=== PATIENT | female | born 2000 | race Caucasian/White ===

== ENCOUNTER 2021-07-20 23:27 | Observation (INO) ==
[2021-07-21 00:01] LABS: Basophils # (auto) 0.02 K/uL (0-0.2); Basophils % (auto) 0.2 %; Eosinophils # (auto) 0.24 K/uL (0-0.5); Eosinophils % (auto) 2.2 %; Hematocrit (blood only) 38.7 % (37-47); Immature Granulocytes % (auto) 0.9 %; Lymphocytes # (auto) 2.96 K/uL (1.2-3.4); Lymphocytes % (auto) 27.2 %; Mean Corpuscular Hemoglobin 28.3 pg (25-34); Mean Corpuscular Hgb Conc 33.6 g/dL (32-36); Mean Corpuscular Volume 84.3 fL (80-100); Mean Platelet Volume 9.9 fL (7.4-10.4); Monocytes # (auto) 0.68 K/uL (0.11-0.59); Monocytes % (auto) 6.3 %; Neutrophils # (auto) 6.87 K/uL (1.4-6.5); Neutrophils % (auto) 63.2 %; Platelet Count 516 K/uL (130-400); RDW Coefficient of Variation 13.1 % (11.5-14.5); RDW Standard Deviation 39.4 fL (36.4-46.3); Red Blood Count 4.59 M/uL (4.2-5.4); White Blood Count 10.87 K/uL (4.8-10.8)
[2021-07-21 00:22] LABS: BUN Creatinine Ratio 6.1 (10-20); Calcium 9.3 mg/dl (8.5-10.1)
[2021-07-21 00:28] LABS: Albumin Globulin Ratio 0.6 (0.9-2); Bilirubin,Total 0.4 mg/dl (0.2-1); Globulin 5.2 gm/dl (2.5-4.0); Total Protein 8.2 gm/dl (6.4-8.2)
[2021-07-21] MEDS ORDERED: ONDANSETRON INJ 2 MG/ML 2 ML VIAL IV STA (01:05)
--- NOTE | 2021-07-21 01:07 | Emergency Department Note ---
History of Present Illness General Chief complaint: GI Assessment Stated complaint: CONSTANT DIARRHEA,BLOATING,DEHYDR,ABD PAIN Time Seen by Provider: 07/21/21 00:48 History of Present Illness Maximum Pain Intensity: 5 This is a 21-year-old female that presents to the emergency department via private vehicle with complaints of "diarrhea, abdominal pain, dehydration". The patient notes that she presented to the emergency department at [facility] in late June. She notes that she was diagnosed with a kidney stone. She subsequently had a ureteral stent placed. A few days after this she began with vomiting. She presented to the emergency department. It was found that she had aspirated during the vomiting and subsequently required intubation and mechanical ventilation. She was in the ICU and mechanically ventilated for about 1.5 days. Patient states that she was recently discharged. She was doing well in the outpatient setting however did present to the emergency department on July 17 just a few days ago where she was evaluated for chest pain. At that time she was placed on colchicine and NSAIDs and was diagnosed with acute pericardial effusion, pleural effusion, pericarditis. She was also diagnosed with a UTI and placed on ciprofloxacin which she has been compliant with. She states that now she has developed diarrhea that is watery in nature and over the past 24 hours has had about 20 episodes of watery diarrhea. She also notes some lower abdominal discomfort. No known trauma or injury. She has not been able to eat or drink secondary to significant nausea. She feels as though when she attempts to eat or drink she will vomit. Patient does note that she recently was evaluated by cardiology. No shortness of breath. No fevers or chills. Home Medications Medication Instructions Recorded Confirmed Type ciprofloxacin HCl 500 mg tablet 500 mg PO BID #20 tab 07/17/21 07/21/21 Rx colchicine 0.6 mg capsule 0.6 mg PO BID #20 cap 07/17/21 07/21/21 Rx oxycodone 5 mg tablet 5 mg PO Q6H PRN 07/17/21 07/21/21 History hyoscyamine sulfate 0.125 mg 0.125 mg SUBLINGUAL Q6H PRN 07/21/21 07/21/21 History sublingual tablet phenazopyridine 200 mg tablet 200 mg PO TID PRN 07/21/21 07/21/21 History tamsulosin 0.4 mg capsule 0.4 mg PO HS 07/21/21 07/21/21 History Allergies Allergy/AdvReac Type Severity Reaction Status Date / Time No Known Allergies Allergy Verified 07/21/21 01:19 Past Med/Surg History Medical History History of kidney infection History of kidney stones Family History Father Kidney stone Social History Smoking Status: Never smoker Preferred Language: Guyanese Feels Safe at Home: Yes Review of Systems A total of 10 systems reviewed and were otherwise negative Physical Exam Vital Signs Vital Signs - 24 hr 07/20/21 23:32 07/21/21 01:21 07/21/21 02:30 Temperature 36.6 C Temperature Source Temporal Artery Scan Pulse Rate 116 H Pulse Rate [Finger] 86 102 H Pulse Rhythm [Finger] Regular Respiratory Rate 20 18 22 Respiratory Effort / Characteristics Non-Labored Non-Labored Spontaneous Respiratory Depth Normal Normal Normal Respiratory Pattern Regular Blood Pressure 137/94 Blood Pressure [Left Arm] 118/73 124/83 Blood Pressure Mean 108 Blood Pressure Mean [Left Arm] 88 96 Blood Pressure Position [Left Arm] Lying Pulse Oximetry 96 98 97 Oxygen Delivery Method Room Air Room Air Room Air Sepsis Recent Fever Within 48 Hours No Sepsis New/Unexplained Change in Mental Status N/A Sepsis Action Taken by Nursing No Action Required 07/21/21 03:00 07/21/21 04:05 07/21/21 04:30 Temperature Temperature Source Pulse Rate Pulse Rate [Finger] 100 H 95 H 99 H Pulse Rhythm [Finger] Respiratory Rate 18 18 18 Respiratory Effort / Characteristics Respiratory Depth Respiratory Pattern Blood Pressure Blood Pressure [Left Arm] 104/64 123/77 120/75 Blood Pressure Mean Blood Pressure Mean [Left Arm] 77 92 90 Blood Pressure Position [Left Arm] Pulse Oximetry 96 96 96 Oxygen Delivery Method Room Air Room Air Sepsis Recent Fever Within 48 Hours Sepsis New/Unexplained Change in Mental Status Sepsis Action Taken by Nursing 07/21/21 05:35 Temperature Temperature Source Pulse Rate Pulse Rate [Finger] 100 H Pulse Rhythm [Finger] Respiratory Rate 18 Respiratory Effort / Characteristics Respiratory Depth Respiratory Pattern Blood Pressure Blood Pressure [Left Arm] 124/79 Blood Pressure Mean Blood Pressure Mean [Left Arm] 94 Blood Pressure Position [Left Arm] Pulse Oximetry 96 Oxygen Delivery Method Sepsis Recent Fever Within 48 Hours Sepsis New/Unexplained Change in Mental Status Sepsis Action Taken by Nursing VITAL SIGNS - Vital signs and nursing notes were reviewed. Stable and afebrile. GENERAL - 21-year-old female appearing her stated age who is in no acute distress. Communicates well with provider and answers questions appropriately. SKIN - Without rashes. No meningeal or petechial rash. HEAD - NC/AT. EYES - PERRL with EOMI bilaterally. Sclera anicteric. EARS - No deformities of external structures noted on gross examination bilaterally. NOSE - Midline and without cyanosis. MOUTH/OROPHARYNX - Without perioral cyanosis. NECK - Neck with FROM. No nuchal rigidity. LUNGS - Chest wall symmetric without accessory muscle use, intercostals retractions, or central cyanosis. Normal vesicular breath sounds CTA B/L. No wheezes, rales, or rhonchi appreciated. CARDIAC - RRR with S1/S2. No murmur, rubs, or gallops appreciated. ABDOMEN - Abdominal contour normal without pulsations or visible masses. BS normoactive all four quadrants. There is generalized lower abdominal tenderness to palpation. No palpable masses, hepatosplenomegaly, or ascites noted. EXTREMITIES - No clubbing or peripheral cyanosis. +5/5 strength noted in UE/LE bilaterally. NEUROLOGIC - Cranial nerves II through XII grossly intact. PSYCH - A&O, and cooperates fully with examiner. Pt is very pleasant and interacts well with examiner. Course Administered Medications Discontinued Medications Sodium Chloride (Nss 1000ml) 1,000 mls @ 999 mls/hr IV .Q1H1M TRES Stop: 07/21/21 02:15 Last Infusion: 07/21/21 02:22 Dose: 0 mls/hr Documented by: [id number] Admin: 07/21/21 01:21 Dose: 999 mls/hr Documented by: [id number] Ceftriaxone Sodium (Rocephin) 1,000 mg in 50 mls @ 100 mls/hr IV NOW STA Stop: 07/21/21 03:58 Last Admin: 07/21/21 04:00 Dose: Not Given Documented by: [id number] Piperacillin Sod/Tazobactam Sod (Zosyn) 4.5 gm in 120 mls @ 240 mls/hr IV NOW ONE Stop: 07/21/21 04:01 Last Infusion: 07/21/21 04:42 Dose: 0 mls/hr Documented by: [id number] Admin: 07/21/21 04:04 Dose: 240 mls/hr Documented by: [id number] Ioversol (Optiray 320 100ml) 95 ml IV ONCE ONE Stop: 07/21/21 02:21 Last Admin: 07/21/21 02:21 Dose: 95 ml Documented by: [id number] Morphine Sulfate (Morphine Sulfate 4 Mg/Ml 1 Ml Carp\\Vial) 4 mg IV NOW STA Stop: 07/21/21 02:45 Last Admin: 07/21/21 02:53 Dose: 4 mg Documented by: [id number] Ondansetron HCl (Ondansetron Inj 2 Mg/Ml 2 Ml Vial) 4 mg IV NOW STA Stop: 07/21/21 01:06 Last Admin: 07/21/21 01:21 Dose: 4 mg Documented by: [id number] Medical Decision Making Laboratory Data Result diagrams: 07/20/21 23:46 07/21/21 01:25 Lab Results 07/20/21 07/20/21 07/21/21 Range/Units 23:46 23:46 01:25 WBC 10.87 H (4.8-10.8) K/uL RBC 4.59 (4.2-5.4) M/uL Hgb 13.0 (12.0-16.0) g/dL Hct 38.7 (37-47) % MCV 84.3 (80-100) fL MCH 28.3 (25-34) pg MCHC 33.6 (32-36) g/dL RDW Std Deviation 39.4 (36.4-46.3) fL RDW Coeff of Mann 13.1 (11.5-14.5) % Plt Count 516 H (130-400) K/uL MPV 9.9 (7.4-10.4) fL Immature Gran % (Auto) 0.9 % Neut % (Auto) 63.2 % Lymph % (Auto) 27.2 % Luce % (Auto) 6.3 % Eos % (Auto) 2.2 % Baso % (Auto) 0.2 % Neut # (Auto) 6.87 H (1.4-6.5) K/uL Lymph # (Auto) 2.96 (1.2-3.4) K/uL Luce # (Auto) 0.68 H (0.11-0.59) K/uL Eos # (Auto) 0.24 (0-0.5) K/uL Baso # (Auto) 0.02 (0-0.2) K/uL Immature Gran # (Auto) 0.10 H (0.00-0.02) K/uL Sodium 134 L (136-145) mmol/L Potassium 3.7 (3.5-5.1) mmol/L Chloride 104 (98-107) mmol/L Carbon Dioxide 24 (21-32) mmol/L Anion Gap 6.0 (3-11) BUN 5 L (7-18) mg/dl Creatinine 0.79 (0.6-1.2) mg/dl Est Cr Clr Drug Dosing 14.0 ml/min Est GFR ( Amer) 124.0 ml/min Est GFR (Non-Af Amer) 107.0 ml/min BUN/Creatinine Ratio 6.1 L (10-20) Glucose 124 H (70-99) mg/dl Lactate (0.4-2.0) mmol/L Calcium 9.3 (8.5-10.1) mg/dl Magnesium Cancelled 1.8 Total Bilirubin 0.4 (0.2-1) mg/dl AST (15-37) U/L ALT 34 (12-78) U/L Alkaline Phosphatase 109 (45-117) U/L Total Protein 8.2 (6.4-8.2) gm/dl Albumin 3.0 L (3.4-5.0) gm/dl Globulin 5.2 H (2.5-4.0) gm/dl Albumin/Globulin Ratio 0.6 L (0.9-2) Lipase 161 (73-393) U/L Urine Color Urine Appearance (Clear) Urine pH (4.5-7.5) Ur Specific [place] (1.000-1.030) Urine Protein (Negative) Urine Glucose (UA) (Negative) Urine Ketones (Negative) Urine Blood (Negative) Urine Nitrite (Negative) Urine Bilirubin (Negative) Urine Urobilinogen (Negative) Ur Leukocyte Esterase (Negative) Urine WBC (Auto) (0-5) /hpf Urine RBC (Auto) (0-4) /hpf U Hyaline Cast (Auto) (0-5) /lpf U Epithel Cells (Auto) (0-5) /lpf Urine Bacteria (Auto) (Negative) Ur Renal Epithelial Cell Calcium Oxalate Crystal (None Prsent) Urine Mucus (None Prsent) POC Ur Test (NEG) SARS-CoV-2, RNA, NAAT (NEGATIVE) 07/21/21 07/21/21 07/21/21 Range/Units 02:03 02:03 04:06 WBC (4.8-10.8) K/uL RBC (4.2-5.4) M/uL Hgb (12.0-16.0) g/dL Hct (37-47) % MCV (80-100) fL MCH (25-34) pg MCHC (32-36) g/dL RDW Std Deviation (36.4-46.3) fL RDW Coeff of Mann (11.5-14.5) % Plt Count (130-400) K/uL MPV (7.4-10.4) fL Immature Gran % (Auto) % Neut % (Auto) % Lymph % (Auto) % Luce % (Auto) % Eos % (Auto) % Baso % (Auto) % Neut # (Auto) (1.4-6.5) K/uL Lymph # (Auto) (1.2-3.4) K/uL Luce # (Auto) (0.11-0.59) K/uL Eos # (Auto) (0-0.5) K/uL Baso # (Auto) (0-0.2) K/uL Immature Gran # (Auto) (0.00-0.02) K/uL Sodium (136-145) mmol/L Potassium (3.5-5.1) mmol/L Chloride (98-107) mmol/L Carbon Dioxide (21-32) mmol/L Anion Gap (3-11) BUN (7-18) mg/dl Creatinine (0.6-1.2) mg/dl Est Cr Clr Drug Dosing ml/min Est GFR ( Amer) ml/min Est GFR (Non-Af Amer) ml/min BUN/Creatinine Ratio (10-20) Glucose (70-99) mg/dl Lactate 1.3 (0.4-2.0) mmol/L Calcium (8.5-10.1) mg/dl Magnesium Total Bilirubin (0.2-1) mg/dl AST (15-37) U/L ALT (12-78) U/L Alkaline Phosphatase (45-117) U/L Total Protein (6.4-8.2) gm/dl Albumin (3.4-5.0) gm/dl Globulin (2.5-4.0) gm/dl Albumin/Globulin Ratio (0.9-2) Lipase (73-393) U/L Urine Color Dark Yellow Urine Appearance Clear (Clear) Urine pH 5.0 (4.5-7.5) Ur Specific [place] 1.014 (1.000-1.030) Urine Protein 2+ H (Negative) Urine Glucose (UA) Negative (Negative) Urine Ketones Negative (Negative) Urine Blood 3+ H (Negative) Urine Nitrite Positive A (Negative) Urine Bilirubin Negative (Negative) Urine Urobilinogen Negative (Negative) Ur Leukocyte Esterase Trace H (Negative) Urine WBC (Auto) 10-30 H (0-5) /hpf Urine RBC (Auto) >30 H (0-4) /hpf U Hyaline Cast (Auto) 5-10 H (0-5) /lpf U Epithel Cells (Auto) >30 H (0-5) /lpf Urine Bacteria (Auto) 1+ H (Negative) Ur Renal Epithelial Cell Not Reportable Calcium Oxalate Crystal Present A (None Prsent) Urine Mucus Present A (None Prsent) POC Ur Test NEG (NEG) SARS-CoV-2, RNA, NAAT (NEGATIVE) 07/21/21 Range/Units 04:20 WBC (4.8-10.8) K/uL RBC (4.2-5.4) M/uL Hgb (12.0-16.0) g/dL Hct (37-47) % MCV (80-100) fL MCH (25-34) pg MCHC (32-36) g/dL RDW Std Deviation (36.4-46.3) fL RDW Coeff of Mann (11.5-14.5) % Plt Count (130-400) K/uL MPV (7.4-10.4) fL Immature Gran % (Auto) % Neut % (Auto) % Lymph % (Auto) % Luce % (Auto) % Eos % (Auto) % Baso % (Auto) % Neut # (Auto) (1.4-6.5) K/uL Lymph # (Auto) (1.2-3.4) K/uL Luce # (Auto) (0.11-0.59) K/uL Eos # (Auto) (0-0.5) K/uL Baso # (Auto) (0-0.2) K/uL Immature Gran # (Auto) (0.00-0.02) K/uL Sodium (136-145) mmol/L Potassium (3.5-5.1) mmol/L Chloride (98-107) mmol/L Carbon Dioxide (21-32) mmol/L Anion Gap (3-11) BUN (7-18) mg/dl Creatinine (0.6-1.2) mg/dl Est Cr Clr Drug Dosing ml/min Est GFR ( Amer) ml/min Est GFR (Non-Af Amer) ml/min BUN/Creatinine Ratio (10-20) Glucose (70-99) mg/dl Lactate (0.4-2.0) mmol/L Calcium (8.5-10.1) mg/dl Magnesium Total Bilirubin (0.2-1) mg/dl AST (15-37) U/L ALT (12-78) U/L Alkaline Phosphatase (45-117) U/L Total Protein (6.4-8.2) gm/dl Albumin (3.4-5.0) gm/dl Globulin (2.5-4.0) gm/dl Albumin/Globulin Ratio (0.9-2) Lipase (73-393) U/L Urine Color Urine Appearance (Clear) Urine pH (4.5-7.5) Ur Specific [place] (1.000-1.030) Urine Protein (Negative) Urine Glucose (UA) (Negative) Urine Ketones (Negative) Urine Blood (Negative) Urine Nitrite (Negative) Urine Bilirubin (Negative) Urine Urobilinogen (Negative) Ur Leukocyte Esterase (Negative) Urine WBC (Auto) (0-5) /hpf Urine RBC (Auto) (0-4) /hpf U Hyaline Cast (Auto) (0-5) /lpf U Epithel Cells (Auto) (0-5) /lpf Urine Bacteria (Auto) (Negative) Ur Renal Epithelial Cell Calcium Oxalate Crystal (None Prsent) Urine Mucus (None Prsent) POC Ur Test (NEG) SARS-CoV-2, RNA, NAAT NEGATIVE (NEGATIVE) Imaging Data Radiologist's Impression: CT ABDOMEN & PELVIS With Contrast: Direct comparison made to prior study from June 15, 2014. The liver is low in attenuation suggesting diffuse fatty infiltration. The spleen and pancreas appear normal. The gallbladder is contracted. Stomach and small bowel and colon appear normal. The appendix is not visualized. There are some areas of diminished enhancement in the right kidney and there is an 8 x 6 x 7 mm focal fluid collection adjacent to the posterior cortex. There is a right nephroureteral stent in standard position. Bladder appears normal. Uterus appears normal. There are mildly enlarged retroperitoneal lymph nodes. Vascular structures appear normal. There is no free peritoneal air, or fluid. Impression: Areas of diminished enhancement in the right kidney suggesting pyelonephritis. Small focal fluid collections adjacent posterior cortex may reflect an early abscess formation. Nephroureteral stent in place Radiologist: Lj Oh MD Study ready at 02:35 and initial results transmitted at 03:00 MDM Narrative Patient was seen and evaluated as above in room C07. Review was performed of triage nursing notes and vital signs. I did review pertinent previous visits and patient history. After obtaining a thorough history and physical examination the above work up was performed. Patient presents to us today with a rather recently complex past medical history. Her vital signs are overall stable. She is not actively vomiting but does have lower abdominal tenderness. She also has been experiencing several episodes of diarrhea over the past 24 hours. In short, the patient had a kidney stone, subsequently a ureteral stent was placed and a few days after began with vomiting and aspirated requiring intubation followed by mechanical ventilation and ICU stay. She was discharged and overall doing well and then developed some chest pain of which she was evaluated for here a few days ago. She at that time was diagnosed with an acute pericardial effusion, pleural effusion and pericarditis. She was placed on colchicine and NSAIDs for the findings listed previously as well as Cipro for UTI. She has been compliant with this medication. Options of care were discussed with the patient. IV access was established. Labs were drawn. Mild leukocytosis at 10.87. No anemia. No emergent metabolic disturbance. Mild hyponatremia at 134. Glucose 124. Pro-Guillermo 0.06. Urinalysis concerning for potential UTI. Culture pending. Review was performed of previous blood culture and urine culture. Urine culture did not grow out any distinct bacteria previously. CT scan was obtained of the abdomen and pelvis. Results as above. There is comments of areas of diminished enhancement in the right kidney suggesting pyelonephritis. Small focal fluid collections adjacent posterior cortex may reflect an early abscess. I discussed this with the patient, as well as the on-call urology PA, Humberto Ruggiero. He came to evaluate the patient. Please refer to his note regarding consultation. Case then discussed with the hospitalist service for admission/further evaluation and management. Patient was ordered broad-spectrum antibiotics. She was ordered 4.5 g of IV Zosyn. While here she was hydrated with IV normal saline as well as medicated for her pain with IV morphine and Zofran for her nausea. Please refer to further documentation regarding her stay. Case was discussed with the attending physician. GCS: 15 In the evaluation and treatment of this patient the following differential diagnoses were entertained: UTI, pyelonephritis, renal abscess, sepsis, COVID- 19, among others. Impression & Plan Pyelonephritis of right kidney, Intractable diarrhea, Abscess of right kidney Discharge Plan Visit Data Chief Complaint: GI Assessment Stated Complaint: CONSTANT DIARRHEA,BLOATING,DEHYDR,ABD PAIN ED Provider: Marcy Mckenzie ED Midlevel Provider: Wilfred Vargas Discharge Problem: Pyelonephritis of right kidney, Intractable diarrhea, Abscess of right kidney Patient Disposition: Admitted As Inpatient Condition: Good Forms Stand Alone Forms: [facility] Prescriptions Prescriptions: No Action oxycodone 5 mg tablet 5 mg PO Q6H PRN (Reason: Pain) RF: 0 ciprofloxacin HCl 500 mg tablet 500 mg PO BID Qty: 20 RF: 0 colchicine 0.6 mg capsule 0.6 mg PO BID Qty: 20 RF: 0 phenazopyridine 200 mg tablet 200 mg PO TID PRN (Reason: BLADDER PAIN) RF: 0 tamsulosin 0.4 mg capsule 0.4 mg PO HS RF: 0 hyoscyamine sulfate 0.125 mg tablet, sublingual 0.125 mg sublingual Q6H PRN (Reason: ABD PAIN) RF: 0 Referrals Referrals: Darvin Arteaga [Primary Care Provider] -
[2021-07-21] MEDS ORDERED: SODIUM CHLORIDE 0.9% 1000ML 1,000 ML IV SCH (01:15)
[2021-07-21 01:40] LABS: Potassium 3.7 mmol/L (3.5-5.1)
[2021-07-21 01:42] LABS: Magnesium 1.8 mg/dl (1.8-2.4)
[2021-07-21 02:16] LABS: Appearance Urine Clear (Clear); Bilirubin Urine Negative (Negative); Blood Urine 3+ (Negative); Color Urine Dark Yellow; Epithelial Cell Urine Auto >30 /lpf (0-5); Glucose Urine UA Negative (Negative); Ketones Urine Negative (Negative); Leukocyte Esterase Urine Trace (Negative); Nitrite Urine Positive (Negative); Protein Urine 2+ (Negative); RBC Urine Automated >30 /hpf (0-4); Specific Gravity Urine 1.014 (1.000-1.030); Urobilinogen Urine Negative (Negative)
[2021-07-21] MEDS ORDERED: OPTIRAY 320 100ml IV ONE (02:20)
[2021-07-21 02:30] LABS: Calcium Oxalate Crystals Urine Present (None Prsent); Mucus Urine Present (None Prsent)
[2021-07-21 02:31] LABS: Bacteria Urine Automated 1+ (Negative)
[2021-07-21] MEDS ORDERED: MoRPHine SULFATE 4 MG/ML 1 ML CARP\\VIAL IV STA (02:44)
[2021-07-21] MEDS ORDERED: cefTRIAXone SODIUM 1,000 MG/50 ML BAG IV STA (03:29)
[2021-07-21] MEDS ORDERED: PIPERACILLIN/TAZOBACTAM 4.5 GM/120 ML BAG IV ONE (03:32)
[2021-07-21] MEDS ORDERED: PIPERACILL/TAZOBAC CONSULT ACTIVE PRN ×2 (03:32→06:18)
--- NOTE | 2021-07-21 03:48 | Urology Consultation ---
Date of Consultation July 21, 2021 Assessment & Plan (1) Pyelonephritis: Patient is being admitted on the hospitalist service. We recommend proceeding as follows: Provide analgesics Provide antiemetics Due to the patient's pyelonephritis it is recommended the broad-spectrum antibiotics to be initiated particularly since the patient recently completed a course of Cipro. Reading emergency room clinician has initiated Zosyn which should continue. Urine culture has been sent and antibiotics can be tailored based on the results of this. Provide IV fluid for hydration Patient has evidence of a potential developing renal abscess. As the abscesses less than 1 cm in size is not amenable to drainage at this time. Will follow patient clinically along with serial labs. If she fails to clinically improve consideration can be given to reimaging her to see if there is further dev elopment of the size of this potential abscess. Remainder of plan as directed by the medical service Supervising Physician Co-Signing Physician Notes Agree with above documentation and plan. It does appear that she is developing a small perinephric collection - but the size of the collection is small enough that conservative management is certainly the best course. Cont IV abx for now. Supportive care for now. Stent well positioned - no plan for any surgical intervention until all infectious issues are resolved. History of Present Illness Reason for Consultation: Pyelonephritis History of Present Illness This is a 21-year-old female with a somewhat complicated recent past medical history. The patient notes that she was seen at a hospital in [place] at the end of June of this year secondary to a right-sided kidney stone. Patient notes that on July 01 she underwent a cystoscopy with a right ureteral stent placement. She notes that plans were in place for her to undergo lithotripsy but that this has yet to be performed. Patient notes that proximally 2 days after her cystoscopy and ureteral stent placement she had episode of nausea vomiting at which time she aspirated and again presented to the emergency department at [place]. Because of her aspiration she required intubation and mechanical ventilation. Patient notes that she was on a ventilator for approximately 1-1/2 days but was ultimately discharged home from that hospitalization and she completed a course of antibiotics in the form of Augmentin and Flagyl. Following her hospitalization in [place] she presented to the [facility] emergency department on July 17 secondary to pleuritic chest pain. At her emergency department visits patient did have labs and imaging jf fuller I reviewed. A CBC revealed white blood cell count was 10.6. Hemoglobin and hematocrit were noted to be normal. Her platelet count was elevated at 631,000. A chemistry profile at that time showed sodium and potassium were both within normal range. Her BUN and creatinine were also both noted to be normal. Urinalysis at that time showed cloudy appearing urine with positive nitrites, 1+ leukocyte esterase, 10-30 white blood cells per high-power field, and no bacteria. Yeast was noted to be present as well. A chest CT at that time showed no evidence of pulmonary emboli. A trace right pleural effusion and a trace pericardial effusion were noted. No pneumonia was noted on that study. The right kidney was partially visualized on the study that showed some right perinephric edema and some inflammation. Treating emergency room physician did discuss the pericardial effusion with cardiology and is felt that outpatient follow-up is appropriate. Patient was provided with colchicine and NSAIDs. In addition due to the inflammatory changes noted of the right kidney the case was discussed with Dr. Montesinos of urology. Patient did have blood and urine cultures obtained in the emergency department. These were reviewed and there is no growth on blood cultures. Urine culture did show 3 types of organisms and low counts and no sensitivities were obtained. The patient did receive Rocephin in the emergency department and was ultimately discharged home on oral Cipro. Patient presented to [facility] emergency department today secondary to constant diarrhea and abdominal bloating along with some generalized abdominal pain. She also reports some right-sided flank pain along with urinary frequency and some dysuria. She does note some pleuritic type chest pain that is noted to be worse with deep inspirations. He denies any lightheadedness or dizziness. She denies any fevers, shakes, chills. She had labs and imaging during this visit which I independently reviewed. A CBC revealed white blood cell count was 10.8. Hemoglobin and hematocrit are both noted be normal. Platelet count had a slight elevation at 516,000. Chemistry profile showed sodium was 134. Potassium is 3.7. BUN and creatinine are 5 and 0.7. Urinalysis shows dark yellow urine which is positive for nitrites. There is trace leukocyte esterase. 10-30 white blood cells per high-power field are noted along with 1+ bacteria. A urine test was noted to be negative. A CT scan of the abdomen and pelvis was performed this demonstrated an 8 x 6 x 7 mm fluid collection adjacent to the posterior cortex of the right kidney suggestive of an early abscess. A right ureteral stent was noted to be in place. Inflammatory changes suggestive of pyelonephritis were noted. At the time of my interview the patient was resting comfortably in bed. She was noted to be afebrile, and normotensive. She was in no distress. A slight tachycardia with a heart rate of 100-104 was present. She was also noted to have a pulse ox of 96% on room air. Allergies Allergy/AdvReac Type Severity Reaction Status Date / Time No Known Allergies Allergy Verified 07/21/21 01:19 Home Medications Medication Instructions Recorded Confirmed Type ciprofloxacin HCl 500 mg tablet 500 mg PO BID #20 tab 07/17/21 07/21/21 Rx colchicine 0.6 mg capsule 0.6 mg PO BID #20 cap 07/17/21 07/21/21 Rx oxycodone 5 mg tablet 5 mg PO Q6H PRN 07/17/21 07/21/21 History hyoscyamine sulfate 0.125 mg 0.125 mg SUBLINGUAL Q6H PRN 07/21/21 07/21/21 History sublingual tablet phenazopyridine 200 mg tablet 200 mg PO TID PRN 07/21/21 07/21/21 History tamsulosin 0.4 mg capsule 0.4 mg PO HS 07/21/21 07/21/21 History Patient History Medical History History of kidney infection History of kidney stones Family History Father Kidney stone Social History Smoking Status: Never smoker Hx Alcohol Use: No Hx Substance Use: No Preferred Language: Australian Communication Ability: Effective Wheelage Clerk Required: No Beliefs That Will Affect Care: None Feels Safe at Home: Yes Assistive Devices: None Past Medical History PMF Narrative: Past medical history: 1. History of aspiration pneumonia 2. History of pericardial effusion 3. History of pleural effusion Past surgical history: 1. History of cystoscopy with right ureteral stent placement Review of Systems Constitutional: no fever and no chills Ear, Nose, Mouth, Throat: no ear pain Respiratory: + pain on inspiration; no cough and no dyspnea Cardiovascular: + chest pain (Noted with inspiration) Gastrointestinal: + abdominal pain, + nausea and + vomiting Genitourinary: + dysuria, + urinary frequency and + flank pain (Right sided) Musculoskeletal: + back pain (Right-sided flank pain) Integumentary: no rash Neurologic: no localized weakness Physical Exam Constitutional: well developed and well nourished; no acute distress Eyes: no conjunctival abnormality ENMT: Ears: no hearing impairment Mouth: no oropharynx abnormality Neck: trachea midline Respiratory: normal respiratory effort; no respiratory distress and no labored breathing Breath sounds noted to be slightly decreased at bases Cardiovascular: Rate/Rhythm: regular rate and regular rhythm Gastrointestinal (Abdomen): Abdomen is soft and nondistended. Bowel sounds are present. There is some minor pain in a generalized fashion with palpation Musculoskeletal: No calf tenderness Skin: no rashes Neurologic: moves all extremities Psychiatric: Orientation: alert and oriented x 3 Affect: euthymic affect Results & Data ([facility]) Vital Signs (Past 12 Hours) Vital Signs Temp Pulse Pulse Resp BP BP Pulse Ox 07/21/21 03:00 100 H 18 104/64 96 07/21/21 02:30 102 H 22 124/83 97 07/21/21 01:21 86 18 118/73 98 07/20/21 23:32 36.6 C 116 H 20 137/94 96 PG Care Time/CCT Total # of Minutes Spent Total Time Spent with Patient: Total time spent is greater than 50% in coordination of care (as documented) at patient's floor/unit and/or counseling patient: Coding Level of Care Code 75806 Inpt Consult Level 5 Diagnoses Pyelonephritis N12
--- NOTE | 2021-07-21 05:10 | History & Physical Report ---
Date of Service July 21, 2021 Assessment & Plan (1) Pyelonephritis of right kidney: Plan: Right pyelonephritis/early perinephric abscess/nephroureteral stent- Previously on Augmentin and Flagyl after discharge to [facility]. Started on ciprofloxacin on July 17 at [facility] ED Follow urine culture sensitivity Continue Zosyn 4.5 g IV every 8 hours begun in the ED (2) Perinephric abscess: Plan: See above (3) Acute pericardial effusion: Plan: Pericardial effusion/pericarditis- Was seen by cardiology Dr. Viera in [facility] a few days ago. At that time colchicine was increased from 0.6 twice daily to 3 times daily. Patient unfortunately does not seem to have tolerated the increased dose of colchicine well. He was to review times the acute worsening of her diarrhea on the first toe she took to 3 times daily dosing, and was significantly worse the past 24 hours For now we will hold colchicine. She had been on ibuprofen, which was also discontinued recently Place on methylprednisolone 20 mg IV every 8 hours Consult with cardiology Dr. Viera during the day to coordinate care (4) Pericarditis: Plan: See above (5) Intractable diarrhea: Plan: Differential includes antibiotic associated diarrhea versus C. difficile colitis versus adverse reaction to colchicine 3 times daily dosing Stool studies pending, follow results Cholestyramine 4 g p.o. twice daily with meals Hold colchicine for now Place on Florastor p.o. twice daily History of Present Illness Chief Complaint: The patient presents to the emergency department with complaint of constant diarrhea, abdominal pain and bloating, and feelings of dehydration, worsening over the past 24 to 36 hours. Primary Care Provider: Darvin Arteaga The patient is a 21-year-old female with a past medical history including acute pericardial effusion, pleural effusion, pericarditis, kidney stones, pyelonephritis and urinary tract infection. The patient underwent a cystoscopy with right ureteral stent placement on July 01 without complication. She reports that 2 days later, she developed nausea and vomiting, developed moist later diagnosed as an aspiration pneumonia, and was admitted to [facility] ICU on mechanical ventilator. She was later discharged on Augmentin and Flagyl, and more recently was changed to ciprofloxacin orally. On July 17 the patient was seen at [facility] emergency department due to pleuritic chest pain, underwent a CT scan which was negative for PE, but did show a trace right pleural effusion and trace pericardial effusion. At that time, she was placed on colchicine 0.6 mg twice daily and ibuprofen. She was also started on ciprofloxacin 5 mg p.o. twice daily at that time as well. She reports seeing steward dishwasher Dr. Viera at [facility], where echocardiogram did note pericardial effusion, and she reports that her colchicine was increased from twice daily to 3 times daily. Shortly after starting the 3 times daily dosing, she developed significant diarrhea, which is now on the second day, has become very severe with BMs to frequent to enumerate. For these reasons she presented to [facility] emergency department for further assessment. CT scan of abdomen the pelvis at [facility] ED this evening: Right pyelonephritis with perinephric abscess, right nephroureteral stent. Abnormal laboratories: Magnesium 1.8, albumin 3.0, WBC 10.87, hemoglobin 13.0, hematocrit 30.7, platelets 516. COVID-19 testing in the ED this evening is negative Allergies Allergy/AdvReac Type Severity Reaction Status Date / Time No Known Allergies Allergy Verified 07/21/21 01:19 Home Medications Medication Instructions Recorded Confirmed Type ciprofloxacin HCl 500 mg tablet 500 mg PO BID #20 tab 07/17/21 07/21/21 Rx colchicine 0.6 mg capsule 0.6 mg PO BID #20 cap 07/17/21 07/21/21 Rx oxycodone 5 mg tablet 5 mg PO Q6H PRN 07/17/21 07/21/21 History hyoscyamine sulfate 0.125 mg 0.125 mg SUBLINGUAL Q6H PRN 07/21/21 07/21/21 History sublingual tablet phenazopyridine 200 mg tablet 200 mg PO TID PRN 07/21/21 07/21/21 History tamsulosin 0.4 mg capsule 0.4 mg PO HS 07/21/21 07/21/21 History Past Med/Surg History Medical History (Updated 07/21/21 @ 05:50 by Bradley Taylor MD) History of kidney infection History of kidney stones Family History Father Kidney stone Social History Smoking Status: Never smoker Preferred Language: Filipino Feels Safe at Home: Yes Review of Systems Review of Systems: The patient denies chest pain, palpitations, shortness of breath, dyspnea on exertion, cough, lower extremity swelling, sore throat, fevers, chills, sweats, vomiting, blood in urine or stool, dysuria, urinary frequency or urgency, lightheadedness, dizziness, headache, memory loss, loss of consciousness, rash, abnormal bruising or bleeding, imbalance, focal or generalized weakness, numbness or tingling in arms or legs, generalized arthralgias or myalgias, neck pain, or night sweats. The review of systems is otherwise negative other than for that already noted above, and at least 10 systems have been reviewed. Physical Exam Physical Exam: The patient is awake, alert and oriented 3, well developed and well nourished, normocephalic and atraumatic, lying in bed and in no acute distress. HEENT--PERRL, EOMI, mucous membranes and oropharynx mildly dry. Neck--supple. No JVD. No bruits. Thyroid normal, trachea midline, no adenopathy. Heart--normal S1 and S2. No murmurs, rubs or gallops. Lungs--clear bilaterally, no respiratory distress, no accessory muscle use. Abdomen--normal bowel sounds and soft. Nontender. Nondistended. Extremities--no cyanosis or clubbing. No edema. Dermatologic--normal skin turgor, normal color, no abnormal lymph nodes, no rash. Neurologic--cranial nerves II through XII grossly intact. Rheumatologic--limited exam Psychiatric--normal affect. Results & Data Results & Data ([facility]) Vital Signs (Past 12 Hours) Vital Signs Temp Pulse Pulse Resp BP BP Pulse Ox 07/21/21 04:30 99 H 18 120/75 96 07/21/21 04:05 95 H 18 123/77 96 07/21/21 03:00 100 H 18 104/64 96 07/21/21 02:30 102 H 22 124/83 97 07/21/21 01:21 86 18 118/73 98 07/20/21 23:32 97.9 F 116 H 20 137/94 96 Laboratory Results Laboratory Results WBC 10.87 K/uL (4.8-10.8) H 07/20/21 23:46 RBC 4.59 M/uL (4.2-5.4) 07/20/21 23:46 Hgb 13.0 g/dL (12.0-16.0) 07/20/21 23:46 Hct 38.7 % (37-47) 07/20/21 23:46 MCV 84.3 fL (80-100) 07/20/21 23:46 MCH 28.3 pg (25-34) 07/20/21 23:46 MCHC 33.6 g/dL (32-36) 07/20/21 23:46 RDW Std Deviation 39.4 fL (36.4-46.3) 07/20/21 23:46 RDW Coeff of Mann 13.1 % (11.5-14.5) 07/20/21 23:46 Plt Count 516 K/uL (130-400) H 07/20/21 23:46 MPV 9.9 fL (7.4-10.4) 07/20/21 23:46 Immature Gran % (Auto) 0.9 % 07/20/21 23:46 Neut % (Auto) 63.2 % 07/20/21 23:46 Lymph % (Auto) 27.2 % 07/20/21 23:46 [place] % (Auto) 6.3 % 07/20/21 23:46 Eos % (Auto) 2.2 % 07/20/21 23:46 Baso % (Auto) 0.2 % 07/20/21 23:46 Neut # (Auto) 6.87 K/uL (1.4-6.5) H 07/20/21 23:46 Lymph # (Auto) 2.96 K/uL (1.2-3.4) 07/20/21 23:46 [place] # (Auto) 0.68 K/uL (0.11-0.59) H 07/20/21 23:46 Eos # (Auto) 0.24 K/uL (0-0.5) 07/20/21 23:46 Baso # (Auto) 0.02 K/uL (0-0.2) 07/20/21 23:46 Immature Gran # (Auto) 0.10 K/uL (0.00-0.02) H 07/20/21 23:46 Sodium 134 mmol/L (136-145) L 07/20/21 23:46 Potassium 3.7 mmol/L (3.5-5.1) 07/21/21 01:25 Chloride 104 mmol/L (98-107) 07/20/21 23:46 Carbon Dioxide 24 mmol/L (21-32) 07/20/21 23:46 Anion Gap 6.0 (3-11) 07/20/21 23:46 BUN 5 mg/dl (7-18) L 07/20/21 23:46 Creatinine 0.79 mg/dl (0.6-1.2) 07/20/21 23:46 Est Cr Clr Drug Dosing 14.0 ml/min 07/20/21 23:46 Est GFR ( Amer) 124.0 ml/min 07/20/21 23:46 Est GFR (Non-Af Amer) 107.0 ml/min 07/20/21 23:46 BUN/Creatinine Ratio 6.1 (10-20) L 07/20/21 23:46 Glucose 124 mg/dl (70-99) H 07/20/21 23:46 Lactate 1.3 mmol/L (0.4-2.0) 07/21/21 04:06 Calcium 9.3 mg/dl (8.5-10.1) 07/20/21 23:46 Magnesium 1.8 mg/dl (1.8-2.4) 07/21/21 01:25 Total Bilirubin 0.4 mg/dl (0.2-1) 07/20/21 23:46 AST U/L (15-37) 07/20/21 23:46 ALT 34 U/L (12-78) 07/20/21 23:46 Alkaline Phosphatase 109 U/L (45-117) 07/20/21 23:46 Total Protein 8.2 gm/dl (6.4-8.2) 07/20/21 23:46 Albumin 3.0 gm/dl (3.4-5.0) L 07/20/21 23:46 Globulin 5.2 gm/dl (2.5-4.0) H 07/20/21 23:46 Albumin/Globulin Ratio 0.6 (0.9-2) L 07/20/21 23:46 Lipase 161 U/L (73-393) 07/20/21 23:46 Procalcitonin 0.06 ng/ml (0-0.5) 07/21/21 04:06 Urine Color Dark Yellow 07/21/21 02:03 Urine Appearance Clear (Clear) 07/21/21 02:03 Urine pH 5.0 (4.5-7.5) 07/21/21 02:03 Ur Specific [place] 1.014 (1.000-1.030) 07/21/21 02:03 Urine Protein 2+ (Negative) H 07/21/21 02:03 Urine Glucose (UA) Negative (Negative) 07/21/21 02:03 Urine Ketones Negative (Negative) 07/21/21 02:03 Urine Blood 3+ (Negative) H 07/21/21 02:03 Urine Nitrite Positive (Negative) A 07/21/21 02:03 Urine Bilirubin Negative (Negative) 07/21/21 02:03 Urine Urobilinogen Negative (Negative) 07/21/21 02:03 Ur Leukocyte Esterase Trace (Negative) H 07/21/21 02:03 Urine WBC (Auto) 10-30 /hpf (0-5) H 07/21/21 02:03 Urine RBC (Auto) >30 /hpf (0-4) H 07/21/21 02:03 U Hyaline Cast (Auto) 5-10 /lpf (0-5) H 07/21/21 02:03 U Epithel Cells (Auto) >30 /lpf (0-5) H 07/21/21 02:03 Urine Bacteria (Auto) 1+ (Negative) H 07/21/21 02:03 Ur Renal Epithelial Cell Not Reportable 07/21/21 02:03 Calcium Oxalate Crystal Present (None Prsent) A 07/21/21 02:03 Urine Mucus Present (None Prsent) A 07/21/21 02:03 POC Ur Test NEG (NEG) 07/21/21 02:03 SARS-CoV-2, RNA, NAAT NEGATIVE (NEGATIVE) 07/21/21 04:20 Diagnostic Findings [facility] Patient: GUERDA OHARA (Female) : 00 Status: ER Date: 07/21/21 02:26 Room #: History: PT. REPORTS LOWER ABDOMINAL PAIN TO RT. FLANK PAIN AND DIARRHEA PT. REPORTS SHE IS CURRENTLY ON ANTIBIOTICS APPENDIX PRESENT OPTI 320 95 CC Slices: [id number] Priors: Tech: Akanksha Fu @ [phone] Exams: CT ABDOMEN & PELVIS With Contrast Contrast: IV Amt: OPTIRAY 320 [id number] CC Accession Numbers: [id number] Referring Physician: REFERRED SELF Preliminary Findings Only See Final Report For Complete Findings CT ABDOMEN & PELVIS With Contrast: Direct comparison made to prior study from June 15, 2014. The liver is low in attenuation suggesting diffuse fatty infiltration. The spleen and pancreas appear normal. The gallbladder is contracted. Stomach and small bowel and colon appear normal. The appendix is not visualized. There are some areas of diminished enhancement in the right kidney and there is an 8 x 6 x 7 mm focal fluid collection adjacent to the posterior cortex. There is a right nephroureteral stent in standard position. Bladder appears normal. Uterus appears normal. There are mildly enlarged retroperitoneal lymph nodes. Vascular structures appear normal. There is no free peritoneal air, or fluid. Impression: Areas of diminished enhancement in the right kidney suggesting pyelonephritis. Small focal fluid collections adjacent posterior cortex may reflect an early abscess formation. Nephroureteral stent in place Radiologist: Lj Oh MD Study ready at 02:35 and initial results transmitted at 03:00 *This report constitutes a preliminary interpretation only. Non-acute findings felt to be unrelated to the clinical presentation may not be discussed in this report. The study will be interpreted and a final report will be generated by the local Radiologist the following shift. To reach the hospital radiology department call [phone]. If a discrepancy is found between the preliminary and final interpre tations of this study, please notify us via our Client Portal at [email or web address], under QA Exams. You can also fax this report with a description of the discrepancy, or include the final report, to our daytime fax number [phone]. If faxing, please indicate the severity of discrepancy using one of the following categories: [ ] 1 - Agree/Informational [ ] 2 - Unlikely to Affect Management [ ] 3 - Possible Eventual Change of Management [ ] 4 - Probable Immediate Change of Management For all other patient related information, please fax us at [phone]. [id number] Code Status & VTE Plan Code Status Full code VTE Prophylaxis Plan VTE Prophylaxis will be ordered: Yes PG Care Time/CCT Total # of Minutes Spent Total Time Spent with Patient: Total time spent is greater than 50% in coordination of care (as documented) at patient's floor/unit and/or counseling patient: Coding Level of Care Code 46909 Initial Inpt Care Lvl 3 Diagnoses Pyelonephritis of right kidney N12 Perinephric abscess N15.1 Acute pericardial effusion I30.9 Pericarditis I31.9 Chronicity: unspecified Pericarditis type: unspecified type Intractable diarrhea R19.7 (1) Pericarditis Chronicity: unspecified Pericarditis type: unspecified type Qualified Code(s): I31.9 - Disease of pericardium, unspecified
[2021-07-21] MEDS ORDERED: HYOSCYAMINE SULFATE 0.125 MG TAB PO PRN (06:18)
[2021-07-21] MEDS ORDERED: ONDANSETRON INJ 2 MG/ML 2 ML VIAL IV PRN (06:18)
[2021-07-21] MEDS ORDERED: PHENAZOPYRIDINE HCL 200 MG TAB PO PRN (06:18)
[2021-07-21] MEDS ORDERED: ACETAMINOPHEN 325 MG TAB PO PRN (06:18)
[2021-07-21] MEDS ORDERED: MAGNESIUM SULFATE / D5W 1 GM/100 ML BAG IV ONE (06:30)
[2021-07-21] MEDS: oxyCODONE HCL IR 5 MG TAB (IMMEDIATE RELEASE) PO PRN ×3 (06:43→20:37)
[2021-07-21] MEDS: methylPREDNISolone 20 MG in SYRINGE 0 ML IV SCH ×3 (06:43→20:37)
[2021-07-21] MEDS ORDERED: FLUARIX QUADRIVALENT 0.5 ML SYR IM ONE (08:00)
--- NOTE | 2021-07-21 09:13 | CT Scan Report ---
CT abd pelvis IV con only CLINICAL HISTORY: Lower abd pain, diarrhea, on antibiotics TECHNIQUE: Helical axial images of the abdomen and pelvis were obtained and displayed. Automated dose lowering techniques and/or adjustment according to patient size were utilized for this exam. This e xam was performed with intravenous contrast. COMPARISON: Comparison is made to CT abdomen and pelvis 06/15/2014 FINDINGS: Lower chest: Bibasilar atelectasis is seen. Liver: Hepatic steatosis is noted. Gallbladder and biliary tree: The gallbladder is contracted. No intra- or extrahepatic biliary ductal dilation. Pancreas: Unremarkable, no focal lesions. Spleen: Splenule is incidentally noted. Adrenals: Unremarkable. Kidneys and ureters: There is heterogeneous hypoenhancement of the right kidney with suggestion of we dge-shaped morphology. There is surrounding fat stranding. There is a small rim-enhancing collection in the posterior aspect of the right kidney measuring approximately 13 mm in diameter. A right nephro ureteral stent is seen with mild caliectasis versus hydronephrosis. The left kidney is unremarkable. Bladder: Limited evaluation due to underdistention. Reproductive organs: Unremarkable. Bowel: Unremarkable. Lymph nodes Retroperitoneal: Subcentimeter lymph nodes are noted. Mesenteric: Unremarkable. Pelvic: Unremarkable. Peritoneum: Normal Vessels: Unremarkable. Abdominal wall: Unremarkable. Bones: Unremarkable. IMPRESSION: Right pyelonephritis with a small posterior fluid collection which may reflect developing abscess. A nephroureteral stent is in place on the right. ACT 112: Negative or not required by law. Electronically signed by: Farshad Steward M.D. 07/21/2021 9:12 AM
[2021-07-21] MEDS: SACCHAROMYCES BOULARDII 250 MG CAP PO SCH ×2 (09:41→20:37)
[2021-07-21] MEDS: CHOLESTYRAMINE LIGHT 4 GM PKT PO SCH ×2 (09:42→20:39)
[2021-07-21] MEDS: PIPERACILLIN/TAZOBACTAM 4.5 GM in DEXTROSE 5% 100 ML IV SCH ×2 (09:45→17:17)
--- NOTE | 2021-07-21 15:44 | History & Physical Bridge Note ---
Date of Service July 21, 2021 History & Physical Bridge Note I have examined the patient, reviewed the History & Physical and in the interval since the performance of the History & Physical I have noted the following changes of clinical significance: Feeling better. Has some 6/10 pain in the right flank. Only has pain in the substernal region with deep inspiration. Denies shortness of breath. Has some dysuria she thinks is from the ureteral stent. Telemetry with sinus rhythm and sinus tachycardia with rates in the 90s to 100s Only one loose stool early this morning which was negative for C. difficile. Vitals reviewed Gen: AAOx3, NAD HEENT: Anicteric sclerae, EOMI CV: RRR no mgr nl S1S2 Pulm: CTAB no wcr Abd: +BS soft NT ND no masses or hernias Ext: No edema, 2+ DP pulses Skin: No rashes, warm/dry Neuro: Labs reviewed full strength throughout 21-year-old female here with recent history of right ureteral stent placement with complicated postoperative course of aspiration pneumonia requiring intubation, pericarditis and pleural effusion, now here with diarrhea secondary to colchicine and also with right perinephric abscess and pyelonephritis -Continue IV Zosyn -Follow cultures -Continue IV steroids for pericarditis -Check echocardiogram
[2021-07-21] MEDS: TAMSULOSIN HCL 0.4 MG CAP PO SCH (20:37)
[2021-07-22] MEDS: PIPERACILLIN/TAZOBACTAM 4.5 GM in DEXTROSE 5% 100 ML IV SCH ×3 (02:11→17:03)
[2021-07-22] MEDS: methylPREDNISolone 20 MG in SYRINGE 0 ML IV SCH (06:06)
[2021-07-22 07:04] LABS: Basophils # (auto) 0.01 K/uL (0-0.2); Basophils % (auto) 0.1 %; Eosinophils # (auto) 0.01 K/uL (0-0.5); Eosinophils % (auto) 0.1 %; Hematocrit (blood only) 35.7 % (37-47); Hemoglobin 12.2 g/dL (12.0-16.0); Immature Granulocytes # (auto) 0.08 K/uL (0.00-0.02); Immature Granulocytes % (auto) 0.6 %; Lymphocytes # (auto) 1.66 K/uL (1.2-3.4); Lymphocytes % (auto) 12.9 %; Mean Corpuscular Hemoglobin 28.3 pg (25-34); Mean Corpuscular Hgb Conc 34.2 g/dL (32-36); Mean Corpuscular Volume 82.8 fL (80-100); Mean Platelet Volume 9.9 fL (7.4-10.4); Monocytes # (auto) 0.49 K/uL (0.11-0.59); Monocytes % (auto) 3.8 %; Neutrophils # (auto) 10.58 K/uL (1.4-6.5); Neutrophils % (auto) 82.5 %; Platelet Count 443 K/uL (130-400); RDW Coefficient of Variation 13.1 % (11.5-14.5); RDW Standard Deviation 39.7 fL (36.4-46.3); Red Blood Count 4.31 M/uL (4.2-5.4); White Blood Count 12.83 K/uL (4.8-10.8)
[2021-07-22 07:36] LABS: Albumin Level 2.8 gm/dl (3.4-5.0); BUN Creatinine Ratio 8.6 (10-20); Calcium 9.5 mg/dl (8.5-10.1); Est GFR (African American) 144.2 ml/min; Est GFR (Non-African American) 124.4 ml/min; Magnesium 2.3 mg/dl (1.8-2.4); Potassium 3.9 mmol/L (3.5-5.1)
[2021-07-22 07:38] LABS: Albumin Globulin Ratio 0.6 (0.9-2); Bilirubin,Total 0.5 mg/dl (0.2-1); Globulin 4.7 gm/dl (2.5-4.0); Total Protein 7.5 gm/dl (6.4-8.2)
[2021-07-22] MEDS: SACCHAROMYCES BOULARDII 250 MG CAP PO SCH ×2 (08:49→19:35)
[2021-07-22] MEDS: oxyCODONE HCL IR 5 MG TAB (IMMEDIATE RELEASE) PO PRN ×2 (08:49→19:39)
--- NOTE | 2021-07-22 09:29 | Urology Progress Note ---
Date of Service July 22, 2021 Assessment & Plan (1) Pyelonephritis of right kidney: Plan: stent on the right - complex course since the stent was placed - possible small perinephric abscess - this developed despite a recent course of cipro - had a plan for stent removal in [place], but this was delayed secondary to cardiac developments - given the current findings - leukocytosis, CT findings, etc - she will likely need further abx therapy prior to stent removal - she is planning to contact her urologist tomorrow to arrange for f/u - no plans for any intervention during this hospitalization - please call if further issues during her current stay Admission and Anticipated Discharge Date Admission Date: July 21, 2021 Subjective subjectively feeling better some stent pain, particularly at the end of voiding has a plan to follow up with her urology team in [place] Physical Exam Physical Exam: comfortable appearing afeb overnight non-tachy abd soft, minimal right flank tenderness Results & Data ([facility]) Vital Signs (Past 12 Hours) Vital Signs Temp Pulse Pulse Resp BP Pulse Ox 07/22/21 07:39 36.7 C 71 16 102/70 95 07/22/21 03:15 36.4 C L 92 H 94/63 L 94 07/22/21 00:43 91 H 07/21/21 23:53 36.6 C 85 20 97/63 L 94 PG Care Time/CCT Total # of Minutes Spent Total Time Spent with Patient: Total time spent is greater than 50% in coordination of care (as documented) at patient's floor/unit and/or counseling patient: Coding Level of Care Code 32808 Subseq Hosp Care Lvl 3 Diagnoses Pyelonephritis of right kidney N12
[2021-07-22] MEDS: CHOLESTYRAMINE LIGHT 4 GM PKT PO SCH (10:29)
--- NOTE | 2021-07-22 10:36 | Electrocardiogram Report ---
Test Reason : Blood Pressure : / mmHG Vent. Rate : 092 BPM Atrial Rate : 092 BPM P-R Int : 164 ms QRS Dur : 076 ms QT Int : 374 ms P-R-T Axes : 002 002 -12 degrees QTc Int : 462 ms Normal sinus rhythm Cannot rule out Inferior infarct , age undetermined Nonspecific ST abnormality Anterior leads Abnormal ECG When compared with ECG of 17-JUL-2021 14:27, Criteria for Anterior infarct are no longer Present Nonspecific T wave abnormality no longer evident in Lateral leads Confirmed by Alex Simpson ([id number]) on 07/22/2021 10:36:15 AM Referred By: REFERRED SELF Confirmed By:Alex Simpson
[2021-07-22] MEDS ORDERED: predniSONE 20 MG TAB PO SCH (12:00)
--- NOTE | 2021-07-22 12:10 | Hospitalist Progress Note ---
Date of Service July 22, 2021 Assessment & Plan (1) Intractable diarrhea: Plan: Presented with severe diarrhea in the setting of taking increased dose of colchicine 3 times daily for her acute pericarditis as below C. difficile is negative, stool culture pending but no growth to date Diarrhea has completely resolved with discontinuation of high-dose colchicine as well as addition of cholestyramine and Florastor Electrolytes normal and she is with improved hydration -Restarting colchicine at lower dose for pericarditis as below -Add on Imodium as needed -Discontinue cholestyramine -Continue Florastor -If diarrhea returns with addition of colchicine, would have to discontinue it and switch back to corticosteroids for pericarditis (2) Pyelonephritis of right kidney: Plan: Right pyelonephritis/early perinephric abscess/nephroureteral stent- Had right ureteral stent placed for stone on 07/01 at [facility] Had complicated postoperative course with nausea/vomiting leading to aspiration pneumonia and ventilator dependent respiratory failure She was then on Augmentin and Flagyl after discharge but seems this was more for the aspiration pneumonia? Seen in the [facility] ER on 07/17 for chest pain related to acute pericarditis but was found to have UTI-started on ciprofloxacin at that time Her acute presentation to the hospital this time was more for her diarrhea, and not consistent with worsening pyelonephritis CT abdomen/pelvis on 07/20 does show small right perinephric abscess and evidence of acute pyelonephritis, UA consistent with UTI, and with mild leukocytosis Remains afebrile and has had the same right flank pain ever since she had the stent placed -I would not consider this necessarily a failure of Cipro, but with profuse diarrhea, she may not have been absorbing the Cipro very well -Appreciate urology consultation-would not perform any urologic intervention in the setting of acute infection-stent is in good position -Continue IV Zosyn for now -Follow urine and blood cultures -May be able to convert back to Cipro upon discharge and would continue extended course for abscess -Consider repeat imaging with renal ultrasound in the near future -Continue oxycodone as needed for pain, is also on ibuprofen as below for pericarditis (3) Perinephric abscess: Plan: See above (4) Pericarditis: Plan: Presented to ER on 07/17 with pleuritic chest pain CT angiogram of the chest negative for PE, but did show trace pericardial effusion She was discharged home on colchicine 0.6 mg p.o. twice daily and as needed ibuprofen. She followed up with Dr. Viera of [place] cardiology at which time she was having continued chest pain and her colchicine was increased to 3 times daily dosing. Admitted with severe diarrhea as above secondary to colchicine 3 times daily dosing ECG here initially with some nonspecific inferior and anterior T wave changes which are now improved on repeat ECG Echocardiogram here shows normal biventricular systolic function, no valvular abnormalities, trace posterior and small anterior pericardial effusion, thickening of the visceral pericardium of the anterior apical aspect of the right ventricle, no evidence of cardiac tamponade Was placed on IV Solu-Medrol initially here and has had significant improvement in the chest pain In my discussions with cardiology in the past, it seems that there may be some increased incidence of recurrent pericarditis if corticosteroids are used. First-line treatment would be colchicine and NSAIDs. -Patient agreeable to restarting colchicine at a lower dose at 0.6 mg p.o. twice daily -DC IV Solu-Medrol -Start ibuprofen 600 mg p.o. every 8 hours scheduled for now until pain is gone and then taper down and make it as needed after that -Will need outpatient follow-up with her dulser in [place] after discharge (5) Acute pericardial effusion: Plan: As above (6) Nonsustained ventricular tachycardia: Plan: Had one 5 beat run of V. tach overnight on 07/21 that was asymptomatic Ejection fraction is normal Continue to monitor on telemetry Plan: DVT prophylaxis-encourage ambulation, SCDs Disposition-continued stay on telemetry, but possible discharge to home on Friday if continues to improve Admission and Anticipated Discharge Date Admission Date: July 21, 2021 Subjective Chest pain with deep inspiration is almost completely resolved and she feels much better in that regard. No shortness of breath. Still with some right flank pain especially at the end of her urinary stream. She had 1 bowel movement today that was becoming more formed. Telemetry with normal sinus rhythm, rates 80s to 100s, a single 5 beat run of PVCs Review of Systems Review of Systems: All systems reviewed & are unremarkable except as noted in HPI & below Physical Exam Constitutional: WD/WN, vitals as above Eyes: + anicteric sclerae Neck: trachea midline, no thyromegaly Respiratory: normal respiratory effort, lungs clear to auscultation Cardiovascular: RRR, no murmur, no edema Chest (Breasts): Chest: normal inspection of chest Gastrointestinal (Abdomen): normal bowel sounds, soft, nontender, no hepatosplenomegaly Musculoskeletal: Extremities: extremities normal to inspection; no cyanosis and no clubbing Skin: no rashes, warm and dry Neurologic: moves all extremities and awake; no focal motor deficits Psychiatric: A+Ox3, euthymic affect Lymphatic: no lymphedema Results & Data Results & Data ([facility]) Vital Signs (Past 12 Hours) Vital Signs Temp Pulse Pulse Resp BP Pulse Ox 07/22/21 11:34 36.6 C 83 16 109/73 94 07/22/21 07:39 36.7 C 71 16 102/70 95 07/22/21 03:15 36.4 C L 92 H 94/63 L 94 07/22/21 00:43 91 H Laboratory Results 07/22/21 07/22/21 Range/Units 06:10 06:10 WBC 12.83 H (4.8-10.8) K/uL RBC 4.31 (4.2-5.4) M/uL Hgb 12.2 (12.0-16.0) g/dL Hct 35.7 L (37-47) % MCV 82.8 (80-100) fL MCH 28.3 (25-34) pg MCHC 34.2 (32-36) g/dL RDW Std Deviation 39.7 (36.4-46.3) fL RDW Coeff of Mann 13.1 (11.5-14.5) % Plt Count 443 H (130-400) K/uL MPV 9.9 (7.4-10.4) fL Immature Gran % (Auto) 0.6 % Neut % (Auto) 82.5 % Lymph % (Auto) 12.9 % Jenkins % (Auto) 3.8 % Eos % (Auto) 0.1 % Baso % (Auto) 0.1 % Neut # (Auto) 10.58 H (1.4-6.5) K/uL Lymph # (Auto) 1.66 (1.2-3.4) K/uL Jenkins # (Auto) 0.49 (0.11-0.59) K/uL Eos # (Auto) 0.01 (0-0.5) K/uL Baso # (Auto) 0.01 (0-0.2) K/uL Immature Gran # (Auto) 0.08 H (0.00-0.02) K/uL Sodium 135 L (136-145) mmol/L Potassium 3.9 (3.5-5.1) mmol/L Chloride 103 (98-107) mmol/L Carbon Dioxide 24 (21-32) mmol/L Anion Gap 8.0 (3-11) BUN 6 L (7-18) mg/dl Creatinine 0.69 (0.6-1.2) mg/dl Est Cr Clr Drug Dosing 124.0 ml/min Est GFR ( Amer) 144.2 ml/min Est GFR (Non-Af Amer) 124.4 ml/min BUN/Creatinine Ratio 8.6 L (10-20) Glucose 180 H (70-99) mg/dl Calcium 9.5 (8.5-10.1) mg/dl Magnesium 2.3 (1.8-2.4) mg/dl Total Bilirubin 0.5 (0.2-1) mg/dl AST 12 L (15-37) U/L ALT 29 (12-78) U/L Alkaline Phosphatase 90 (45-117) U/L Total Protein 7.5 (6.4-8.2) gm/dl Albumin 2.8 L (3.4-5.0) gm/dl Globulin 4.7 H (2.5-4.0) gm/dl Albumin/Globulin Ratio 0.6 L (0.9-2) PG Care Time/CCT Total # of Minutes Spent Total Time Spent with Patient: Total time spent is greater than 50% in coordination of care (as documented) at patient's floor/unit and/or counseling patient: Coding Level of Care Code 41735 Subseq Hosp Care Lvl 3 Diagnoses Pyelonephritis of right kidney N12 Perinephric abscess N15.1 Acute pericardial effusion I30.9 Pericarditis I31.9 Chronicity: unspecified Pericarditis type: unspecified type Intractable diarrhea R19.7 Nonsustained ventricular tachycardia I47.2 (1) Pericarditis Chronicity: unspecified Pericarditis type: unspecified type Qualified Code(s): I31.9 - Disease of pericardium, unspecified
[2021-07-22] MEDS ORDERED: LOPERAMIDE HCL 2 MG CAP PO PRN (12:18)
--- NOTE | 2021-07-22 13:11 | XCELERA ---
[id number]
[2021-07-22] MEDS: IBUPROFEN 600 MG TAB PO SCH ×2 (13:21→21:14)
[2021-07-22] MEDS: COLCHICINE 0.6 MG TAB PO SCH ×2 (13:41→19:35)
[2021-07-22] MEDS: TAMSULOSIN HCL 0.4 MG CAP PO SCH (19:34)
[2021-07-23] MEDS: IBUPROFEN 600 MG TAB PO SCH ×2 (04:40→15:18)
[2021-07-23] MEDS: PIPERACILLIN/TAZOBACTAM 4.5 GM in DEXTROSE 5% 100 ML IV SCH ×2 (04:41→09:42)
[2021-07-23 07:14] LABS: Basophils # (auto) 0.01 K/uL (0-0.2); Basophils % (auto) 0.1 %; Eosinophils # (auto) 0.03 K/uL (0-0.5); Eosinophils % (auto) 0.2 %; Hematocrit (blood only) 35.7 % (37-47); Hemoglobin 12.4 g/dL (12.0-16.0); Immature Granulocytes # (auto) 0.16 K/uL (0.00-0.02); Immature Granulocytes % (auto) 1.3 %; Lymphocytes # (auto) 2.76 K/uL (1.2-3.4); Lymphocytes % (auto) 21.7 %; Mean Corpuscular Hemoglobin 28.6 pg (25-34); Mean Corpuscular Hgb Conc 34.7 g/dL (32-36); Mean Corpuscular Volume 82.4 fL (80-100); Mean Platelet Volume 9.8 fL (7.4-10.4); Monocytes # (auto) 0.78 K/uL (0.11-0.59); Monocytes % (auto) 6.1 %; Neutrophils # (auto) 8.96 K/uL (1.4-6.5); Neutrophils % (auto) 70.6 %; Platelet Count 336 K/uL (130-400); RDW Coefficient of Variation 13.4 % (11.5-14.5); RDW Standard Deviation 39.8 fL (36.4-46.3); Red Blood Count 4.33 M/uL (4.2-5.4)
[2021-07-23 07:52] LABS: Albumin Globulin Ratio 0.7 (0.9-2); Bilirubin,Total 0.3 mg/dl (0.2-1); Calcium 9.2 mg/dl (8.5-10.1); Creatinine Clr Calc Pharmacy 98.3 ml/min; Est GFR (African American) 116.8 ml/min; Est GFR (Non-African American) 100.8 ml/min; Globulin 4.4 gm/dl (2.5-4.0); Magnesium 2.4 mg/dl (1.8-2.4); Potassium 3.5 mmol/L (3.5-5.1); Total Protein 7.4 gm/dl (6.4-8.2)
[2021-07-23] MEDS: SACCHAROMYCES BOULARDII 250 MG CAP PO SCH (08:38)
[2021-07-23] MEDS: COLCHICINE 0.6 MG TAB PO SCH (09:41)
[2021-07-23 11:57] VITALS: O2SAT 97
--- NOTE | 2021-07-23 15:27 | Ultrasound Report ---
RENAL ULTRASOUND CLINICAL HISTORY: Right kidney only; assess prior poss abscess COMPARISON STUDY: CT of the abdomen and pelvis July 21, 2021. TECHNIQUE: Sonography of the kidneys and the urinary bladder was performed. FINDINGS: This exam was compromised by suboptimal penetration. Increased hepatic echogenicity represe nts hepatic steatosis. The possible tiny right renal abscess on CT of July 21, 2021 is not visual ized, likely due to technique. There is no hydronephrosis. The right kidney measures 10.8 cm and the left measures 11.8 cm. Right ureteral stent is partially visualized. Specifically, the portion within the bladder is identified. IMPRESSION: 1. No hydronephrosis. Possible tiny right renal abscess on CT of July 21, 2021 not visualized on this exam, likely due to technique. 2. Partially visualized right ureteral stent. ACT 112: Negative or not required by law. Electronically signed by: Austin Vance M.D. 07/23/2021 3:26 PM
[2021-07-23 16:05] VITALS: PULSE 85; TEMP 97.9
[2021-07-23 16:11] VITALS: BP 125/80
--- NOTE | 2021-07-23 16:32 | Discharge Summary ---
Date of Service July 23, 2021 Admission HPI Per Admitting Provider The patient is a 21-year-old female with a past medical history including acute pericardial effusion, pleural effusion, pericarditis, kidney stones, pyelonephritis and urinary tract infection. The patient underwent a cystoscopy with right ureteral stent placement on July 01 without complication. She reports that 2 days later, she developed nausea and vomiting, developed moist later diagnosed as an aspiration pneumonia, and was admitted to [facility] ICU on mechanical ventilator. She was later discharged on Augmentin and Flagyl, and more recently was changed to ciprofloxacin orally. On July 17 the patient was seen at [facility] emergency department due to pleuritic chest pain, underwent a CT scan which was negative for PE, but did show a trace right pleural effusion and trace pericardial effusion. At that time, she was placed on colchicine 0.6 mg twice daily and ibuprofen. She was also started on ciprofloxacin 5 mg p.o. twice daily at that time as well. She reports seeing ca rdiologist Dr. Viera at [facility], where echocardiogram did note pericardial effusion, and she reports that her colchicine was increased from twice daily to 3 times daily. Shortly after starting the 3 times daily dosing, she developed significant diarrhea, which is now on the second day, has become very severe with BMs to frequent to enumerate. For these reasons she presented to [facility] emergency department for further assessment. CT scan of abdomen the pelvis at [facility] ED this evening: Right pyelonephritis with perinephric abscess, right nephroureteral stent. Abnormal laboratories: Magnesium 1.8, albumin 3.0, WBC 10.87, hemoglobin 13.0, hematocrit 30.7, platelets 516. COVID-19 testing in the ED this evening is negative Principal Diagnosis Diarrhea from colchicine Possible small right kidney abscess Pericarditis Discharge Exam Constitutional WD/WN, vitals as above Eyes EOM intact bilaterally; no conjunctival abnormality ENMT external ear and nose normal, oropharynx normal Neck trachea midline, no thyromegaly normal visual inspection Respiratory normal respiratory effort, lungs clear to auscultation no respiratory distress Cardiovascular RRR, no murmur, no edema Gastrointestinal (Abdomen) Inspection/Auscultation: abdomen normal to inspection; abdomen not distended Musculoskeletal no cyanosis or clubbing, extremities motor strength 5/5 Skin no rashes, warm and dry Neurologic moves all extremities and awake Psychiatric Orientation: alert, oriented to person and cooperative Discharge Data Allergies Allergy/AdvReac Type Severity Reaction Status Date / Time No Known Allergies Allergy Verified 07/21/21 01:19 Consultations 07/21/21 05:36 ED Decision to Admit Stat Ordered Studies 07/21/21 01:05 CT abd pelvis IV con only Urgent 07/23/21 14:30 US renal/blad retro comp Routine Hospital Course (1) Intractable diarrhea: Due to colchicine. - Held dosing for some time, then restarted at BID dosing. Had some looser stools, but not intractable. (2) Pyelonephritis of right kidney: Right pyelonephritis/early perinephric abscess/nephroureteral stent. Had right ureteral stent placed for stone on 07/01 at [facility]. Had complicated postoperative course with nausea/vomiting leading to aspiration pneumonia and ventilator dependent respiratory failure. She was then on Augmentin and Flagyl after discharge but seems this was more for the aspiration pneumonia? Seen in the [facility] ER on 07/17 for chest pain related to acute pericarditis but was found to have UTI-started on ciprofloxacin at that time CT abdomen/pelvis on 07/20 does show small right perinephric abscess and evidence of acute pyelonephritis, UA consistent with UTI, and with mild leukocytosis - Repeat kidney u/s on 07/23 did *not* show abscess. - Continue Ciprofloxacin x 5 more day. Will discuss/see her [place] urologist before finishing abx. (3) Perinephric abscess: See above (4) Pericarditis: Presented to ER on 07/17 with pleuritic chest pain. CT angiogram of the chest negative for PE, but did show trace pericardial effusion. She was discharged home on colchicine 0.6 mg p.o. twice daily and as needed ibuprofen. She followed up with Dr. Viera of [place] cardiology at which time she was having continued chest pain and her colchicine was increased to 3 times daily dosing. - TTE on 07/22 showed minimal effusion, no tamponade, but did show visceral pericardium thickening by RV anterior apex. - Started ibuprofen 600 mg p.o. every 8 hours scheduled for now until pain is gone and then taper down and make it as needed after that. Will need 3 weeks of therapy per UTD. - Will need outpatient follow-up with her workforce development assistant in [place] after discharge. - Encouraged her to *not* stop the ibuprofen without approval from her workforce development assistant. (5) Acute pericardial effusion: As above (6) Nonsustained ventricular tachycardia: Had one 5 beat run of V. tach overnight on 07/21 that was asymptomatic. Had small run of SVT on 07/23. Asymptomatic. Ejection fraction is normal Total Time Total Time Spent Total Time Spent (In Minutes): 35 Discharge Plan Discharge Items Patient Disposition: Home - Self-Care Reason For Visit: INTRACTABLE DIARRHEA,R PYELO/ABSCESS/STENT, Discharge Diagnosis: Possible, small abscess on right kidney Pericarditis Condition on Discharge: Good Activity: Resume your previous activity Non-emergency contact: Primary Care Provider, Sorter/Assay Tech and Urologist Call non-emergency contact if: your symptoms worsen Follow-up/Referrals: Darvin Arteaga [Primary Care Provider] - Diet: Regular Addtl Attending Provider Instructions: Ms. Palafox, You were admitted to the hospital with diarrhea from one of your medications. We reduced this medication dose and you are doing better. Please keep taking the colchicine at the reduced dose of twice a day. For your right kidney infection, please see your urology doctor at [place] this week or early next week. Please have them do one more ultrasound of your right kidney before you finish your antibiotics to be sure the abscess is going away. For your heart, please take the ibuprofen 600 mg three times per day for the next week. If you feel well, you can reduce the dose to 400 mg 3 times per day for 1 week, then 200 mg three times a day for 1 week, then finish. Please do this under the guidelines of your workforce development assistant. In the meantime, please continue the colchicine two times per day. You will likely take this medication for at least several months to reduce the chance of recurrence. Last, I did prescribe a stomach-acid blocking medication (pantoprazole) to prevent the ibuprofen from upsetting your stomach. Drink plenty of water while you are on the ibuprofen to avoid dehydration. Pending Studies at Discharge: No Stand-Alone Forms: My [employer], Smoking Cessation Medications and DC Order Prescriptions: New ibuprofen 600 mg Tablet 600 mg PO TID Qty: 21 RF: 0 pantoprazole 20 mg tablet,delayed release (DR/EC) 20 mg PO DAILY 28 Days Qty: 28 RF: 0 Continued oxycodone 5 mg tablet 5 mg PO Q6H PRN (Reason: Pain) RF: 0 ciprofloxacin HCl 500 mg tablet 500 mg PO BID Qty: 20 RF: 0 colchicine 0.6 mg capsule 0.6 mg PO BID Qty: 20 RF: 0 tamsulosin 0.4 mg capsule 0.4 mg PO HS RF: 0 hyoscyamine sulfate 0.125 mg tablet, sublingual 0.125 mg sublingual Q6H PRN (Reason: ABD PAIN) RF: 0 Discontinued phenazopyridine 200 mg tablet 200 mg PO TID PRN (Reason: BLADDER PAIN) RF: 0 Discharge Orders: Discharge Order (Routine); Ordered 07/23/21 Ordered By: Brian Perez Admission Data Admit Date/Time: 07/21/21 05:08 Attending Provider: Brian Perez Admit Provider: Bradley Taylor Primary Care Provider: Darvin Arteaga Other Providers: Brian Perez Other Interventions: Discharge Summary Assessment (RN) Last Done: 07/23/21 16:09 Coding Level of Care Code D/C DAY MANAGEMENT >30 MINS Diagnoses Intractable diarrhea R19.7 Pyelonephritis of right kidney N12 Perinephric abscess N15.1 Pericarditis I31.9 Chronicity: unspecified Pericarditis type: unspecified type Acute pericardial effusion I30.9 Nonsustained ventricular tachycardia I47.2
== END 2021-07-23 17:31 | disposition home or self-care (01) ==
LOC: ED 23:27 → 2S 07-21 05:08 → INTOOBSV 07-21 05:08 → SUATTDRO 07-21 05:08 → 2S 07-21 05:49

== ENCOUNTER 2022-02-13 18:27 | Inpatient (IN) ==
[2022-02-13] MEDS ORDERED: SODIUM CHLORIDE 0.9% 1000ML 1,000 ML IV ONE (19:29)
[2022-02-13] MEDS ORDERED: ONDANSETRON INJ 2 MG/ML 2 ML VIAL IV STA (19:30)
[2022-02-13 19:32] LABS: Albumin Globulin Ratio 1.6 (0.9-2); Albumin Level 4.1 gm/dl (3.4-5.0); BUN Creatinine Ratio 11.6 (10-20); Bilirubin,Total 0.4 mg/dl (0.2-1.0); Calcium 9.2 mg/dl (8.5-10.1); Creatinine Clr Calc Pharmacy 99.9 ml/min; Est GFR (African American) 111.9 ml/min; Est GFR (Non-African American) 96.6 ml/min; Globulin 2.6 gm/dl (2.5-4.0); Potassium 3.7 mmol/L (3.5-5.1); Total Protein 6.7 gm/dl (6.0-8.3)
[2022-02-13 19:35] LABS: Basophils # (auto) 0.02 K/uL (0-0.2); Basophils % (auto) 0.2 %; Eosinophils % (auto) 0.8 %; Hematocrit (blood only) 40.4 % (37-47); Immature Granulocytes # (auto) 0.05 K/uL (0.00-0.02); Immature Granulocytes % (auto) 0.4 %; Lymphocytes # (auto) 1.38 K/uL (1.2-3.4); Lymphocytes % (auto) 10.8 %; Mean Corpuscular Hemoglobin 28.6 pg (25-34); Mean Corpuscular Hgb Conc 34.7 g/dL (32-36); Mean Corpuscular Volume 82.6 fL (80-100); Mean Platelet Volume 10.8 fL (7.4-10.4); Monocytes # (auto) 0.71 K/uL (0.11-0.59); Monocytes % (auto) 5.5 %; Neutrophils # (auto) 10.56 K/uL (1.4-6.5); Neutrophils % (auto) 82.3 %; Platelet Count 263 K/uL (130-400); Red Blood Count 4.89 M/uL (4.2-5.4); White Blood Count 12.82 K/uL (4.8-10.8)
[2022-02-13] MEDS: HYDROmorphone INJ 0.5 MG/0.5 ML SYR IV PRN ×2 (19:36→20:58)
[2022-02-13 19:43] LABS: Appearance Urine Turbid (Clear); Bacteria Urine Automated 4+ (Negative); Bilirubin Urine Negative (Negative); Blood Urine 2+ (Negative); Color Urine Yellow; Epithelial Cell Urine Auto >30 /lpf (0-5); Glucose Urine UA 2+ (Negative); Ketones Urine Trace (Negative); Leukocyte Esterase Urine 3+ (Negative); Nitrite Urine Positive (Negative); Protein Urine 2+ (Negative); RBC Urine Automated >30 /hpf (0-4); Specific Gravity Urine 1.023 (1.000-1.030); Urobilinogen Urine Negative (Negative); WBC Urine Automated >30 /hpf (0-5); pH Urine 5.5 (4.5-7.5)
--- NOTE | 2022-02-13 19:49 | Emergency Department Note ---
Impression & Plan Hydronephrosis with renal and ureteral calculus obstruction, Acute right flank pain, UTI (urinary tract infection) ED Provider Note INFORMANT: Patient ED PROVIDER(S): Christiano Telles MD CHIEF COMPLAINT: Flank pain PLAN: Disposition: Admitted Condition: Guarded Outpatient prescription management: none Referral: None MEDICAL DECISION MAKING: Patient presented because of acute right flank pain. She was quite uncomfortable. An IV was established. She was given Zofran and Dilaudid. She was hydrated. The patient had a leukocytosis on CBC. Chemistry panel was unremarkable. Urinalysis was very concerning for infection. IV Rocephin was ordered. CT imaging reveals an obstructing 6 x 4 mm right ureteral stone. There is hydronephrosis and stranding present. On reassessment the patient did require a second dose of medication for pain. Consultation was made with Dr. Montesinos of urology. He is going to take the patient to the operating room for stent. He agreed to the antibiotics. Consultation was made with Dr. Marin of the hospitalist service. Patient was evaluated in the ER and admitted for further management. She was taken to the operating suite for further int ervention. Triage Nursing notes reviewed and agree them. Vital Signs: reviewed and remarkable for no significant abnormalities Differential diagnosis: Renal colic, UTI, appendicitis, diverticulitis, mesenteric ischemia, aortic pathology, infections, inflammatory bowel disease, PUD, biliary pathology, as well as other pathologies. Diagnostics interpreted by me: ECG: none Cardiac Monitoring: Cardiac monitoring ordered by me: The patient was placed on continuous cardiac monitoring and observed. It revealed a sinus tachycardic rhythm at 106 beats per minute without ectopy or evidence of dysrhythmia. Imaging studies: CT scan as above HPI: The patient is a 21 year old male with past medical history of kidney stone, pyelonephritis, renal abscess, and sepsis who presents to the Emergency Room with complaints of right flank pain. This started this morning and is sharp and persistent. The patient also notes the following associated symptoms, nausea. The patient has tried ibuprofen for relieving factors. Current pain is rated as 6/10. Pt denies LOC, headache, fevers, chills, diaphoresis, visual changes, neck pain, chest pain, breathing difficulties, vomiting, back pain, melena, hematochezia, urinary symptoms, numbness, weakness, lymphadenopathy, rash, or other complaints. ROS: See above HPI for pertinent positives & negatives. A total of 10 systems reviewed and were otherwise negative. PAST MEDICAL HISTORY:See Below , kidney stones, pyelonephritis, aspiration pneumonia PAST SURGICAL HISTORY:See Below, renal stent FAMILY HISTORY:See Below SOCIAL HISTORY:See Below, college student HOME MEDICATIONS:See Below ALLERGIES:See Below VITALS:See Below PHYSICAL EXAMINATION: GENERAL: Awake, alert, uncomfortable-appearing, in no distress HENT: Normocephalic, atraumatic. Oropharynx unremarkable. EYES: Normal conjunctiva. Sclera non-icteric. NECK: Inspection normal. Non-tender. Supple. No nuchal rigidity. FROM. No masses. RESPIRATORY: Clear to auscultation. No wheezes. No rales. Normal respiratory effort. CARDIAC: Tachycardic rate. Normal rhythm. No murmurs. No rubs. Extremities warm and well perfused. Pulses equal. No JVD. GI: Soft, non-distended. No tenderness to palpation. No rebound or guarding. No masses. RECTAL: Deferred. MUSCULOSKELETAL: Atraumatic. Chest examination reveals no tenderness. The back is symmetrical on inspection without obvious abnormality. There is right right flank CVA tenderness to palpation. No joint edema. LOWER EXTREMITIES: Calves are equal size bilaterally and non-tender. No edema. No discoloration. NEURO: Normal sensorium. No sensory or motor deficits noted. SKIN: No rash or jaundice noted. Christiano Telles MD Past Med/Surg History Medical History History of kidney infection History of kidney stones Surgical History History of renal stent Family History Father Kidney stone Other Diabetes Social History Smoking Status: Never smoker Hx Alcohol Use: Yes Hx Substance Use: No Preferred Language: Sammarinese Communication Ability: Effective Home Health Specialist Required: No Beliefs That Will Affect Care: None Current Living Situation: Parent and Significant Other Feels Safe at Home: Yes Assistive Devices: Glasses Allergies Allergies Allergy/AdvReac Type Severity Reaction Status Date / Time No Known Allergies Allergy Verified 02/13/22 19:43 Home Meds Home Medications Medication Instructions Recorded Confirmed ibuprofen 600 mg tablet 600 mg PO TID PRN 02/13/22 02/13/22 sertraline 25 mg tablet 25 mg PO DAILY 02/13/22 02/13/22 Previous Rx's Medication Instructions Recorded colchicine 0.6 mg capsule 0.6 mg PO BID #20 cap 07/17/21 Results & Data (ED) Vital Signs Vital Signs - 24 hr 02/13/22 18:32 02/13/22 19:40 02/13/22 21:29 Temperature 36.9 C Temperature Source Temporal Artery Scan Pulse Rate 130 H Pulse Rate [Left] 106 H 123 H Pulse Rhythm [Left] Regular Regular Respiratory Rate 19 18 18 Respiratory Effort / Characteristics Non-Labored Spontaneous Non-Labored Non-Labored Respiratory Depth Normal Normal Normal Respiratory Pattern Regular Regular Blood Pressure 166/124 H Blood Pressure [Left Arm] 156/103 H 156/103 H Blood Pressure Mean 138 Blood Pressure Mean [Left Arm] 120 120 Blood Pressure Position [Left Arm] Lying Pulse Oximetry 97 97 98 Oxygen Delivery Method Room Air Room Air Room Air Sepsis Recent Fever Within 48 Hours No Sepsis New/Unexplained Change in Mental Status N/A Sepsis Action Taken by Nursing No Action Required Laboratory Data Result diagrams: 02/13/22 18:54 02/13/22 18:54 Lab Results 02/13/22 02/13/22 02/13/22 Range/Units 18:25 18:54 18:54 WBC 12.82 H (4.8-10.8) K/uL RBC 4.89 (4.2-5.4) M/uL Hgb 14.0 (12.0-16.0) g/dL Hct 40.4 (37-47) % MCV 82.6 (80-100) fL MCH 28.6 (25-34) pg MCHC 34.7 (32-36) g/dL RDW Std Deviation 39.0 (36.4-46.3) fL RDW Coeff of Mann 13.0 (11.5-14.5) % Plt Count 263 (130-400) K/uL MPV 10.8 H (7.4-10.4) fL Immature Gran % (Auto) 0.4 % Neut % (Auto) 82.3 % Lymph % (Auto) 10.8 % Starke % (Auto) 5.5 % Eos % (Auto) 0.8 % Baso % (Auto) 0.2 % Neut # (Auto) 10.56 H (1.4-6.5) K/uL Lymph # (Auto) 1.38 (1.2-3.4) K/uL Starke # (Auto) 0.71 H (0.11-0.59) K/uL Eos # (Auto) 0.10 (0-0.5) K/uL Baso # (Auto) 0.02 (0-0.2) K/uL Immature Gran # (Auto) 0.05 H (0.00-0.02) K/uL Sodium 136 (136-145) mmol/L Potassium 3.7 (3.5-5.1) mmol/L Chloride 104 (98-107) mmol/L Carbon Dioxide 23 (21-32) mmol/L Anion Gap 9 (3-11) BUN 10 (6-23) mg/dl Creatinine 0.86 (0.6-1.2) mg/dl Est Cr Clr Drug Dosing 99.9 ml/min Est GFR ( Amer) 111.9 ml/min Est GFR (Non-Af Amer) 96.6 ml/min BUN/Creatinine Ratio 11.6 (10-20) Glucose 160 H (70-99(Fasting)) mg/dl Calcium 9.2 (8.5-10.1) mg/dl Total Bilirubin 0.4 (0.2-1.0) mg/dl AST 23 (13-39) U/L ALT 38 (7-52) U/L Alkaline Phosphatase 86 (34-104) U/L Total Protein 6.7 (6.0-8.3) gm/dl Albumin 4.1 (3.4-5.0) gm/dl Globulin 2.6 (2.5-4.0) gm/dl Albumin/Globulin Ratio 1.6 (0.9-2) Urine Color Yellow Urine Appearance Turbid A (Clear) Urine pH 5.5 (4.5-7.5) Ur Specific [place] 1.023 (1.000-1.030) Urine Protein 2+ H (Negative) Urine Glucose (UA) 2+ H (Negative) Urine Ketones Trace H (Negative) Urine Blood 2+ H (Negative) Urine Nitrite Positive A (Negative) Urine Bilirubin Negative (Negative) Urine Urobilinogen Negative (Negative) Ur Leukocyte Esterase 3+ H (Negative) Urine WBC (Auto) >30 H (0-5) /hpf Urine RBC (Auto) >30 H (0-4) /hpf U Hyaline Cast (Auto) 5-10 H (0-5) /lpf U Epithel Cells (Auto) >30 H (0-5) /lpf Urine Bacteria (Auto) 4+ H (Negative) Urine Test (Negative) SARS-CoV-2, RNA, NAAT (NEGATIVE) 02/13/22 02/13/22 Range/Units 19:49 21:25 WBC (4.8-10.8) K/uL RBC (4.2-5.4) M/uL Hgb (12.0-16.0) g/dL Hct (37-47) % MCV (80-100) fL MCH (25-34) pg MCHC (32-36) g/dL RDW Std Deviation (36.4-46.3) fL RDW Coeff of Mann (11.5-14.5) % Plt Count (130-400) K/uL MPV (7.4-10.4) fL Immature Gran % (Auto) % Neut % (Auto) % Lymph % (Auto) % Starke % (Auto) % Eos % (Auto) % Baso % (Auto) % Neut # (Auto) (1.4-6.5) K/uL Lymph # (Auto) (1.2-3.4) K/uL Starke # (Auto) (0.11-0.59) K/uL Eos # (Auto) (0-0.5) K/uL Baso # (Auto) (0-0.2) K/uL Immature Gran # (Auto) (0.00-0.02) K/uL Sodium (136-145) mmol/L Potassium (3.5-5.1) mmol/L Chloride (98-107) mmol/L Carbon Dioxide (21-32) mmol/L Anion Gap (3-11) BUN (6-23) mg/dl Creatinine (0.6-1.2) mg/dl Est Cr Clr Drug Dosing ml/min Est GFR ( Amer) ml/min Est GFR (Non-Af Amer) ml/min BUN/Creatinine Ratio (10-20) Glucose (70-99(Fasting)) mg/dl Calcium (8.5-10.1) mg/dl Total Bilirubin (0.2-1.0) mg/dl AST (13-39) U/L ALT (7-52) U/L Alkaline Phosphatase (34-104) U/L Total Protein (6.0-8.3) gm/dl Albumin (3.4-5.0) gm/dl Globulin (2.5-4.0) gm/dl Albumin/Globulin Ratio (0.9-2) Urine Color Urine Appearance (Clear) Urine pH (4.5-7.5) Ur Specific [place] (1.000-1.030) Urine Protein (Negative) Urine Glucose (UA) (Negative) Urine Ketones (Negative) Urine Blood (Negative) Urine Nitrite (Negative) Urine Bilirubin (Negative) Urine Urobilinogen (Negative) Ur Leukocyte Esterase (Negative) Urine WBC (Auto) (0-5) /hpf Urine RBC (Auto) (0-4) /hpf U Hyaline Cast (Auto) (0-5) /lpf U Epithel Cells (Auto) (0-5) /lpf Urine Bacteria (Auto) (Negative) Urine Test Negative (Negative) SARS-CoV-2, RNA, NAAT NEGATIVE (NEGATIVE) Administered Medications Fentanyl Citrate (Fentanyl Citrate 100 Mcg/2 Ml Vial) 25 mcg IV Q5M PRN PRN Reason: PACU Use Only-Pain Stop: 02/14/22 07:22 Last Admin: 02/13/22 23:33 Dose: 25 mcg Documented by: [id number] Lactated Ringer's (Lr) 1,000 mls @ 125 mls/hr IV .Q8H TRES Stop: 02/14/22 16:21 Last Admin: 02/14/22 01:02 Dose: 125 mls/hr Documented by: [id number] Discontinued Medications Acetaminophen (Acetaminophen 325 Mg Tab) Confirm Administered Dose 650 mg .ROUTE .STK-MED ONE Stop: 02/13/22 23:53 Last Admin: 02/13/22 23:56 Dose: 650 mg Documented by: [id number] Acetaminophen (Acetaminophen 325 Mg Tab) 650 mg PO NOW STA Stop: 02/14/22 00:06 Last Admin: 02/14/22 01:02 Dose: Not Given Documented by: [id number] Fentanyl Citrate (Fentanyl Citrate 100 Mcg/2 Ml Vial) Confirm Administered Dose 100 mcg .ROUTE .STK-MED ONE Stop: 02/13/22 23:33 Last Admin: 02/13/22 23:51 Dose: Not Given Documented by: [id number] Hydromorphone HCl (Hydromorphone Inj 0.5 Mg/0.5 Ml Syr) 0.5 mg IV Q15M PRN PRN Reason: Pain Stop: 02/27/22 19:28 Last Admin: 02/13/22 20:58 Dose: 0.5 mg Documented by: [id number] Admin: 02/13/22 19:36 Dose: 0.5 mg Documented by: [id number] Sodium Chloride (Nss 1000ml) 1,000 mls @ 999 mls/hr IV .Q1H1M ONE Stop: 02/13/22 20:29 Last Infusion: 02/13/22 20:41 Dose: 0 mls/hr Documented by: [id number] Admin: 02/13/22 19:36 Dose: 999 mls/hr Documented by: [id number] Ceftriaxone Sodium (Rocephin) 2,000 mg in 70 mls @ 140 mls/hr IV NOW STA Stop: 02/13/22 21:34 Last Admin: 02/13/22 21:29 Dose: 140 mls/hr Documented by: [id number] Ondansetron HCl (Ondansetron Inj 2 Mg/Ml 2 Ml Vial) 4 mg IV NOW STA Stop: 02/13/22 19:31 Last Admin: 02/13/22 19:38 Dose: 4 mg Documented by: [id number] Imaging Data Radiologist's Impression: Abdomen/Pelvis CT 02/13/22 19:29 CT OF THE ABDOMEN AND PELVIS WITHOUT CONTRAST CLINICAL HISTORY: Right flank pain. COMPARISON STUDY: Renal ultrasound September 07, 2021. CT of the abdomen and pelvis July 21, 2021. TECHNIQUE: Axial images of the abdomen and pelvis were obtained without IV contrast. Images were reviewed in the axial, sagittal, and coronal planes. Automated exposure control was utilized for the study. A dose lowering technique was utilized adhering to the principles of ALARA. FINDINGS: Lung bases are unremarkable. A 6 mm x 4 mm right ureteropelvic junction calculus results in moderate right hydronephrosis with perinephric and periureteral stranding. Punctate left renal calculus is present. No left hydronephrosis is noted. There is hepatic steatosis. Borderline splenomegaly is noted. Unenhanced images of the adrenal glands and pancreas are unremarkable. There is no biliary or pancreatic ductal dilatation. The appendix is unremarkable. There is no evidence for a bowel obstruction. The ovaries are not enlarged. There is no lymphadenopathy. No acute fracture or suspicious lesion within the visualized skeletal structures is present. IMPRESSION: 1. 6 mm x 4 mm right ureteropelvic junction calculus which results in moderate right hydronephrosis with perinephric and periureteral stranding. 2. Punctate left renal calculus. 3. Hepatic steatosis. ACT 112: Negative or not required by law. Electronically signed by: Austin Vance M.D. 02/13/2022 8:27 PM Discharge Plan Visit Data Chief Complaint: Urinary Symptoms Stated Complaint: PAIN IN R SIDE BACK, POSSIBLE KIDNEY STONE ED Provider: Christiano Telles Discharge Problem: Hydronephrosis with renal and ureteral calculus obstruction, Acute right flank pain, UTI (urinary tract infection) Patient Disposition: Admitted As Inpatient Discharge Instructions Interventions: ED Discharge Assessment Last Done: 02/13/22 22:15
[2022-02-13 19:53] LABS: Pregnancy Test, Urine Negative (Negative)
--- NOTE | 2022-02-13 20:29 | CT Scan Report ---
CT OF THE ABDOMEN AND PELVIS WITHOUT CONTRAST CLINICAL HISTORY: Right flank pain. COMPARISON STUDY: Renal ultrasound September 07, 2021. CT of the abdomen and pelvis July 21, 2021. TECHNIQUE: Axial images of the abdomen and pelvis were obtained without IV contrast. Images were revi ewed in the axial, sagittal, and coronal planes. Automated exposure control was utilized for the hcarles dy. A dose lowering technique was utilized adhering to the principles of ALARA. FINDINGS: Lung bases are unremarkable. A 6 mm x 4 mm right ureteropelvic junction calculus results in moderate right hydronephrosis with perinephric and periureteral stranding. Punctate left renal calcu buck is present. No left hydronephrosis is noted. There is hepatic steatosis. Borderline splenomegaly is noted. Unenhanced images of the adrenal glands and pancreas are unremarkable. There is no biliary or pancreatic ductal dilatation. The appendix is unremarkable. There is no evidence for a bowel obstr uction. The ovaries are not enlarged. There is no lymphadenopathy. No acute fracture or suspicious le lukasz within the visualized skeletal structures is present. IMPRESSION: 1. 6 mm x 4 mm right ureteropelvic junction calculus which results in moderate right hydronephrosis w ith perinephric and periureteral stranding. 2. Punctate left renal calculus. 3. Hepatic steatosis. ACT 112: Negative or not required by law. Electronically signed by: Austin Vance M.D. 02/13/2022 8:27 PM
[2022-02-13] MEDS ORDERED: cefTRIAXone SODIUM 2,000 MG/70 ML BAG IV STA (21:05)
--- NOTE | 2022-02-13 21:30 | Anesthesiology Consultation ---
Date of Service February 13, 2022 Assessment & Plan (1) Encounter for pre-operative examination: Chart Review Chart Review: Acceptable Risk for Surgery and Patient NOT seen in Pre Admission Testing Consults Requested none History Surgery Operation Date: 02/13/22 22:15 Proposed Procedures p Right Ureteral Stent Insertion(Right) - Jacinto Montesinos MD Height/Weight Height: 5 ft Weight: 84.6 kg Allergies Allergy/AdvReac Type Severity Reaction Status Date / Time No Known Allergies Allergy Verified 02/13/22 19:43 Medications Home Medications Medication Instructions Recorded Confirmed Last Taken colchicine 0.6 mg capsule 0.6 mg PO BID #20 cap 07/17/21 02/13/22 07/20/21 ibuprofen 600 mg tablet 600 mg PO TID PRN 02/13/22 02/13/22 Unknown sertraline 25 mg tablet 25 mg PO DAILY 02/13/22 02/13/22 Unknown Active Medications Generic Name Dose Route Start Last Admin Trade Name Freq PRN Reason Stop Dose Admin Hydromorphone HCl 0.5 mg 02/13/22 19:29 02/13/22 20:58 Hydromorphone Inj 0.5 Mg/0.5 Ml Syr IV 02/27/22 19:28 0.5 mg Q15M PRN Administration Pain Ceftriaxone Sodium 2,000 mg in 70 mls @ 140 mls/hr 02/13/22 21:05 02/13/22 21:29 Rocephin IV 02/13/22 21:34 140 mls/hr NOW STA Administration Past Medical History Medical History History of kidney infection History of kidney stones Past Family History Family History Father Kidney stone Social History Smoking Status: Never smoker Hx Alcohol Use: No Hx Substance Use: No Physical Exam Vital Signs Last Vital Signs Temp 98.4 F 02/13/22 18:32 Pulse 106 H 02/13/22 19:40 Resp 18 02/13/22 19:40 BP 156/103 H 02/13/22 19:40 Pulse Ox 97 02/13/22 19:40 Testing Laboratory Results 02/13/22 18:54 02/13/22 18:54 Urine Color Yellow 02/13/22 18:25 Urine Appearance Turbid (Clear) A 02/13/22 18:25 Urine pH 5.5 (4.5-7.5) 02/13/22 18:25 Ur Specific [place] 1.023 (1.000-1.030) 02/13/22 18:25 Urine Protein 2+ (Negative) H 02/13/22 18:25 Urine Glucose (UA) 2+ (Negative) H 02/13/22 18:25 Urine Ketones Trace (Negative) H 02/13/22 18:25 Urine Nitrite Positive (Negative) A 02/13/22 18:25 Ur Leukocyte Esterase 3+ (Negative) H 02/13/22 18:25 Urine WBC (Auto) >30 /hpf (0-5) H 02/13/22 18:25 Urine RBC (Auto) >30 /hpf (0-4) H 02/13/22 18:25 U Hyaline Cast (Auto) 5-10 /lpf (0-5) H 02/13/22 18:25 U Epithel Cells (Auto) >30 /lpf (0-5) H 02/13/22 18:25 Urine Bacteria (Auto) 4+ (Negative) H 02/13/22 18:25 Urine Test Negative (Negative) 02/13/22 19:49 02/13/22 02/13/22 19:49 18:25 Urine Test Negative POC Ur Test Pending
--- NOTE | 2022-02-13 21:35 | History & Physical Report ---
Date of Service February 13, 2022 Assessment & Plan (1) Right kidney stone: Plan: 21yo female with history of prior renal stone s/p cystoscopy with stent placement, history of pyelonephritis and possible renal abscess presenting with acute right flank pain which began this AM at 05:00. SIRS 2/4 with urinary source of infection. Patient tachycardic on arrival. Labs significant for neutrophil predominant leukocytosis, UA suggestive of infection with 4+ bacteria present. CT of the abdomen with a 6mm x 4mm right ureteropelvic junction calculus with moderate right hydronephrosis and perinephric and periureteral stranding. Plan for OR presently. -Admit to PCU -Continue Ceftriaxone 2gm IV daily -Follow cultures -Pain control with Dilaudid PRN -Nausea control with Zofran PRN -LR at 125mL/hr x 2L -Appreciate Urology assistance (2) History of pericarditis: Plan: Patient with history of pericarditis. She follows with Dr. Viera from Cardiology. She reports she is still taking Colchicine daily but is no longer taking the Ibuprofen. -Continue Colchicine 0.6mg po daily (3) UTI (urinary tract infection): Plan: In setting of renal stone. Sepsis on presentation with SIRS 2/4, urinary source. Patient afebrile, tachycardic with elevated WBC count. Blood pressure stable, nontoxic in appearance. -Urology intervention appreciated -Follow cultures -Ceftriaxone 2gm IV daily (4) Depression: Plan: Chronic. Well controlled with Sertraline. Patient anxious about her current illness in setting of her prior history of severe illness. Reassurrance offered -Continue Sertraline Plan: F/E/N - LR at 125mL/hr x 2 liters, electrolytes WNL, NPO for now Ppx - Low risk for DVT Code -Full Dispo - to OR then PCU admission planned History of Present Illness Chief Complaint: infected right renal stone Primary Care Provider: Darvin Arteaga Charity Palafox is a pleasant 21yo female presenting with right flank pain. Patient developed severe right flank pain and lower abdominal pain with nausea this morning around 05:00. She denies fever, chills, chest pain, cough, SOB. She has had normal UOP with no dysuria. Normal bowel movement. Last meal this evening at 15:00 - hamburger and angolan fries. Patient tachycardic on arrival with leukocytosis WBC=12.82. Found to have a 4mm x 6mm right ureteropelvic junction calculus with moderate right hydronephrosis with perinephric and periureteral stranding. Urology consulted and plan for OR this evening. Of note, patient with history of right sided nephrolithiasis in June 2021. She had cystoscopy with placement of right ureteral stent. Two days following her procedure she developed nausea and vomiting with aspiration resulting in acute hypoxic respiratory failure requiring intubation and mechanical ventilation for 2 days at [facility]. She was ultimately discharged home in stable condition to complete a course of antibiotics. Several weeks later she was seen in the ER after developing pleuritic chest pain and found to have trace right pleural effusion and pericardial effusion. She was started on Colchicine and NSAIDS for management of pericarditis. She was admitted to [facility] on 07/21/21 after developing significant diarrhea secondary to Colchicine use. She was also found to have right sided pyelonephritis with perinephric abscess and presence of right nephroureteral stent. She was evaluated by Urology and instructed to followup with her Urology team at [place] for stent removal. Repeat renal ultrasound prior to discharge did not reveal renal abscess. She was ultimately discharged home to complete a course of Ciprofloxacin ER Course: Ceftriaxone 2gm, Zofran 4mg, Dilaudid 0.5mg x 2 doses, NSS x 1 liter Allergies Allergy/AdvReac Type Severity Reaction Status Date / Time No Known Allergies Allergy Verified 02/13/22 19:43 Home Medications Medication Instructions Recorded Confirmed Type colchicine 0.6 mg capsule 0.6 mg PO BID #20 cap 07/17/21 02/13/22 Rx ibuprofen 600 mg tablet 600 mg PO TID PRN 02/13/22 02/13/22 History sertraline 25 mg tablet 25 mg PO DAILY 02/13/22 02/13/22 History Past Med/Surg History Medical History History of kidney infection History of kidney stones Surgical History History of renal stent Family History Father Kidney stone Other Diabetes Social History Smoking Status: Never smoker Hx Alcohol Use: No Hx Substance Use: No Preferred Language: Yakut Communication Ability: Effective Automotive Porter Required: No Beliefs That Will Affect Care: None Feels Safe at Home: Yes Assistive Devices: None Review of Systems Review of Systems: All systems reviewed & are unremarkable except as noted in HPI & below Physical Exam Physical Exam: General: patient mildly uncomfortable, tearful and anxious in appearance, NAD, non-toxic Skin: warm, dry, intact, no rashes or lesions HEENT: NC/AT, PERRL, EOMI, anicteric sclera, conjunctiva without injection, external ear normal to inspection and nontender, nares patent, moist mucus membranes, dentition intact, no oropharyngeal lesions, neck supple, trachea midline, no LAD, no thyromegaly, no JVD Heart: +S1/S2, regular, tachycardic, no m/r/g Lungs: equal air entry bilaterally, no rales/rhonchi/wheezes Abd: +BS, soft, ND, mild tenderness in RLQ without rebound/guarding, no masses/organomegaly/ascites Ext: warm, 2+ pulses in UE/LE bilaterally, no clubbing/cyanosis or edema Neuro: nonfocal, patient AA&O x 4, speech intact, no facial droop, moving all extremities on command with equal strength 5/5 Results & Data Results & Data ([facility]) Vital Signs (Past 12 Hours) Vital Signs Temp Pulse Pulse Resp BP BP Pulse Ox 02/13/22 21:29 123 H 18 156/103 H 98 02/13/22 19:40 106 H 18 156/103 H 97 02/13/22 18:32 36.9 C 130 H 19 166/124 H 97 Laboratory Results Laboratory Results WBC 12.82 K/uL (4.8-10.8) H 02/13/22 18:54 RBC 4.89 M/uL (4.2-5.4) 02/13/22 18:54 Hgb 14.0 g/dL (12.0-16.0) 02/13/22 18:54 Hct 40.4 % (37-47) 02/13/22 18:54 MCV 82.6 fL (80-100) 02/13/22 18:54 MCH 28.6 pg (25-34) 02/13/22 18:54 MCHC 34.7 g/dL (32-36) 02/13/22 18:54 RDW Std Deviation 39.0 fL (36.4-46.3) 02/13/22 18:54 RDW Coeff of Mann 13.0 % (11.5-14.5) 02/13/22 18:54 Plt Count 263 K/uL (130-400) 02/13/22 18:54 MPV 10.8 fL (7.4-10.4) H 02/13/22 18:54 Immature Gran % (Auto) 0.4 % 02/13/22 18:54 Neut % (Auto) 82.3 % 02/13/22 18:54 Lymph % (Auto) 10.8 % 02/13/22 18:54 Cross % (Auto) 5.5 % 02/13/22 18:54 Eos % (Auto) 0.8 % 02/13/22 18:54 Baso % (Auto) 0.2 % 02/13/22 18:54 Neut # (Auto) 10.56 K/uL (1.4-6.5) H 02/13/22 18:54 Lymph # (Auto) 1.38 K/uL (1.2-3.4) 02/13/22 18:54 Cross # (Auto) 0.71 K/uL (0.11-0.59) H 02/13/22 18:54 Eos # (Auto) 0.10 K/uL (0-0.5) 02/13/22 18:54 Baso # (Auto) 0.02 K/uL (0-0.2) 02/13/22 18:54 Immature Gran # (Auto) 0.05 K/uL (0.00-0.02) H 02/13/22 18:54 Sodium 136 mmol/L (136-145) 02/13/22 18:54 Potassium 3.7 mmol/L (3.5-5.1) 02/13/22 18:54 Chloride 104 mmol/L (98-107) 02/13/22 18:54 Carbon Dioxide 23 mmol/L (21-32) 02/13/22 18:54 Anion Gap 9 (3-11) 02/13/22 18:54 BUN 10 mg/dl (6-23) 02/13/22 18:54 Creatinine 0.86 mg/dl (0.6-1.2) 02/13/22 18:54 Est Cr Clr Drug Dosing 99.9 ml/min 02/13/22 18:54 Est GFR ( Amer) 111.9 ml/min 02/13/22 18:54 Est GFR (Non-Af Amer) 96.6 ml/min 02/13/22 18:54 BUN/Creatinine Ratio 11.6 (10-20) 02/13/22 18:54 Glucose 160 mg/dl (70-99(Fasting)) H 02/13/22 18:54 Calcium 9.2 mg/dl (8.5-10.1) 02/13/22 18:54 Total Bilirubin 0.4 mg/dl (0.2-1.0) 02/13/22 18:54 AST 23 U/L (13-39) 02/13/22 18:54 ALT 38 U/L (7-52) 02/13/22 18:54 Alkaline Phosphatase 86 U/L (34-104) 02/13/22 18:54 Total Protein 6.7 gm/dl (6.0-8.3) 02/13/22 18:54 Albumin 4.1 gm/dl (3.4-5.0) 02/13/22 18:54 Globulin 2.6 gm/dl (2.5-4.0) 02/13/22 18:54 Albumin/Globulin Ratio 1.6 (0.9-2) 02/13/22 18:54 Urine Color Yellow 02/13/22 18:25 Urine Appearance Turbid (Clear) A 02/13/22 18:25 Urine pH 5.5 (4.5-7.5) 02/13/22 18:25 Ur Specific [place] 1.023 (1.000-1.030) 02/13/22 18:25 Urine Protein 2+ (Negative) H 02/13/22 18:25 Urine Glucose (UA) 2+ (Negative) H 02/13/22 18:25 Urine Ketones Trace (Negative) H 02/13/22 18:25 Urine Blood 2+ (Negative) H 02/13/22 18:25 Urine Nitrite Positive (Negative) A 02/13/22 18:25 Urine Bilirubin Negative (Negative) 02/13/22 18:25 Urine Urobilinogen Negative (Negative) 02/13/22 18:25 Ur Leukocyte Esterase 3+ (Negative) H 02/13/22 18:25 Urine WBC (Auto) >30 /hpf (0-5) H 02/13/22 18:25 Urine RBC (Auto) >30 /hpf (0-4) H 02/13/22 18:25 U Hyaline Cast (Auto) 5-10 /lpf (0-5) H 02/13/22 18:25 U Epithel Cells (Auto) >30 /lpf (0-5) H 02/13/22 18:25 Urine Bacteria (Auto) 4+ (Negative) H 02/13/22 18:25 Urine Test Negative (Negative) 02/13/22 19:49 SARS-CoV-2, RNA, NAAT NEGATIVE (NEGATIVE) 02/13/22 21:25 Impressions Abdomen/Pelvis CT 02/13/22 19:29 CT OF THE ABDOMEN AND PELVIS WITHOUT CONTRAST CLINICAL HISTORY: Right flank pain. COMPARISON STUDY: Renal ultrasound September 07, 2021. CT of the abdomen and pelvis July 21, 2021. TECHNIQUE: Axial images of the abdomen and pelvis were obtained without IV contrast. Images were reviewed in the axial, sagittal, and coronal planes. Automated exposure control was utilized for the study. A dose lowering technique was utilized adhering to the principles of ALARA. FINDINGS: Lung bases are unremarkable. A 6 mm x 4 mm right ureteropelvic junction calculus results in moderate right hydronephrosis with perinephric and periureteral stranding. Punctate left renal calculus is present. No left hydronephrosis is noted. There is hepatic steatosis. Borderline splenomegaly is noted. Unenhanced images of the adrenal glands and pancreas are unremarkable. There is no biliary or pancreatic ductal dilatation. The appendix is unremarkable. There is no evidence for a bowel obstruction. The ovaries are not enlarged. There is no lymphadenopathy. No acute fracture or suspicious lesion within the visualized skeletal structures is present. IMPRESSION: 1. 6 mm x 4 mm right ureteropelvic junction calculus which results in moderate right hydronephrosis with perinephric and periureteral stranding. 2. Punctate left renal calculus. 3. Hepatic steatosis. ACT 112: Negative or not required by law. Electronically signed by: Austin Vance M.D. 02/13/2022 8:27 PM PG Care Time/CCT Total # of Minutes Spent Total Time Spent with Patient: Total time spent is greater than 50% in coordination of care (as documented) at patient's floor/unit and/or counseling patient: Coding Level of Care Code 59305 Initial Inpt Care Lvl 2 Diagnoses History of pericarditis Z86.79 UTI (urinary tract infection) N39.0 Right kidney stone N20.0 Depression F32.A
--- NOTE | 2022-02-13 21:58 | Urology Consultation ---
Date of Consultation February 13, 2022 Assessment & Plan (1) Right kidney stone: Obstructing right ureteral stone with suspected sepsis Empiric ceftriaxone and fluid resuscitation in the ER Plan for immediate operating room evaluation now for cystoscopy and right ureteral stent placement Admission for continued supportive care Previously had a similar episode which unfortunately became extremely complex because of the addition of aspiration pneumonia to an underlying urosepsis from a stone We hope to avoid a similar outcome during this hospitalization She has previously followed with urology in [place] Risks, benefits, and expectations reviewed - consent on the chart History of Present Illness History of Present Illness 21-year-old female presents to the emergency room with suspected sepsis and a kidney stone Tachycardic to the 140s on arrival, hypertensivecurrently 156/100 Afebrile at present UA possibly contaminated but nitrite positive She also has a history of a prior septic stone The prior event did not happen in our facility but she became nauseated and vomited, aspirating so in addition to urinary sources of sepsis she also developed aspiration pneumonia She had a very complex course and gradual recovery from that hospitalization She began to feel symptoms of a kidney stone again earlier today and her symptoms accelerated relatively quickly and given her history she elected to come to the emergency room She does have leukocytosis in addition to the aforementioned hemodynamic parameters CT on arrival shows an obstructing right UPJ calculus as well as another left renal stone which is not causing any obstruction There is stranding around the right kidney consistent with inflammation Allergies Allergy/AdvReac Type Severity Reaction Status Date / Time No Known Allergies Allergy Verified 02/13/22 19:43 Home Medications Medication Instructions Recorded Confirmed Type colchicine 0.6 mg capsule 0.6 mg PO BID #20 cap 07/17/21 02/13/22 Rx ibuprofen 600 mg tablet 600 mg PO TID PRN 02/13/22 02/13/22 History sertraline 25 mg tablet 25 mg PO DAILY 02/13/22 02/13/22 History Patient History Medical History History of kidney infection History of kidney stones Surgical History History of renal stent Family History Father Kidney stone Other Diabetes Social History Smoking Status: Never smoker Hx Alcohol Use: No Hx Substance Use: No Preferred Language: Kyrgyz Communication Ability: Effective Assistant Oceanographer Required: No Beliefs That Will Affect Care: None Feels Safe at Home: Yes Assistive Devices: None Review of Systems Constitutional: + fever, + chills and + sweats Eyes: no worsening vision Ear, Nose, Mouth, Throat: no facial pain and no pain with swallowing Respiratory: no cough and no dyspnea Cardiovascular: no chest pain and no palpitations Gastrointestinal: + abdominal pain and + nausea; no vomiting Genitourinary: no dysuria, no difficulty urinating, no urinary frequency and no hematuria Musculoskeletal: no back pain Integumentary: no rash and no urticaria Neurologic: no gait abnormality and no unsteadiness Psychiatric: no behavioral changes and no depression Endocrine: no fatigue Physical Exam Physical Exam: Uncomfortable appearing Tachycardic Constitutional: well developed and well nourished Neck: neck nontender Respiratory: normal respiratory effort; no respiratory distress and does not use accessory muscles Cardiovascular: Rate/Rhythm: + tachycardic Vessels: radial pulses present Extremities: no edema Gastrointestinal (Abdomen): Inspection/Auscultation: abdomen normal to inspection (Tender on the right) Percussion/Palpation: abdomen soft; abdomen nontender and no guarding Musculoskeletal: Head/Neck/Chest: normocephalic and head atraumatic Extremities: extremities normal to inspection Skin: no rashes and no lesions Trauma: no evidence of skin trauma Neurologic: awake; not obtunded Speech / Cognition: normal speech Motor/Sensory: no tremor Psychiatric: Orientation: alert and oriented x 3 Lymphatic: no lymphadenopathy Results & Data ([facility]) Vital Signs (Past 12 Hours) Vital Signs Temp Pulse Pulse Resp BP BP Pulse Ox 02/13/22 21:29 123 H 18 156/103 H 98 02/13/22 19:40 106 H 18 156/103 H 97 02/13/22 18:32 36.9 C 130 H 19 166/124 H 97 PG Care Time/CCT Total # of Minutes Spent Total Time Spent with Patient: Total time spent is greater than 50% in coordination of care (as documented) at patient's floor/unit and/or counseling patient: Coding Level of Care Code 27002 Inpt Consult Level 5 Diagnoses Right kidney stone N20.0
[2022-02-13] MEDS ORDERED: fentaNYL citrate 100 MCG/2 ML VIAL ONE ×2 (22:42→23:32)
[2022-02-13] MEDS ORDERED: PROPOFOL IV EMULSION 10 MG/ML 20 ML VIAL IV ONE (22:42)
[2022-02-13] MEDS ORDERED: SUCCINYLCHOLINE 100MG/5ML SYR IV ONE (22:42)
--- NOTE | 2022-02-13 23:14 | Operative Report ---
PG Post Operative Report Pre & Post Diagnosis Operation Date: 02/13/22 22:15 Pre-Op Diagnosis: Obstructing right ureteral stone with suspected sepsis Post-Op Diagnosis: Obstructing right ureteral stone with suspected sepsis I identified the patient and participated in the time-out.: Yes Procedure Operation Date: 02/13/22 22:15 Actual Procedures p Cystoscopy and Right Ureteral Stent Insertion(Right) - Jacinto Montesinos MD Surgeon Jacinto Montesinos MD Calender Wind Up Tender none Estimated Blood Loss 0 Findings Consistent with Post-Op Diagnosis Specimens none Description of Procedure The patient was identified in the preoperative holding area, appropriate informed consents were reviewed and completed and the patient was transferred to the operative suite. Upon arrival, appropriate antibiotics and anesthesia were administered and the patient was placed in dorsal lithotomy position and prepped and draped in sterile fashion. To be in the case a 22 Afghan cystoscope was passed per urethra. Inspection revealed some mild irritation and some cloudy urine. Ureteral orifices were in orthotopic position and the right UO was cannulated with a sensor wire which advanced the kidney without difficulty. And then placed a 6 x 24 cm stent over the wire seeing a good curl in the kidney as well as the bladder. There was return of cloudy urine through and around the stent. She was subsequently extubated and taken to the PACU in stable condition. There were no complications. I attest to the content of the Intraoperative Record and any orders documented therein. Any exceptions are noted below.
[2022-02-13] MEDS ORDERED: fentaNYL citrate 100 MCG/2 ML VIAL IV PRN (23:22)
[2022-02-13] MEDS ORDERED: ATROPINE SULFATE 0.1 MG/ML 10ML SYR IV PRN (23:22)
[2022-02-13] MEDS ORDERED: ePHEDrine sulfate 50 MG/ML AMP IV PRN (23:22)
[2022-02-13] MEDS ORDERED: ONDANSETRON INJ 2 MG/ML 2 ML VIAL IV PRN (23:22)
[2022-02-13] MEDS ORDERED: ONDANSETRON INJ 2 MG/ML 2 ML VIAL ONE (23:28)
[2022-02-13] MEDS ORDERED: ACETAMINOPHEN 325 MG TAB ONE (23:52)
[2022-02-14] MEDS ORDERED: ACETAMINOPHEN 325 MG TAB PO STA (00:05)
--- NOTE | 2022-02-14 00:05 | Anesthesiology Progress Note ---
Date of Service February 14, 2022 Anesthesia Post Procedure Vital Signs Vital Signs: Temp Pulse Pulse Pulse Resp BP BP 02/13/22 23:50 102.9 F H 121 H 18 166/105 H 02/13/22 23:40 111 H 24 149/105 H 02/13/22 23:30 109 H 16 127/96 02/13/22 23:20 98.1 F 131 H 31 H 132/104 H 02/13/22 21:29 123 H 18 156/103 H 02/13/22 19:40 106 H 18 156/103 H 02/13/22 18:32 98.4 F 130 H 19 166/124 H Pulse Ox 02/13/22 23:50 95 02/13/22 23:40 97 02/13/22 23:30 94 02/13/22 23:20 94 02/13/22 21:29 98 02/13/22 19:40 97 02/13/22 18:32 97 Pain Intensity Right Flank: Pain Intensity: 3 Transfer of Care Handoff Completed per policy Notes Mental Status: alert / awake / arousable and participated in evaluation Patient Amnestic to Procedure: Yes Nausea / Vomiting: adequately controlled Pain: adequately controlled Airway Patency, RR, SpO2: stable & adequate BP & HR: stable & adequate (tachycardic preop, continues postoperatively, likely infectious related) Hydration State: stable & adequate Anesthetic Complications: no major complications apparent and Pt Satisfied with anesthetic care
[2022-02-14] MEDS ORDERED: ONDANSETRON INJ 2 MG/ML 2 ML VIAL IV PRN (00:22)
[2022-02-14] MEDS ORDERED: DOCUSATE SODIUM 100 MG CAP PO PRN (00:22)
[2022-02-14] MEDS ORDERED: ACETAMINOPHEN 325 MG TAB PO PRN (00:22)
[2022-02-14] MEDS: LACTATED RINGER'S 1,000 ML IV SCH ×4 (01:02→21:57)
[2022-02-14] MEDS: HYDROmorphone INJ 1 MG/ML SYRINGE IV PRN ×4 (03:16→16:30)
[2022-02-14 05:48] LABS: Hemoglobin 15.2 g/dL (12.0-16.0); Lymphocytes % (auto) 6.6 %; Mean Corpuscular Hemoglobin 29.1 pg (25-34); Mean Corpuscular Hgb Conc 34.5 g/dL (32-36); Mean Corpuscular Volume 84.1 fL (80-100); Mean Platelet Volume 10.6 fL (7.4-10.4); Neutrophils % (auto) 84.7 %; Platelet Count 247 K/uL (130-400); RDW Coefficient of Variation 13.1 % (11.5-14.5); RDW Standard Deviation 39.8 fL (36.4-46.3); Red Blood Count 5.23 M/uL (4.2-5.4); White Blood Count 14.11 K/uL (4.8-10.8)
[2022-02-14 05:49] LABS: Basophils # (auto) 0.01 K/uL (0-0.2); Basophils % (auto) 0.1 %; Eosinophils # (auto) 0.01 K/uL (0-0.5); Eosinophils % (auto) 0.1 %; Immature Granulocytes # (auto) 0.04 K/uL (0.00-0.02); Immature Granulocytes % (auto) 0.3 %; Lymphocytes # (auto) 0.93 K/uL (1.2-3.4); Monocytes # (auto) 1.16 K/uL (0.11-0.59); Monocytes % (auto) 8.2 %; Neutrophils # (auto) 11.96 K/uL (1.4-6.5)
[2022-02-14 06:04] LABS: BUN Creatinine Ratio 11.3 (10-20); Calcium 8.9 mg/dl (8.5-10.1); Creatinine Clr Calc Pharmacy 121.4 ml/min; Est GFR (African American) 141.1 ml/min; Est GFR (Non-African American) 121.8 ml/min; Potassium 3.8 mmol/L (3.5-5.1)
[2022-02-14] MEDS: SERTRALINE HCL 50 MG TABLET PO SCH (07:19)
[2022-02-14] MEDS: COLCHICINE 0.6 MG TAB PO SCH (07:19)
--- NOTE | 2022-02-14 07:23 | Hospitalist Progress Note ---
Date of Service February 14, 2022 Assessment & Plan Admission and Anticipated Discharge Date Admission Date: February 13, 2022 Results & Data Results & Data ([facility]) Vital Signs (Past 12 Hours) Vital Signs Temp Pulse Pulse Pulse Resp BP Pulse Ox 02/14/22 07:14 38.2 C H 123 H 18 154/90 H 95 02/14/22 03:00 37.0 C 121 H 18 141/101 H 98 02/14/22 02:14 127 H 02/14/22 01:53 37.4 C 119 H 18 140/117 H 98 02/14/22 00:22 37.4 C 119 H 18 140/117 H 98 02/13/22 23:50 39.4 C H 121 H 18 166/105 H 95 02/13/22 23:40 111 H 24 149/105 H 97 02/13/22 23:30 109 H 16 127/96 94 02/13/22 23:20 36.7 C 131 H 31 H 132/104 H 94 02/13/22 21:29 123 H 18 156/103 H 98 02/13/22 19:40 106 H 18 156/103 H 97
--- NOTE | 2022-02-14 08:57 | Fluoroscopy Report ---
INTRAOPERATIVE RADIOGRAPHS CLINICAL HISTORY: Right-sided ureteral stent placement. Fluoroscopy time: 6 seconds. FINDINGS: A single spot fluoroscopic image of the right upper quadrant is correlated with abdominal C T dated 02/13/2022. The imaged shows the proximal end of a right ureteral stent in appropriate positio n. No calcifications are seen along the imaged portions of the stent. IMPRESSION: Intraoperative image from a right ureteral stent placement procedure as above. Electronically signed by: Luis Celaya M.D. 02/14/2022 8:56 AM
--- NOTE | 2022-02-14 09:19 | Urology Progress Note ---
Date of Service February 14, 2022 Assessment & Plan (1) Hydronephrosis with renal and ureteral calculus obstruction: (2) UTI (urinary tract infection): Plan: 21-year-old female admitted with sepsis secondary to an obstructing right ureteral stone - POD #1 s/p Cystoscopy and Right Ureteral Stent Insertion - Febrile this morning at 38.2 and tachycardic. - Labs reviewed -White count 14.11 and creatinine 0.71 - Urine culture preliminary gram-negative bacilli, blood cultures pending - On IV cefepime, follow cultures - Voiding spontaneously, output appears adequate. Continue to monitor. - Continue supportive care, antibiotics, and prn pain management. - Can consider addition of Tamsulosin, prn Pyridium, and prn Oxybutynin for stent management. - Will need outpatient follow-up for definitive stone treatment after infection has resolved. - Urology will follow. Admission and Anticipated Discharge Date Admission Date: February 13, 2022 Subjective Patient examined at bedside this AM. Awake, resting in bed on arrival. Resting with cool washcloth to forehead. No acute distress. Febrile this morning at 38.2 and tachycardic. Still with right sided flank pain, managing with prn pain medication. Pain is worse with urination. Reports some hematuria and dysuria. Voiding spontaneously. Feels she is emptying her bladder well. No nausea or vomiting at present. States she did not sleep much. Review of Systems Constitutional: as per Subjective / HPI Gastrointestinal: as per Subjective / HPI Genitourinary: as per Subjective / HPI Physical Exam Constitutional: no acute distress Appears fatigued Respiratory: no respiratory distress and no labored breathing Gastrointestinal (Abdomen): Inspection/Auscultation: abdomen normal to inspection Skin: Warm and dry Neurologic: moves all extremities and awake Psychiatric: Orientation: alert and oriented x 3 Genitourinary: Right-sided flank pain Results & Data ([facility]) Vital Signs (Past 12 Hours) Vital Signs Temp Pulse Pulse Pulse Resp BP Pulse Ox 02/14/22 07:54 106 H 146/99 H 02/14/22 07:14 38.2 C H 123 H 18 154/90 H 95 02/14/22 03:00 37.0 C 121 H 18 141/101 H 98 02/14/22 02:14 127 H 02/14/22 01:53 37.4 C 119 H 18 140/117 H 98 02/14/22 00:22 37.4 C 119 H 18 140/117 H 98 02/13/22 23:50 39.4 C H 121 H 18 166/105 H 95 02/13/22 23:40 111 H 24 149/105 H 97 02/13/22 23:30 109 H 16 127/96 94 02/13/22 23:20 36.7 C 131 H 31 H 132/104 H 94 02/13/22 21:29 123 H 18 156/103 H 98 PG Care Time/CCT Total # of Minutes Spent Total Time Spent with Patient: Total time spent is greater than 50% in coordination of care (as documented) at patient's floor/unit and/or counseling patient: Coding Level of Care Code 07508 Subseq Hosp Care Lvl 2 Diagnoses Hydronephrosis with renal and ureteral calculus obstruction N13.2 UTI (urinary tract infection) N39.0
--- NOTE | 2022-02-14 10:35 | Hospitalist Progress Note ---
Date of Service February 14, 2022 Assessment & Plan (1) Sepsis: Plan: #sepsis secondary to pyelonephritis with obstructing R-sided nephrolithiasis -supported by CT abd/pelvis with 3/4 SIRS criteria met: febrile, tachycardic, leukocytosis. -urology consulted - performed cystoscopy on 02/13 and R stent placed -urine cx showing gram negative bacilli; blood cultures pending (were taken after abx started) -broadened from ceftriaxone to cefepime given her previous UTI history and current sepsis -continue LR @125cc/hr -graduated PRN pain regimen: Tylenol 1000mg PO Q8H; Dilaudid 1mg IV Q4H -monitor kidney function (most recent creatinine 0.71), strictly monitor I&Os -monitor CBC and procalcitonin in the AM #history of pericarditis -follows cardio outpatient, takes colchicine daily -TTE pending, she is asymptomatic, continue colchicine #hepatic steatosis -LFTs/bilirubin normal -recommend PCP f/u for further management #depression -stable on sertraline 25 mg po - continue FENGI: LR @125cc/hr, regular diet PPX: Lovenox Full code Admission and Anticipated Discharge Date Admission Date: February 13, 2022 Supervising Physician Co-Signing Physician Notes Attending attestation Pt seen and examined in concert with Dr. Hernández, [facility] Dr. Rodriguez. In agreement with the documented findings as noted in the student/resident documentation with any exceptions or additions as noted here. Ongoing flank pain controlled with current medications with improved flushing/fever subjectively. VS reviewed. On examination, S1/S2 nl tachycardic. no MCG. CTAB. Abd NT/ND BS+ve, +ve flank pain with gentle bellotment of the right Sepsis in the setting of pyelonephritis w/ recurrent nephrolithiasis, obstructing, s/p stent - urology consult - UCx gram neg bacilli, BCx done post abx initiation pending. Escalate to cefepime in the setting of ongoing fever, tachycardia. Hydration and close monitoring. Trend CBC, BMP History of pericarditis - continue colchicine. ECHO today w/ read pending. Else see resident/student documentation as noted. Mayte Nash is a 21 y/o F with PMHx multiple kidney stones ( > 20 hospital visits since the age of 12), and depression who developed R-sided flank pain that awoke her from sleep around 0500 hours on 02/13. Of note she underwent tx for a R-sided kidney stone in June 2021 complicated by aspiration pneumonia, perinephric abscess, and pericarditis (on colchicine ever since). Later that day on 02/13 she presented to the ED after her R flank pain didn't resolve with alternating tylenol/ibuprofen. In the ED she denied fevers, chills, dysuria, poor urine output, chest pain, cough, and SOB. However she was tachycardic to 140s and had WBC count of 12.82 with neutrophil predominance (10.56). Additional workup included: -UA showing irene infection and glycosuria -CT abd/pelvis showing 4 mm x 6 mm R-sided ureteropelvic junction calculus with R hydronephrosis, w/ perinephric and periureteral stranding, and hepatic steatosis -throughout ED course given ceftriaxone 2 gm IV, Zofran 4mg, Dilaudid 0.5 mg x 2 doses, and NSS x 1 L -urine culture was collected before abx given, blood cultures were drawn after abx given Urology was consulted and she underwent stent insertion without complications Today 02/14: Charity feels feverish and has R-sided lower flank pain. The pain is worse with urination and does not radiate anywhere else. She still reports some nausea. She did develop some cough and throat irritation after her stent insertion but no hemoptysis or sputum. Otherwise no chills, chest pain, SOB or swelling. Review of Systems Review of Systems: All systems reviewed & are unremarkable except as noted in HPI & below Physical Exam Constitutional: Lying in bed, tired appearing, with cool wash cloth placed on her forehead Respiratory: normal respiratory effort, lungs clear to auscultation Cardiovascular: Rate/Rhythm: regular rhythm and + tachycardic Heart Sounds: normal S1 and normal S2 extremities warm to the touch; no calf swelling/redness/pain Musculoskeletal: +R sided lower flank pain Skin: warm to the touch, pink Results & Data Results & Data ([facility]) Vital Signs (Past 12 Hours) Vital Signs Temp Pulse Pulse Pulse Resp BP Pulse Ox 02/14/22 08:00 116 H 02/14/22 07:54 106 H 146/99 H 02/14/22 07:14 38.2 C H 123 H 18 154/90 H 95 02/14/22 03:00 37.0 C 121 H 18 141/101 H 98 02/14/22 02:14 127 H 02/14/22 01:53 37.4 C 119 H 18 140/117 H 98 02/14/22 00:22 37.4 C 119 H 18 140/117 H 98 02/13/22 23:50 39.4 C H 121 H 18 166/105 H 95 02/13/22 23:40 111 H 24 149/105 H 97 02/13/22 23:30 109 H 16 127/96 94 02/13/22 23:20 36.7 C 131 H 31 H 132/104 H 94 Laboratory Results 02/14/22 02/14/22 02/13/22 05:21 05:21 21:25 WBC 14.11 H RBC 5.23 Hgb 15.2 Hct 44.0 MCV 84.1 MCH 29.1 MCHC 34.5 RDW Std Deviation 39.8 RDW Coeff of Mann 13.1 Plt Count 247 MPV 10.6 H Immature Gran % (Auto) 0.3 Neut % (Auto) 84.7 Lymph % (Auto) 6.6 [place] % (Auto) 8.2 Eos % (Auto) 0.1 Baso % (Auto) 0.1 Neut # (Auto) 11.96 H Lymph # (Auto) 0.93 L [place] # (Auto) 1.16 H Eos # (Auto) 0.01 Baso # (Auto) 0.01 Immature Gran # (Auto) 0.04 H Sodium 135 L Potassium 3.8 Chloride 103 Carbon Dioxide 23 Anion Gap 9 BUN 8 Creatinine 0.71 Est Cr Clr Drug Dosing 121.4 Est GFR ( Amer) 141.1 Est GFR (Non-Af Amer) 121.8 BUN/Creatinine Ratio 11.3 Glucose 141 H Calcium 8.9 Total Bilirubin AST ALT Alkaline Phosphatase Total Protein Albumin Globulin Albumin/Globulin Ratio Urine Color Urine Appearance Urine pH Ur Specific [place] Urine Protein Urine Glucose (UA) Urine Ketones Urine Blood Urine Nitrite Urine Bilirubin Urine Urobilinogen Ur Leukocyte Esterase Urine WBC (Auto) Urine RBC (Auto) U Hyaline Cast (Auto) U Epithel Cells (Auto) Urine Bacteria (Auto) Urine Test POC Ur Test SARS-CoV-2, RNA, NAAT NEGATIVE 02/13/22 02/13/22 02/13/22 19:49 18:54 18:54 WBC 12.82 H RBC 4.89 Hgb 14.0 Hct 40.4 MCV 82.6 MCH 28.6 MCHC 34.7 RDW Std Deviation 39.0 RDW Coeff of Mann 13.0 Plt Count 263 MPV 10.8 H Immature Gran % (Auto) 0.4 Neut % (Auto) 82.3 Lymph % (Auto) 10.8 [place] % (Auto) 5.5 Eos % (Auto) 0.8 Baso % (Auto) 0.2 Neut # (Auto) 10.56 H Lymph # (Auto) 1.38 [place] # (Auto) 0.71 H Eos # (Auto) 0.10 Baso # (Auto) 0.02 Immature Gran # (Auto) 0.05 H Sodium 136 Potassium 3.7 Chloride 104 Carbon Dioxide 23 Anion Gap 9 BUN 10 Creatinine 0.86 Est Cr Clr Drug Dosing 99.9 Est GFR ( Amer) 111.9 Est GFR (Non-Af Amer) 96.6 BUN/Creatinine Ratio 11.6 Glucose 160 H Calcium 9.2 Total Bilirubin 0.4 AST 23 ALT 38 Alkaline Phosphatase 86 Total Protein 6.7 Albumin 4.1 Globulin 2.6 Albumin/Globulin Ratio 1.6 Urine Color Urine Appearance Urine pH Ur Specific [place] Urine Protein Urine Glucose (UA) Urine Ketones Urine Blood Urine Nitrite Urine Bilirubin Urine Urobilinogen Ur Leukocyte Esterase Urine WBC (Auto) Urine RBC (Auto) U Hyaline Cast (Auto) U Epithel Cells (Auto) Urine Bacteria (Auto) Urine Test Negative POC Ur Test SARS-CoV-2, RNA, NAAT 02/13/22 02/13/22 18:25 18:25 WBC RBC Hgb Hct MCV MCH MCHC RDW Std Deviation RDW Coeff of Mann Plt Count MPV Immature Gran % (Auto) Neut % (Auto) Lymph % (Auto) [place] % (Auto) Eos % (Auto) Baso % (Auto) Neut # (Auto) Lymph # (Auto) [place] # (Auto) Eos # (Auto) Baso # (Auto) Immature Gran # (Auto) Sodium Potassium Chloride Carbon Dioxide Anion Gap BUN Creatinine Est Cr Clr Drug Dosing Est GFR ( Amer) Est GFR (Non-Af Amer) BUN/Creatinine Ratio Glucose Calcium Total Bilirubin AST ALT Alkaline Phosphatase Total Protein Albumin Globulin Albumin/Globulin Ratio Urine Color Yellow Urine Appearance Turbid A Urine pH 5.5 Ur Specific [place] 1.023 Urine Protein 2+ H Urine Glucose (UA) 2+ H Urine Ketones Trace H Urine Blood 2+ H Urine Nitrite Positive A Urine Bilirubin Negative Urine Urobilinogen Negative Ur Leukocyte Esterase 3+ H Urine WBC (Auto) >30 H Urine RBC (Auto) >30 H U Hyaline Cast (Auto) 5-10 H U Epithel Cells (Auto) >30 H Urine Bacteria (Auto) 4+ H Urine Test POC Ur Test Cancelled SARS-CoV-2, RNA, NAAT Diagnostic Findings Abdomen/Pelvis CT 02/13/22 19:29 CT OF THE ABDOMEN AND PELVIS WITHOUT CONTRAST CLINICAL HISTORY: Right flank pain. COMPARISON STUDY: Renal ultrasound September 07, 2021. CT of the abdomen and pelvis July 21, 2021. TECHNIQUE: Axial images of the abdomen and pelvis were obtained without IV contrast. Images were reviewed in the axial, sagittal, and coronal planes. Automated exposure control was utilized for the study. A dose lowering technique was utilized adhering to the principles of ALARA. FINDINGS: Lung bases are unremarkable. A 6 mm x 4 mm right ureteropelvic junction calculus results in moderate right hydronephrosis with perinephric and periureteral stranding. Punctate left renal calculus is present. No left hydronephrosis is noted. There is hepatic steatosis. Borderline splenomegaly is noted. Unenhanced images of the adrenal glands and pancreas are unremarkable. There is no biliary or pancreatic ductal dilatation. The appendix is unremarkable. There is no evidence for a bowel obstruction. The ovaries are not enlarged. There is no lymphadenopathy. No acute fracture or suspicious lesion within the visualized skeletal structures is present. IMPRESSION: 1. 6 mm x 4 mm right ureteropelvic junction calculus which results in moderate right hydronephrosis with perinephric and periureteral stranding. 2. Punctate left renal calculus. 3. Hepatic steatosis. ACT 112: Negative or not required by law. Electronically signed by: Austin Vance M.D. 02/13/2022 8:27 PM
[2022-02-14] MEDS: CEFEPIME 2,000 MG in SYRINGE 0 ML IV SCH ×2 (11:07→22:01)
[2022-02-14] MEDS: ENOXAPARIN INJ 40 MG/0.4 ML SYR SQ SCH (11:08)
--- NOTE | 2022-02-14 18:36 | XCELERA ---
[id number] \\[id number]
[2022-02-14] MEDS ORDERED: oxyCODONE/ACETAMINOPHEN 5mg/325mg TAB PO STA (20:12)
[2022-02-14] MEDS ORDERED: cefTRIAXone SODIUM 2,000 MG in DEXTROSE 5% 50 ML IV SCH (21:00)
[2022-02-14] MEDS ORDERED: MELATONIN 3 MG TAB PO PRN (22:37)
[2022-02-14] MEDS: guaiFENesin 600 MG TABCR PO PRN (23:09)
[2022-02-15] MEDS: LACTATED RINGER'S 1,000 ML IV SCH ×2 (03:24→08:16)
[2022-02-15] MEDS: HYDROmorphone INJ 1 MG/ML SYRINGE IV PRN (03:24)
[2022-02-15 06:18] LABS: Basophils # (auto) 0.02 K/uL (0-0.2); Basophils % (auto) 0.2 %; Eosinophils # (auto) 0.12 K/uL (0-0.5); Eosinophils % (auto) 1.1 %; Hematocrit (blood only) 35.6 % (37-47); Hemoglobin 12.6 g/dL (12.0-16.0); Immature Granulocytes # (auto) 0.09 K/uL (0.00-0.02); Immature Granulocytes % (auto) 0.8 %; Lymphocytes # (auto) 1.95 K/uL (1.2-3.4); Lymphocytes % (auto) 17.4 %; Mean Corpuscular Hemoglobin 29.4 pg (25-34); Mean Corpuscular Hgb Conc 35.4 g/dL (32-36); Mean Corpuscular Volume 83.2 fL (80-100); Mean Platelet Volume 10.2 fL (7.4-10.4); Monocytes # (auto) 1.05 K/uL (0.11-0.59); Monocytes % (auto) 9.4 %; Neutrophils # (auto) 7.97 K/uL (1.4-6.5); Neutrophils % (auto) 71.1 %; Platelet Count 210 K/uL (130-400); RDW Coefficient of Variation 13.2 % (11.5-14.5); RDW Standard Deviation 39.8 fL (36.4-46.3); Red Blood Count 4.28 M/uL (4.2-5.4)
[2022-02-15 06:59] LABS: Anion Gap 7 (3-11); Blood Urea Nitrogen 6 mg/dl (6-23); Calcium 8.3 mg/dl (8.5-10.1); Carbon Dioxide 24 mmol/L (21-32); Chloride 104 mmol/L (98-107); Creatinine Clr Calc Pharmacy 143.5 ml/min; Est GFR (African American) > 150.0 ml/min; Est GFR (Non-African American) 130.3 ml/min; Glucose 99 mg/dl (70-99(Fasting)); Magnesium 1.6 mg/dl (1.7-2.4); Potassium 3.3 mmol/L (3.5-5.1); Sodium 135 mmol/L (136-145)
[2022-02-15] MEDS ORDERED: oxyCODONE HCL IR 5 MG TAB (IMMEDIATE RELEASE) PO PRN (07:49)
[2022-02-15] MEDS ORDERED: POTASSIUM CHLORIDE CRTAB 20 MEQ TABCR PO STA (07:49)
[2022-02-15] MEDS: MAGNESIUM SULFATE / D5W 1 GM/100 ML BAG IV SCH ×2 (08:16→10:18)
[2022-02-15] MEDS: ENOXAPARIN INJ 40 MG/0.4 ML SYR SQ SCH (08:17)
[2022-02-15] MEDS: COLCHICINE 0.6 MG TAB PO SCH (08:18)
[2022-02-15] MEDS: guaiFENesin 600 MG TABCR PO PRN (08:18)
[2022-02-15] MEDS: SERTRALINE HCL 50 MG TABLET PO SCH (08:18)
--- NOTE | 2022-02-15 09:17 | Urology Progress Note ---
Date of Service February 15, 2022 Assessment & Plan (1) Hydronephrosis with renal and ureteral calculus obstruction: (2) UTI (urinary tract infection): Plan: 21-year-old female admitted with sepsis secondary to an obstructing right ureteral stone - POD #2 s/p Cystoscopy and Right Ureteral Stent Insertion. - Still with right flank pain secondary to ureteral stent, tolerable with prn pain medication. - Afebrile, hemodynamically stable. - Labs reviewed -White count improved to 11.20 and creatinine 0.60. - Urine culture preliminary with Klebsiella, blood cultures preliminary no growth x24 hours - On IV cefepime, follow cultures - Voiding spontaneously, output appears adequate. Continue to monitor. - Continue supportive care, antibiotics, and prn pain management. - Consider addition of Tamsulosin, prn Pyridium, and prn Oxybutynin for stent management. - Will need outpatient follow-up for definitive stone treatment after infection has resolved. - Urology will sign off. Please contact us with any further questions, concerns, changes in patient status. Admission and Anticipated Discharge Date Admission Date: February 13, 2022 Supervising Physician Co-Signing Physician Notes Discussed patient with MCKENNA. Agree with plan. Subjective Patient examined at bedside this AM. Awake, resting in bed on arrival. No acute distress. No fevers overnight. Feeling slightly better this morning. Still with right sided flank pain, managing with prn pain medication. Pain is worse with urination. Reports some hematuria and dysuria. Voiding spontaneously. Feels she is emptying her bladder well. Still with decreased appetite. Some nausea, no vomiting. Review of Systems Constitutional: as per Subjective / HPI Gastrointestinal: as per Subjective / HPI Genitourinary: as per Subjective / HPI Physical Exam Constitutional: no acute distress Respiratory: no respiratory distress and no labored breathing Gastrointestinal (Abdomen): Inspection/Auscultation: abdomen normal to inspect ion Percussion/Palpation: + abdomen tender (Right-sided flank tenderness) and abdomen soft Skin: Warm and dry Neurologic: moves all extremities and awake Psychiatric: Orientation: alert and oriented x 3 Results & Data ([facility]) Vital Signs (Past 12 Hours) Vital Signs Temp Pulse Pulse Pulse Resp BP Pulse Ox 02/15/22 08:00 36.8 C 90 18 124/73 96 02/15/22 03:01 37.1 C 104 H 18 128/90 98 02/15/22 00:15 119 H 02/14/22 22:43 37.3 C 115 H 20 125/83 95 PG Care Time/CCT Total # of Minutes Spent Total Time Spent with Patient: Total time spent is greater than 50% in coordination of care (as documented) at patient's floor/unit and/or counseling patient: Coding Level of Care Code 22671 Subseq Hosp Care Lvl 2 Diagnoses Hydronephrosis with renal and ureteral calculus obstruction N13.2 UTI (urinary tract infection) N39.0
--- NOTE | 2022-02-15 09:55 | Hospitalist Progress Note ---
Date of Service February 15, 2022 Assessment & Plan (1) Sepsis: Plan: #sepsis secondary to pyelonephritis with obstructing R-sided nephrolithiasis (4 mm x 6 mm) -improving, can discharge today 02/15 -supported by CT abd/pelvis with 3/4 SIRS criteria met on admission: febrile, tachycardic, leukocytosis. -WBC count today 02/15 is 11.20, down from 14.11 on 02/14 (neutrophils down to 12.6 from 15.2) -urology consulted - performed cystoscopy on 02/13 and R stent placed for dysuria can start Tamsulosin 0.4 mg daily, PRN Pyridium upon discharge; PCP or urology can consider starting Oxybutynin if symptoms persist will f/u with Dr. Montesinos outpatient for stone treatment and nephrology for stone workup -urine cx showed Klebsiella; blood cx no growth after 24 hours switch from cefepime IV to cefdinir PO 300 mg BID for total of 14 days (end abx on February 27, 2022) -pain regimen: Percocet 5 for 3 additional days after discharge -kidney function stable (Cr = 0.61), she is voiding spontaneously -continue LR @125cc/hr -I&Os: +2155 balance #history of pericarditis -follows cardio outpatient, takes colchicine daily -TTE normal on 02/14, she is still asymptomatic, continue colchicine #hepatic steatosis -LFTs/bilirubin normal -PCP f/u for further management #depression -stable on sertraline 25 mg po - continue FENGI: LR @125cc/hr, regular diet PPX: Lovenox Full code Admission and Anticipated Discharge Date Admission Date: February 13, 2022 Mayte Nash is a 21 y/o F with PMHx multiple kidney stones ( > 20 hospital visits since the age of 12), and depression who developed R-sided flank pain that awoke her from sleep around 0500 hours on 02/13. Of note she underwent tx for a R-sided kidney stone in June 2021 complicated by aspiration pneumonia, perinephric abscess, and pericarditis (on colchicine ever since). Later that day on 02/13 she presented to the ED after her R flank pain didn't resolve with alternating tylenol/ibuprofen. In the ED she denied fevers, chills, dysuria, poor urine output, chest pain, cough, and SOB. However she was tachycardic to 140s and had WBC count of 12.82 with neutrophil predominance (10.56). Additional workup included: -UA showing irene infection and glycosuria -CT abd/pelvis showing 4 mm x 6 mm R-sided ureteropelvic junction calculus with R hydronephrosis, w/ perinephric and periureteral stranding, and hepatic steatosis -throughout ED course given ceftriaxone 2 gm IV, Zofran 4mg, Dilaudid 0.5 mg x 2 doses, and NSS x 1 L -urine culture was collected before abx given, blood cultures were drawn after abx given Urology was consulted and she underwent stent insertion without complications Today 02/15: Charity feels less feverish and is without chills. Still has R-sided lower flank pain (max pain is 7/10, comes down to 2-3/10 with meds) especially after voiding which she is doing spontaneously. No pain radiation. She still reports low appetite but no vomiting. This morning woke up with yellow sputum and an infrequent cough but no SOB. Otherwise no chest pain or swelling. Review of Systems Review of Systems: All systems reviewed & are unremarkable except as noted in HPI & below Physical Exam Constitutional: WD/WN, vitals as above Respiratory: normal respiratory effort, lungs clear to auscultation no conversational dyspnea Cardiovascular: Rate/Rhythm: regular rhythm and + tachycardic Heart Sounds: normal S1 and normal S2 no LE redness, swelling or pain Gastrointestinal (Abdomen): normal bowel sounds, soft, nontender, no hepatosplenomegaly Inspection/Auscultation: normal bowel sounds Results & Data Results & Data ([facility]) Vital Signs (Past 12 Hours) Vital Signs Temp Pulse Pulse Pulse Resp BP Pulse Ox 02/15/22 08:00 36.8 C 96 H 90 18 124/73 96 02/15/22 03:01 37.1 C 104 H 18 128/90 98 02/15/22 00:15 119 H 02/14/22 22:43 37.3 C 115 H 20 125/83 95 Laboratory Results 02/15/22 02/15/22 05:49 05:49 WBC 11.20 H RBC 4.28 Hgb 12.6 Hct 35.6 L MCV 83.2 MCH 29.4 MCHC 35.4 RDW Std Deviation 39.8 RDW Coeff of Mann 13.2 Plt Count 210 MPV 10.2 Immature Gran % (Auto) 0.8 Neut % (Auto) 71.1 Lymph % (Auto) 17.4 [place] % (Auto) 9.4 Eos % (Auto) 1.1 Baso % (Auto) 0.2 Neut # (Auto) 7.97 H Lymph # (Auto) 1.95 [place] # (Auto) 1.05 H Eos # (Auto) 0.12 Baso # (Auto) 0.02 Immature Gran # (Auto) 0.09 H Sodium 135 L Potassium 3.3 L Chloride 104 Carbon Dioxide 24 Anion Gap 7 BUN 6 Creatinine 0.60 Est Cr Clr Drug Dosing 143.5 Est GFR ( Amer) > 150.0 Est GFR (Non-Af Amer) 130.3 BUN/Creatinine Ratio 10.0 Glucose 99 Calcium 8.3 L Magnesium 1.6 L
--- NOTE | 2022-02-15 10:29 | Discharge Summary ---
Date of Service February 15, 2022 Admission HPI Per Admitting Provider Charity Palafox is a pleasant 21yo female presenting with right flank pain. Patient developed severe right flank pain and lower abdominal pain with nausea this morning around 05:00. She denies fever, chills, chest pain, cough, SOB. She has had normal UOP with no dysuria. Normal bowel movement. Last meal this evening at 15:00 - hamburger and kazakh fries. Patient tachycardic on arrival with leukocytosis WBC=12.82. Found to have a 4mm x 6mm right ureteropelvic junction calculus with moderate right hydronephrosis with perinephric and periureteral stranding. Urology consulted and plan for OR this evening. Of note, patient with history of right sided nephrolithiasis in June 2021. She had cystoscopy with placement of right ureteral stent. Two days following her procedure she developed nausea and vomiting with aspiration resulting in acute hypoxic respiratory failure requiring intubation and mechanical ventilation for 2 days at [facility]. She was ultimately discharged home in stable condition to complete a course of antibiotics. Several weeks later she was seen in the ER after developing pleuritic chest pain and found to have trace right pleural effusion and pericardial effusion. She was started on Colchicine and NSAIDS for management of pericarditis. She was admitted to [facility] on 07/21/21 after developing significant diarrhea secondary to Colchicine use. She was also found to have right sided pyelonephritis with perinephric abscess and presence of right nephroureteral stent. She was evaluated by Urology and instructed to followup with her Urology team at [place] for stent removal. Repeat renal ultrasound prior to discharge did not reveal renal abscess. She was ultimately discharged home to complete a course of Ciprofloxacin ER Course: Ceftriaxone 2gm, Zofran 4mg, Dilaudid 0.5mg x 2 doses, NSS x 1 liter Admission Exam Per Admitting Provider General: patient mildly uncomfortable, tearful and anxious in appearance, NAD, non-toxic Skin: warm, dry, intact, no rashes or lesions HEENT: NC/AT, PERRL, EOMI, anicteric sclera, conjunctiva without injection, external ear normal to inspection and nontender, nares patent, moist mucus membranes, dentition intact, no oropharyngeal lesions, neck supple, trachea midline, no LAD, no thyromegaly, no JVD Heart: +S1/S2, regular, tachycardic, no m/r/g Lungs: equal air entry bilaterally, no rales/rhonchi/wheezes Abd: +BS, soft, ND, mild tenderness in RLQ without rebound/guarding, no masses/organomegaly/ascites Ext: warm, 2+ pulses in UE/LE bilaterally, no clubbing/cyanosis or edema Neuro: nonfocal, patient AA&O x 4, speech intact, no facial droop, moving all extremities on command with equal strength 5/5 Principal Diagnosis sepsis secondary to pyelonephritis with obstructing R-sided nephrolithiasis (4 mm x 6 mm) Discharge Exam Constitutional WD/WN, vitals as above Respiratory normal respiratory effort, lungs clear to auscultation no conversational dyspnea, no coughing during my interview with her Cardiovascular Rate/Rhythm: regular rhythm and + tachycardic Heart Sounds: normal S1 and normal S2 no LE redness, swelling or pain Gastrointestinal (Abdomen) normal bowel sounds, soft, nontender, no hepatosplenomegaly +suprapubic tenderness Discharge Data Allergies Allergy/AdvReac Type Severity Reaction Status Date / Time No Known Allergies Allergy Verified 02/13/22 19:43 Consultations 02/13/22 22:29 ED Decision to Admit Stat 02/14/22 00:22 Consult Urology Routine Procedures Performed Operation Date: 02/13/22 22:15 Actual Procedures p Cystoscopy and Right Ureteral Stent Insertion(Right) - Jacinto Montesinos MD Ordered Studies 02/13/22 FL KUB Routine 02/13/22 19:29 CT abd pelvis wo con Stat Hospital Course (1) Sepsis: #sepsis secondary to pyelonephritis with obstructing R-sided nephrolithiasis (4 mm x 6 mm) -improving, can discharge today 02/15 -supported by CT abd/pelvis with 3/4 SIRS criteria met on admission: febrile, tachycardic, leukocytosis. -WBC count today 02/15 is 11.20, down from 14.11 on 02/14 (neutrophils down to 12.6 from 15.2) -urology consulted - performed cystoscopy on 02/13 and R stent placed for dysuria can start Tamsulosin 0.4 mg daily, PRN Pyridium upon discharge; PCP or urology can consider starting Oxybutynin if symptoms persist will f/u with Dr. Montesinos outpatient for stone treatment and nephrology for stone workup -urine cx showed Klebsiella; blood cx no growth after 24 hours switch from cefepime IV to cefdinir PO 300 mg BID for total of 14 days (end abx on February 27, 2022) PCP to f/u in 48 hours with pending cultures -pain regimen: Percocet 5 PRN for 3 additional days after discharge -kidney function stable (Cr = 0.61), she is voiding spontaneously #history of pericarditis -follows cardio outpatient, takes colchicine daily -TTE normal on 02/14, she is still asymptomatic, continue colchicine #hepatic steatosis -LFTs/bilirubin normal -PCP f/u for further management #depression -stable on sertraline 25 mg po - continue Total Time Total Time Spent Total Time Spent (In Minutes): see attending attestation Discharge Plan Discharge Items Patient Disposition: Home - Self-Care Reason For Visit: INFECTED RENAL STONE, HYDRONEPHROSIS Discharge Diagnosis: sepsis with pyelonephritis Activity: Per Instructions section Non-emergency contact: Primary Care Provider Call non-emergency contact if: you have any medication questions and your symptoms worsen Follow-up/Referrals: Jacinto Montesinos MD [Physician] - Darvin Arteaga [Primary Care Provider] - Diet: Regular Addtl Attending Provider Instructions: You were seen and admitted for concerns regarding a serious systemic infection called sepsis that occurred following a retained kidney stone. You had a stent placed after that to allow for the stone to pass. You should have a follow-up with the urologist in the coming week, and then working with your primary care doctor and a roper operator in order to determine the source of your recurrent kidney stones. Pending Studies at Discharge: No Stand-Alone Forms: My [facility], Work/School Release, Smoking Cess ation Medications and DC Order Prescriptions: New oxycodone-acetaminophen [Percocet] 5-325 mg tablet 1 tab PO Q6H PRN (Reason: pain) Qty: 14 RF: 0 tamsulosin 0.4 mg capsule 0.4 mg PO DAILY 30 Days Qty: 30 RF: 0 cefdinir 300 mg capsule 300 mg PO BID 13 Days Qty: 26 RF: 0 phenazopyridine [Pyridium] 100 mg tablet 200 mg PO Q8H PRN (Reason: pelvic pain) Qty: 20 RF: 0 Continued colchicine 0.6 mg capsule 0.6 mg PO BID Qty: 20 RF: 0 sertraline 25 mg tablet 25 mg PO DAILY RF: 0 ibuprofen 600 mg tablet 600 mg PO TID PRN (Reason: Pain) RF: 0 Discharge Orders: Discharge Order (Routine); Ordered 02/15/22 Ordered By: Pedrito Rahman Admission Data Admit Date/Time: 02/13/22 21:34 Attending Provider: Subhash Goldstein Admit Provider: Sonia Marin Primary Care Provider: Darvin Arteaga Other Providers: Sonia Marin ; Jacinto Montesinos Other Interventions: Discharge Summary Assessment (RN) Last Done: 02/15/22 13:15 Supervising Physician Co-Signing Physician Notes Patient seen and examined with PGY-3 Dr. Rahman and MS2 Douglas Rodriguez. Agree with history, exam findings, assessment and plan as outlined. In brief, Charity is a 21 year old female with history of recurrent nephrolithiasis admitted with sepsis secondary to a right sided obstructing nephrolithiasis. VS and nursing notes reviewed. Well appearing. Mild right flank tenderness. Labs and imaging reviewed. * Sepsis. Urine growing mccracken-sensitive Klebsiella. Blood cultures No growth to date. WBCs trending down. Switch to cefdinir. Added tamsulosin and pyridium. Pain management with Precocet 5/325 #12 tabs sent to pharmacy. * R sided obstruction nephrolithiasis. S/p stent and cystoscopy. * History of pericarditis. TTE. Continue colchicine. Discharge home today. I personally spent 25 minutes discharge planning for this patient.
[2022-02-15] MEDS: CEFEPIME 2,000 MG in SYRINGE 0 ML IV SCH (12:16)
== END 2022-02-15 14:58 | disposition home or self-care (01) | DRG 854 ==
LOC: ED 18:27 → 2E 21:34 → SUATTDRO 21:34 → 2E 22:15

== ENCOUNTER 2022-04-16 19:34 | Inpatient (IN) ==
[2022-04-16] MEDS ORDERED: ONDANSETRON INJ 2 MG/ML 2 ML VIAL IV STA (20:07)
[2022-04-16] MEDS ORDERED: SODIUM CHLORIDE 0.9% 1000ML 1,000 ML IV ONE (20:07)
[2022-04-16] MEDS ORDERED: MoRPHine SULFATE 4 MG/ML 1 ML CARP\\VIAL IV PRN (20:07)
[2022-04-16] MEDS ORDERED: ACETAMINOPHEN 1000 MG/100 ML IV IV STA (20:09)
--- NOTE | 2022-04-16 20:16 | Emergency Department Note ---
Impression & Plan Renal colic, UTI (urinary tract infection), Fever, Leukocytosis, COVID-19 ED Provider Note NAME: GUERDA OHARA AGE: 22 SEX: F : 2000 ARRIVES VIA: Walk-In INFORMANT: [Patient] ED PROVIDER(S): [Luis Anderson MD] CHIEF COMPLAINT: Kidney stone HISTORY OF PRESENT ILLNESS: The patient is a 22-year-old female with a history of kidney stones. She presents with 1.5 days of left flank pain. The pain has been bad as an 8/10. She has had some nausea. She developed some aches and chills today and was noted to have a fever. She presented to an outside ER and was diagnosed with a septic left ureteral stone. The stone was measured at [address] imaging. She was also found to be COVID-positive. As she sees urology at this hospital, she was referred to our ER as an ER to ER transfer for specialty care and hospitalization. The patient was given medication for pain, she received morphine. She was given Zofran for nausea, Toradol for pain. She received IV ceftriaxone as antibiotic coverage. REVIEW OF SYSTEMS: See HPI for pertinent positives and negatives. A total of ten systems were reviewed and were otherwise negative. PMHx/PSHx: See Below SOCIAL HISTORY: See Below. PHYSICAL EXAM: GENERAL: Patient is in no acute distress. HEENT: No acute trauma, normocephalic atraumatic, mucous membranes moist, no nasal congestion, no scleral icterus. NECK: No stridor, no adenopathy, no meningismus, trachea is midline. LUNGS: Clear to auscultation bilaterally, no wheeze, no rhonchi, breath sounds equal. HEART: Tachycardic, regular rhythm, no murmurs. ABDOMEN: Soft, mildly tender in the left upper quadrant, no rebound, no peritonitis. EXTREMITIES: No cyanosis or edema, full range of motion of all the joints without pain or difficulty, no signs for acute trauma. NEUROLOGIC: Oriented x 3, no acute motor or sensory deficits, no focal weakness. SKIN: No rash, no jaundice, no diaphoresis. Back: Left flank discomfort with percussion. DIFFERENTIAL DIAGNOSIS: Hydronephrosis, pyelonephritis, bacteremia, sepsis, dehydration, renal failure, electrolyte imbalance, COVID-19, pneumonia, among others. EMERGENCY DEPARTMENT COURSE/PROCEDURES: MEDICAL DECISION MAKING: There is a moderate leukocytosis at 14,000, this is consistent with infection. A very mild anemia was seen. There was a normal platelet count. Renal panel testing showed a lower sodium at 134 and a lower potassium at 2.9. No renal failure. Lactic acid level was not elevated making severe sepsis less likely. Looking at her results from the outside hospital, she did appear to have a UTI. She was COVID-positive. She had a 2 mm left ureteral stone. The patient was sent here for hospitalization and urologic care. Urology was consulted and did see the patient here in the ED. The patient had already received IV ceftriaxone. This appeared to be adequate antibiotic coverage. She was given a liter of IV saline while here in our ED. She received IV Zofran for nausea, IV morphine for pain. She received IV Tylenol for fever. The patient looks comfortable. I did speak with the patient, I spoke with case management, the on-call hospitalist has been consulted. Past Med/Surg History Medical History Abscess of right kidney (~07/2021) Treated inpatient at [facility] (pyelonephritis) Renal abscess resolved per 09/2021 Aspiration pneumonia (~07/2021) - Pt had cysto with right ureteral stent placement on 07/01/21- without complication- two days later- developed N/V- diagnosed with aspiration pneumonia. Admitted initially to [facility] ICU- put on mechanical ventilation- discharged on Augmentin and Flagyl -07/17/22- pt seen at [facility] ER due to pleuritic chest pain - CT scan showed trace right pleural effusion and trace pericardial effusion - Pt then admitted to [facility] 07/23/21- possible small right kidney abscess/pericarditis Depression History of COVID-17 November 2021. Minor cold symptoms. No current problems History of kidney stones History of pericarditis (~07/2021) Presumed during ER visit 07/17/21- started on colchicine R/t kidney abscess and treated inpatient [facility] Follows with cardio as outpatient per 01/2022 discharge summary Pleural effusion, right Trace per 07/17/21 chest CTA Surgical History History of renal stent Family History Father Kidney stone Other Diabetes No family history of adverse response to anesthesia Social History Smoking Status: Never smoker Second Hand Exposure: No; Hx Alcohol Use: Yes Hx Substance Use: No Preferred Language: Kyrgyz Communication Ability: Effective Nut Chopper Required: No Beliefs That Will Affect Care: None Current Living Situation: Parent and Significant Other Feels Safe at Home: Yes Assistive Devices: None Allergies Allergies Allergy/AdvReac Type Severity Reaction Status Date / Time No Known Allergies Allergy Verified 04/16/22 20:23 Home Meds Home Medications Medication Instructions Recorded Confirmed sertraline 25 mg tablet 25 mg PO QPM 02/13/22 04/16/22 Results & Data (ED) Vital Signs Vital Signs - 24 hr 04/16/22 19:37 04/16/22 20:37 04/16/22 20:40 Temperature 38.2 C H Temperature Source Temporal Artery Scan Pulse Rate 146 H 122 H 117 H Respiratory Rate 18 26 H 24 Respiratory Effort / Characteristics Non-Labored Spontaneous Respiratory Depth Normal Blood Pressure 123/77 119/77 Blood Pressure Mean 92 91 Pulse Oximetry 98 100 99 Oxygen Delivery Method Room Air Room Air Room Air Sepsis Recent Fever Within 48 Hours Yes Sepsis New/Unexplained Change in Mental Status Yes Sepsis Action Taken by Nursing MD Previously Notified 04/16/22 20:50 Temperature Temperature Source Pulse Rate 119 H Respiratory Rate 23 Respiratory Effort / Characteristics Respiratory Depth Blood Pressure Blood Pressure Mean Pulse Oximetry 100 Oxygen Delivery Method Room Air Sepsis Recent Fever Within 48 Hours Sepsis New/Unexplained Change in Mental Status Sepsis Action Taken by Long Term Medications Current Medication List: was personally reviewed by me Laboratory Data Attestation: I reviewed the patient's lab results. Result diagrams: 04/16/22 21:22 04/16/22 21:22 Lab Results 04/16/22 04/16/22 04/16/22 Range/Units 21:22 21:22 21:22 WBC 14.76 H (4.8-10.8) K/ul RBC 4.16 (3.93-5.22) M/uL Hgb 11.6 L (12.0-16.0) g/dl Hct 34.7 (34.1-44.9) % MCV 83.4 (80.0-100.0) fL MCH 27.9 (25.0-34.0) pg MCHC 33.4 (32.0-36.0) g/dL RDW Std Deviation 40.1 (36.4-46.3) fL RDW Coeff of Mann 13.2 (11.5-14.5) % Plt Count 208 (130-400) K/uL MPV 10.7 (9.4-12.3) fL Immature Gran % (Auto) 0.4 % Neut % (Auto) 79.7 % Lymph % (Auto) 10.0 % Edmonson % (Auto) 9.7 % Eos % (Auto) 0.1 % Baso % (Auto) 0.1 % Neut # (Auto) 11.76 H (1.4-6.5) K/uL Lymph # (Auto) 1.48 (1.2-3.4) K/uL Edmonson # (Auto) 1.43 H (0.24-0.82) K/uL Eos # (Auto) 0.01 (0-0.50) K/uL Baso # (Auto) 0.02 (0-0.2) K/uL Immature Gran # (Auto) 0.06 H (0.00-0.02) K/uL Sodium 134 L (136-145) mmol/L Potassium 2.9 L (3.5-5.1) mmol/L Chloride 104 (98-107) mmol/L Carbon Dioxide 20 L (21-32) mmol/L Anion Gap 10 (3-11) BUN 7 (6-23) mg/dl Creatinine 0.88 (0.6-1.2) mg/dl Est Cr Clr Drug Dosing 93.7 ml/min Est GFR ( Amer) 108.1 ml/min Est GFR (Non-Af Amer) 93.3 ml/min BUN/Creatinine Ratio 8.0 L (10-20) Glucose 108 H (70-99(Fasting)) mg/dl Lactate (0.4-2.0) mmol/L Calcium 8.0 L (8.5-10.1) mg/dl HCG, Qual Negative (Negative) 04/16/22 Range/Units 21:23 WBC (4.8-10.8) K/ul RBC (3.93-5.22) M/uL Hgb (12.0-16.0) g/dl Hct (34.1-44.9) % MCV (80.0-100.0) fL MCH (25.0-34.0) pg MCHC (32.0-36.0) g/dL RDW Std Deviation (36.4-46.3) fL RDW Coeff of Mann (11.5-14.5) % Plt Count (130-400) K/uL MPV (9.4-12.3) fL Immature Gran % (Auto) % Neut % (Auto) % Lymph % (Auto) % Edmonson % (Auto) % Eos % (Auto) % Baso % (Auto) % Neut # (Auto) (1.4-6.5) K/uL Lymph # (Auto) (1.2-3.4) K/uL Edmonson # (Auto) (0.24-0.82) K/uL Eos # (Auto) (0-0.50) K/uL Baso # (Auto) (0-0.2) K/uL Immature Gran # (Auto) (0.00-0.02) K/uL Sodium (136-145) mmol/L Potassium (3.5-5.1) mmol/L Chloride (98-107) mmol/L Carbon Dioxide (21-32) mmol/L Anion Gap (3-11) BUN (6-23) mg/dl Creatinine (0.6-1.2) mg/dl Est Cr Clr Drug Dosing ml/min Est GFR ( Amer) ml/min Est GFR (Non-Af Amer) ml/min BUN/Creatinine Ratio (10-20) Glucose (70-99(Fasting)) mg/dl Lactate 0.9 (0.4-2.0) mmol/L Calcium (8.5-10.1) mg/dl HCG, Qual (Negative) Administered Medications Discontinued Medications Acetaminophen (Acetaminophen 1000 Mg/100 Ml Iv) 1,000 mg IV NOW STA Stop: 04/16/22 20:10 Last Admin: 04/16/22 20:40 Dose: 1,000 mg Documented By: HG Sodium Chloride (Nss 1000ml) 1,000 mls @ 999 mls/hr IV .Q1H1M ONE Stop: 04/16/22 21:07 Last Infusion: 04/16/22 22:01 Dose: 0 mls/hr Documented By: Admin: 04/16/22 20:39 Dose: 999 mls/hr Documented By: CAROLE Ceftriaxone Sodium 1,000 mg/ (Dextrose) 60 mls @ 100 mls/hr IV Q24H [facility]; Protocol Stop: 04/26/22 21:44 Last Admin: 04/16/22 22:20 Dose: Not Given Documented By: CAROLE Ondansetron HCl (Ondansetron Inj 2 Mg/Ml 2 Ml Vial) 4 mg IV NOW STA Stop: 04/16/22 20:08 Last Admin: 04/16/22 20:39 Dose: 4 mg Documented By: CAROLE Discharge Plan Visit Data Chief Complaint: Kidney Stone Stated Complaint: COVID +, KIDNEY STONE ED Provider: Luis Anderson Discharge Problem: Renal colic, UTI (urinary tract infection), Fever, Leukocytosis, COVID-19 Patient Disposition: Admitted As Inpatient Condition: Fair Forms Stand Alone Forms: [facility] Prescriptions Prescriptions: No Action sertraline 25 mg tablet 25 mg PO QPM Referrals Referrals: Darvin Arteaga [Primary Care Provider] -
--- NOTE | 2022-04-16 21:16 | Urology Consultation ---
Date of Consultation April 16, 2022 Assessment & Plan (1) Nephrolithiasis: (2) UTI (urinary tract infection): The patient is being admitted on the hospitalist service. We recommend proceeding as follows: I discussed with the treating hospitalist and he notes that she is overall asymptomatic concerning her COVID infection. He does not feel any COVID- specific treatment is required at this time Recommend continuing antibiotics. The patient has received Rocephin While she was at [facility]. Antibiotic should be continued and can be tailored based on pending culture results Recommend hydration with intravenous fluids Consideration should be given to initiating Flomax for expulsive therapy The patient is noted to be normotensive with normal renal function at this time. Although she is tachycardic she is clinically feeling improved since arrival to [facility]. I discussed case with my attending, Dr. Matt. He notes that with an active COVID infection who prefer not to place the patient under general anesthesia at this time. He also notes as the Patient's kidney stone is only 2 mm there is a considerable chance that the the stone will pass on its own with the above-noted measures. Therefore, we will not proceed with operative/cystoscopic intervention at this time. The decision about taking the patient to the operating room can be revisited if the patient shows signs of clinical deterioration. Attending note: Patient was independently assessed, examined, and interviewed. Agree with note as above. Patient was transferred from an outlying facility due to obstructing stone with ill feelings. Patient had previously had intervention for stones due to obstruction. Had previously followed with Dr. Dove. Patient was transferred for urologic coverage. On presentation to our ER patient was further worked up and found to have an active COVID infection. At that point patient was also noted to have some low- grade fevers as well as some mild tachycardia. Patient was found to be behind in fluid resuscitation. The patient was further managed by the emergency room physicians. Had continued hydration and close monitoring. On examination by myself patient was feeling already considerably better with IV fluids. Patient stone was reviewed with imaging reviewed interpreted by myself. Patient has a small 2 mm stone. Did discuss extensively options with patient for further management. Discussed possible spontaneous passage and high likelihood of passage with time and hydration due to its small size. Had initially considered moving forward with stent placement due to the patient's ill feelings however with an active COVID infection after extensive conversation with anesthesia on-call for the evening as well as a discussion with the patient we elected to observe overnight with plans for active resuscitation and hydration and plan for maximum expulsion therapy in order to help facilitate the passage of the stone. Did review with patient as well as the surgical team the possible need for intervention if patient drastically decompensates. Will likely need to monitor patient's blood pressure closely if does develop significant hypotension or begins to have fevers significantly high would at that point have evidence of sepsis which would have increased risk compared to the risk of anesthesia while having an active COVID infection. At that point a possible stent placement would be once again reconsidered. Patient was seen with full protective gear due to the active infection with COVID-19. We will plan to continue with current antibiotic therapy as well as close monitoring. We will continue to follow with plans for emergent intervention if patient becomes severely septic. We will plan to continue to monitor if patient does not achieve spontaneous passage but does improve clinically may be able to consider additional time with outpatient management and possible intervention on stone at a later time. Otherwise we will continue to follow. We will alert Dr. Dove of patient's admission to coordinate care after patient's current admission. Patient's imaging was reviewed interpreted by myself. All labs were reviewed including the patient's elevated white count. The patient's vitals had been closely assessed and continually monitored by myself as well as the nurse practitioner and urology team. Patient's complicated history was reviewed and summarized as above. Most recent surgical intervention for stone disease was also reviewed and summarized above. History of Present Illness Reason for Consultation: Nephrolithiasis History of Present Illness This is a 22-year-old female who presented to the emergency department at [facility] secondary to left flank pain that began approximate 1.5 days ago. Patient does have a history of kidney stones in the past and felt as though her pain was similar to what she experienced in the past prompting her visit to the emergency department. While at this facility the patient had a CT scan that showed a 2 mm obstructing left kidney stone. She also had labs which included white blood cell count is elevated at 15.6. Her hemoglobin, hematocrit, platelet count were normal. Chemistry profile showed sodium, BUN, and creatinine were normal. Her potassium was slightly low at 3.4. A test was negative. Patient did have a urinalysis that showed positive nitrites along with 2+ leukocyte Estrace and 50-100 white blood cells per high-power field. The specimen also was positive for bacteria. In addition the patient had a COVID test that was noted to be positive. Because of these findings the patient was transferred to the emergency department at [facility] for further urologic care. I did question the patient about her symptoms and she does note that she has been having some dysuria and urinary frequency. She does report some left-sided flank pain with some radiation to the front of her abdomen. She also reports fevers as well as shakes and chills. I question the patient about her being positive for COVID. Patient notes that she does have fevers as well as chills. In addition she reports some generalized myalgias. She specifically denies any cough, shortness of breath, or diarrhea. At the time of my interview the patient was resting comfortably in bed in no distress Allergies Allergy/AdvReac Type Severity Reaction Status Date / Time No Known Allergies Allergy Verified 04/16/22 20:23 Home Medications Medication Instructions Recorded Confirmed Type sertraline 25 mg tablet 25 mg PO QPM 02/13/22 04/16/22 History Patient History Medical History Abscess of right kidney (~07/2021) Treated inpatient at [facility] (pyelonephritis) Renal abscess resolved per 09/2021 Aspiration pneumonia (~07/2021) - Pt had cysto with right ureteral stent placement on 07/01/21- without complication- two days later- developed N/V- diagnosed with aspiration pneumonia. Admitted initially to [facility] ICU- put on mechanical ventilation- discharged on Augmentin and Flagyl -07/17/22- pt seen at [facility] ER due to pleuritic chest pain - CT scan showed trace right pleural effusion and trace pericardial effusion - Pt then admitted to [facility] 07/23/21- possible small right kidney abscess/pericarditis Depression History of COVID-17 November 2021. Minor cold symptoms. No current problems History of kidney stones History of pericarditis (~07/2021) Presumed during ER visit 07/17/21- started on colchicine R/t kidney abscess and treated inpatient [facility] Follows with cardio as outpatient per 01/2022 discharge summary Pleural effusion, right Trace per 11/16/21 chest CTA Surgical History History of renal stent Family History Father Kidney stone Other Diabetes No family history of adverse response to anesthesia Social History Smoking Status: Never smoker Second Hand Exposure: No; Hx Alcohol Use: Yes Hx Substance Use: No Preferred Language: Syriac Communication Ability: Effective Painter And Decorator Required: No Beliefs That Will Affect Care: None Current Living Situation: Parent and Significant Other Feels Safe at Home: Yes Assistive Devices: None Review of Systems Constitutional: + fever and + chills Eyes: no eye pain Ear, Nose, Mouth, Throat: no ear pain Respiratory: no cough and no dyspnea Cardiovascular: no chest pain Gastrointestinal: + abdominal pain (Radiating from left flank) and + nausea Genitourinary: as per Subjective / HPI Musculoskeletal: + back pain (Left flank) Integumentary: no rash Neurologic: no localized weakness Physical Exam Constitutional: well developed and well nourished; no acute distress Eyes: no conjunctival abnormality ENMT: Ears: no hearing impairment Mouth: no oropharynx abnormality Neck: trachea midline Respiratory: normal respiratory effort, lungs clear to auscultation Cardiovascular: Rate/Rhythm: regular rate, regular rhythm and + tachycardic Gastrointestinal (Abdomen): Abdomen is soft, nonrigid, and nondistended. There is some slight pain with palpation in the left lower quadrant. There is no rebound tenderness or guarding. Musculoskeletal: No calf tenderness. Pedal pulses are palpable. Feet are warm and nonmottled. Skin: no rashes Neurologic: moves all extremities Psychiatric: A+Ox3, euthymic affect Genitourinary: + CVA tenderness (Left-sided, noted with percussion) Results & Data ([facility]) Vital Signs (Past 12 Hours) Vital Signs Temp Pulse Resp BP Pulse Ox O2 Del Method 04/16/22 20:50 119 H 23 100 Room Air 04/16/22 20:40 117 H 24 99 Room Air 04/16/22 20:37 122 H 26 H 119/77 100 Room Air 04/16/22 19:37 38.2 C H 146 H 18 123/77 98 Room Air PG Care Time/CCT Total # of Minutes Spent Total Time Spent with Patient: Total time spent is greater than 50% in coordination of care (as documented) at patient's floor/unit and/or counseling patient: Coding Level of Care Code 05904 Inpt Consult Level 5 Diagnoses Nephrolithiasis N20.0 UTI (urinary tract infection) N39.0
--- NOTE | 2022-04-16 21:42 | History & Physical Report ---
Date of Service April 16, 2022 Assessment & Plan (1) Obstruction of left ureteropelvic junction (UPJ) due to stone: Plan: 2 mm left UPJ stone/mild left hydronephrosis- As noted on CT scan from [facility] Seen by urology in emergency department, his feeling is due to the small nature of the stone, there is a reasonable chance the patient may pass the stone without surgical intervention. NPO NSS + KCl 20 mill equivalents at 100 mils per hour Follow urine culture sensitivity Ceftriaxone 1 g IV daily Morphine sulfate 4 mg IV every 4 hours as needed for moderate to severe pain Acetaminophen 1 g IV every 8 hours as needed for mild pain or fever (2) UTI (urinary tract infection): Plan: Antibiotics as above (3) History of pericarditis: Plan: Continue colchicine (4) Depression: Plan: Continue sertraline History of Present Illness Chief Complaint: The patient presents to the emergency department as a transfer from [facility] emergency department to [facility] emergency department, as arranged by urology, due to left flank pain, with CT showing a septic 2 mm left UPJ stone and mild left hydro Primary Care Provider: Darvin Arteaga The patient is a 22-year-old female with a past medical history including urinary tract infection, right pyelonephritis, nonsustained V. tach, right kidney stone, hydronephrosis with renal and ureteral calculus obstruction, perinephric abscess, depression, and pericarditis. She was most recently admitted to [facility] from 02/13-02/15/2022 for a right UPJ stone with moderate right hydronephrosis and right ureteral stent insertion. The emergency department at [facility], spoke with urology and [facility], who arranged transfer to [facility] emergency department, with patient being admitted to the hospitalist service with urology consult Allergies Allergy/AdvReac Type Severity Reaction Status Date / Time No Known Allergies Allergy Verified 04/16/22 20:23 Home Medications Medication Instructions Recorded Confirmed Type sertraline 25 mg tablet 25 mg PO QPM 02/13/22 04/16/22 History Past Med/Surg History Medical History Abscess of right kidney (~07/2021) Treated inpatient at [facility] (pyelonephritis) Renal abscess resolved per 09/2021 Aspiration pneumonia (~07/2021) - Pt had cysto with right ureteral stent placement on 07/01/21- without complication- two days later- developed N/V- diagnosed with aspiration pneumonia. Admitted initially to [facility] ICU- put on mechanical ventilation- discharged on Augmentin and Flagyl -07/17/22- pt seen at [facility] ER due to pleuritic chest pain - CT scan showed trace right pleural effusion and trace pericardial effusion - Pt then admitted to [facility] 07/23/21- possible small right kidney abscess/pericarditis Depression History of COVID-17 November 2021. Minor cold symptoms. No current problems History of kidney stones History of pericarditis (~07/2021) Presumed during ER visit 07/17/21- started on colchicine R/t kidney abscess and treated inpatient [facility] Follows with cardio as outpatient per 01/2022 discharge summary Pleural effusion, right Trace per 07/17/21 chest CTA Surgical History History of renal stent Family History Father Kidney stone Other Diabetes No family history of adverse response to anesthesia Social History Smoking Status: Never smoker Second Hand Exposure: No; Hx Alcohol Use: Yes Hx Substance Use: No Preferred Language: Amharic Communication Ability: Effective Insurance Billing Specialist Required: No Beliefs That Will Affect Care: None Current Living Situation: Parent and Significant Other Other Information That Helps Us Care for You: No Feels Safe at Home: Yes Safety Concerns: Feels Safe At This Time Assistive Devices: Glasses Review of Systems Review of Systems: The patient denies chest pain, palpitations, shortness of breath, dyspnea on exertion, cough, lower extremity swelling, sore throat, fevers, chills, sweats, vomiting, diarrhea , constipation, abdominal pain, pelvic pain, blood in stool, lightheadedness, dizziness, headache, memory loss, loss of consciousness, rash, abnormal bruising or bleeding, imbalance, focal or generalized weakness, numbness or tingling in arms or legs, generalized arthralgias or myalgias, back or neck pain, or night sweats. The review of systems is otherwise negative other than for that already noted above, and at least 10 systems have been reviewed. Physical Exam Physical Exam: The patient is awake, alert and oriented 3, well developed and well nourished, normocephalic and atraumatic, lying in bed and in no acute distress. HEENT--PERRL, EOMI, mucous membranes and oropharynx dry. Neck--supple. No JVD. No bruits. Thyroid normal, trachea midline, no a denopathy. Heart--normal S1 and S2. No murmurs, rubs or gallops. Lungs--clear bilaterally, no respiratory distress, no accessory muscle use. Abdomen--normal bowel sounds and soft. Nontender. Nondistended, no hernias or masses, no organomegaly. Extremities--no cyanosis or clubbing. No edema. Dermatologic--normal skin turgor, normal color, no abnormal lymph nodes, no rash. Neurologic--cranial nerves II through XII grossly intact. Rheumatologic--normal range of motion. Psychiatric--normal affect. Results & Data Results & Data ([facility]) Vital Signs (Past 12 Hours) Vital Signs Temp Pulse Resp BP Pulse Ox O2 Del Method 04/16/22 20:50 119 H 23 100 Room Air 04/16/22 20:40 117 H 24 99 Room Air 04/16/22 20:37 122 H 26 H 119/77 100 Room Air 04/16/22 19:37 38.2 C H 146 H 18 123/77 98 Room Air Laboratory Results Laboratory Results WBC 14.76 K/ul (4.8-10.8) H 04/16/22 21: RBC 4.16 M/uL (3.93-5.22) 04/16/22 21: Hgb 11.6 g/dl (12.0-16.0) L 04/16/22: Hct 34.7 % (34.1-44.9) 04/16/22: MCV 83.4 fL (80.0-100.0) 04/16/22: MCH 27.9 pg (25.0-34.0) 04/16/22: MCHC 33.4 g/dL (32.0-36.0) 04/16/22: RDW Std Deviation 40.1 fL (36.4-46.3) 04/16/22 21: RDW Coeff of Mann 13.2 % (11.5-14.5) 04/16/22 21: Plt Count 208 K/uL (130-400) 04/16/22 21: MPV 10.7 fL (9.4-12.3) 04/16/22 21: Immature Gran % (Auto) 0.4 % 04/16/22 21: Neut % (Auto) 79.7 % 04/16/22 21: Lymph % (Auto) 10.0 % 04/16/22 21: Amelia % (Auto) 9.7 % 04/16/22 21: Eos % (Auto) 0.1 % 04/16/22 21: Baso % (Auto) 0.1 % 04/16/22: Neut # (Auto) 11.76 K/uL (1.4-6.5) H 04/16/22 21: Lymph # (Auto) 1.48 K/uL (1.2-3.4) 04/16/22 21: Amelia # (Auto) 1.43 K/uL (0.24-0.82) H 04/16/22 21: Eos # (Auto) 0.01 K/uL (0-0.50) 04/16/22 21: Baso # (Auto) 0.02 K/uL (0-0.2) 04/16/22 21: Immature Gran # (Auto) 0.06 K/uL (0.00-0.02) H 04/16/22 21: Code Status & VTE Plan Code Status Full code VTE Prophylaxis Plan VTE Prophylaxis will be ordered: Yes PG Care Time/CCT Total # of Minutes Spent Total Time Spent with Patient: Total time spent is greater than 50% in coordination of care (as documented) at patient's floor/unit and/or counseling patient: Coding Level of Care Code 20146 Initial Inpt Care Lvl 2 Diagnoses Obstruction of left ureteropelvic junction (UPJ) due to stone N20.1 UTI (urinary tract infection) N39.0 History of pericarditis Z86.79 Depression F32.A
[2022-04-16 21:44] LABS: Basophils # (auto) 0.02 K/uL (0-0.2); Basophils % (auto) 0.1 %; Eosinophils # (auto) 0.01 K/uL (0-0.50); Eosinophils % (auto) 0.1 %; Hematocrit (blood only) 34.7 % (34.1-44.9); Hemoglobin 11.6 g/dl (12.0-16.0); Immature Granulocytes # (auto) 0.06 K/uL (0.00-0.02); Immature Granulocytes % (auto) 0.4 %; Lymphocytes # (auto) 1.48 K/uL (1.2-3.4); Mean Corpuscular Hemoglobin 27.9 pg (25.0-34.0); Mean Corpuscular Hgb Conc 33.4 g/dL (32.0-36.0); Mean Corpuscular Volume 83.4 fL (80.0-100.0); Mean Platelet Volume 10.7 fL (9.4-12.3); Monocytes # (auto) 1.43 K/uL (0.24-0.82); Monocytes % (auto) 9.7 %; Neutrophils # (auto) 11.76 K/uL (1.4-6.5); Neutrophils % (auto) 79.7 %; Platelet Count 208 K/uL (130-400); RDW Coefficient of Variation 13.2 % (11.5-14.5); RDW Standard Deviation 40.1 fL (36.4-46.3); Red Blood Count 4.16 M/uL (3.93-5.22); White Blood Count 14.76 K/ul (4.8-10.8)
[2022-04-16] MEDS ORDERED: cefTRIAXone SODIUM 1,000 MG in DEXTROSE 5% 50 ML IV SCH (21:45)
[2022-04-16 22:12] LABS: Creatinine Clr Calc Pharmacy 93.7 ml/min; Est GFR (African American) 108.1 ml/min; Est GFR (Non-African American) 93.3 ml/min; Potassium 2.9 mmol/L (3.5-5.1)
[2022-04-16 22:14] LABS: Pregnancy Test, Serum Negative (Negative)
[2022-04-16] MEDS ORDERED: NSS + 20MEQ KCL 20 MEQ/1,000 ML BAG IV SCH (23:08)
[2022-04-16] MEDS ORDERED: ACETAMINOPHEN 1,000 MG/100 ML VIAL IV PRN (23:08)
[2022-04-16] MEDS ORDERED: ONDANSETRON INJ 2 MG/ML 2 ML VIAL IV PRN (23:08)
[2022-04-16] MEDS: SERTRALINE HCL 50 MG TABLET PO SCH (23:29)
[2022-04-16] MEDS: NSS + 20MEQ KCL 20 MEQ/1,000 ML BAG IV SCH (23:29)
[2022-04-16] MEDS: MoRPHine SULFATE 4 MG/ML 1 ML CARP\\VIAL IV PRN (23:30)
[2022-04-17 03:08] LABS: Appearance Urine Turbid (Clear); Bacteria Urine Automated Negative (Negative); Bilirubin Urine Negative (Negative); Blood Urine 1+ (Negative); Color Urine Yellow; Epithelial Cell Urine Auto >30 /lpf (0-5); Glucose Urine UA Negative (Negative); Ketones Urine Trace (Negative); Leukocyte Esterase Urine 2+ (Negative); Nitrite Urine Positive (Negative); Protein Urine Trace (Negative); RBC Urine Automated 0-4 /hpf (0-4); Specific Gravity Urine 1.013 (1.000-1.030); Urobilinogen Urine Negative (Negative); WBC Urine Automated >30 /hpf (0-5); pH Urine 5.5 (4.5-7.5)
[2022-04-17] MEDS: MoRPHine SULFATE 4 MG/ML 1 ML CARP\\VIAL IV PRN ×6 (06:08→23:43)
[2022-04-17] MEDS: ONDANSETRON INJ 2 MG/ML 2 ML VIAL IV PRN ×2 (06:08→12:57)
[2022-04-17] MEDS ORDERED: cefTRIAXone SODIUM 1,000 MG in DEXTROSE 5% 50 ML IV SCH (08:00)
[2022-04-17 08:11] LABS: Basophils # (auto) 0.01 K/uL (0-0.2); Basophils % (auto) 0.1 %; Eosinophils # (auto) 0.03 K/uL (0-0.50); Eosinophils % (auto) 0.3 %; Hematocrit (blood only) 32.4 % (34.1-44.9); Hemoglobin 10.7 g/dl (12.0-16.0); Immature Granulocytes # (auto) 0.08 K/uL (0.00-0.02); Immature Granulocytes % (auto) 0.7 %; Lymphocytes # (auto) 1.12 K/uL (1.2-3.4); Lymphocytes % (auto) 9.9 %; Mean Corpuscular Hemoglobin 27.8 pg (25.0-34.0); Mean Corpuscular Volume 84.2 fL (80.0-100.0); Mean Platelet Volume 10.8 fL (9.4-12.3); Monocytes % (auto) 12.4 %; Neutrophils # (auto) 8.62 K/uL (1.4-6.5); Neutrophils % (auto) 76.6 %; Platelet Count 174 K/uL (130-400); RDW Coefficient of Variation 13.3 % (11.5-14.5); Red Blood Count 3.85 M/uL (3.93-5.22); White Blood Count 11.26 K/ul (4.8-10.8)
[2022-04-17] MEDS: cefTRIAXone SODIUM 1,000 MG in DEXTROSE 5% 50 ML IV SCH (08:29)
[2022-04-17] MEDS: NSS + 20MEQ KCL 20 MEQ/1,000 ML BAG IV SCH ×2 (08:32→18:43)
[2022-04-17 08:45] LABS: BUN Creatinine Ratio 9.3 (10-20); Calcium 7.7 mg/dl (8.5-10.1); Creatinine Clr Calc Pharmacy 109.4 ml/min; Est GFR (African American) 131.1 ml/min; Est GFR (Non-African American) 113.1 ml/min; Magnesium 1.7 mg/dl (1.7-2.4); Phosphorus 2.4 mg/dl (2.5-4.9); Potassium 3.6 mmol/L (3.5-5.1)
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
[2022-04-17] MEDS: KETOROLAC TROMETHAMINE 15 MG/ML VIAL IV PRN ×2 (11:40→21:46)
--- NOTE | 2022-04-17 14:52 | Hospitalist Progress Note ---
Date of Service April 17, 2022 Assessment & Plan (1) Obstruction of left ureteropelvic junction (UPJ) due to stone: Plan: 2 mm left UPJ stone/mild left hydronephrosis- As noted on CT scan from [facility] Seen by urology in emergency department, his feeling is due to the small nature of the stone, there is a reasonable chance the patient may pass the stone without surgical intervention. NSS + KCl 20 mill equivalents at 100 mils per hour Follow urine culture sensitivity Ceftriaxone 1 g IV daily Acetaminophen 1 g IV every 8 hours as needed for mild pain or fever -> Pain under control today. Plan for OR tomorrow with urology. Discussed with urology today. (2) UTI (urinary tract infection): Plan: Antibiotics as above (3) History of pericarditis: Plan: Continue colchicine (4) Depression: Plan: Continue sertraline Admission and Anticipated Discharge Date Admission Date: April 16, 2022 Subjective Seen in the afternoon. No major issues. Pain is under control with Toradol and morphine. Reports no fevers/chills, chest pain, shortness of breath, abdominal pain, nausea, or vomiting. Physical Exam Constitutional: WD/WN, vitals as above Eyes: EOM intact bilaterally; no conjunctival abnormality ENMT: external ear and nose normal, oropharynx normal Neck: trachea midline, no thyromegaly normal visual inspection Respiratory: normal respiratory effort, lungs clear to auscultation no respiratory distress Cardiovascular: RRR, no murmur, no edema Gastrointestinal (Abdomen): Inspection/Auscultation: abdomen normal to inspection; abdomen not distended Musculoskeletal: no cyanosis or clubbing, extremities motor strength 5/5 Skin: no rashes, warm and dry Neurologic: moves all extremities and awake Psychiatric: Orientation: alert, oriented to person and cooperative Results & Data Results & Data ([facility]) Vital Signs (Past 12 Hours) Vital Signs Temp Pulse Resp BP Pulse Ox O2 Del Method 04/17/22 07:54 37.2 C 95 H 20 95/61 L 97 Room Air PG Care Time/CCT Total # of Minutes Spent Total Time Spent with Patient: Total time spent is greater than 50% in coordination of care (as documented) at patient's floor/unit and/or counseling patient: Coding Level of Care Code 86631 Subseq Hosp Care Lvl 2 Diagnoses Obstruction of left ureteropelvic junction (UPJ) due to stone N20.1 UTI (urinary tract infection) N39.0 History of pericarditis Z86.79 Depression F32.A
[2022-04-17] MEDS: ACETAMINOPHEN 1,000 MG/100 ML VIAL IV PRN (17:33)
[2022-04-17] MEDS ORDERED: TAMSULOSIN HCL 0.4 MG CAP PO SCH (21:00)
[2022-04-17] MEDS: SERTRALINE HCL 50 MG TABLET PO SCH (21:48)
[2022-04-18] MEDS: NSS + 20MEQ KCL 20 MEQ/1,000 ML BAG IV SCH (04:15)
[2022-04-18 07:05] LABS: Basophils # (auto) 0.02 K/uL (0-0.2); Basophils % (auto) 0.3 %; Eosinophils # (auto) 0.08 K/uL (0-0.50); Eosinophils % (auto) 1.3 %; Hematocrit (blood only) 31.3 % (34.1-44.9); Hemoglobin 10.3 g/dl (12.0-16.0); Immature Granulocytes # (auto) 0.05 K/uL (0.00-0.02); Immature Granulocytes % (auto) 0.8 %; Lymphocytes # (auto) 1.58 K/uL (1.2-3.4); Lymphocytes % (auto) 26.5 %; Mean Corpuscular Hemoglobin 27.9 pg (25.0-34.0); Mean Corpuscular Hgb Conc 32.9 g/dL (32.0-36.0); Mean Corpuscular Volume 84.8 fL (80.0-100.0); Mean Platelet Volume 10.6 fL (9.4-12.3); Monocytes # (auto) 0.61 K/uL (0.24-0.82); Monocytes % (auto) 10.2 %; Neutrophils # (auto) 3.63 K/uL (1.4-6.5); Neutrophils % (auto) 60.9 %; Platelet Count 185 K/uL (130-400); RDW Coefficient of Variation 13.3 % (11.5-14.5); RDW Standard Deviation 41.1 fL (36.4-46.3); Red Blood Count 3.69 M/uL (3.93-5.22); White Blood Count 5.97 K/ul (4.8-10.8)
[2022-04-18 07:30] LABS: Albumin Level 2.8 gm/dl (3.4-5.0); BUN Creatinine Ratio 13.1 (10-20); Creatinine Clr Calc Pharmacy 134.5 ml/min; Est GFR (African American) 149.1 ml/min; Est GFR (Non-African American) 128.7 ml/min; Magnesium 1.8 mg/dl (1.7-2.4); Phosphorus 2.4 mg/dl (2.5-4.9); Potassium 3.5 mmol/L (3.5-5.1)
[2022-04-18] MEDS: MoRPHine SULFATE 4 MG/ML 1 ML CARP\\VIAL IV PRN (08:16)
[2022-04-18] MEDS: ONDANSETRON INJ 2 MG/ML 2 ML VIAL IV PRN ×2 (08:16→16:46)
[2022-04-18] MEDS: cefTRIAXone SODIUM 1,000 MG in DEXTROSE 5% 50 ML IV SCH (08:21)
--- NOTE | 2022-04-18 08:29 | Urology Progress Note ---
Date of Service April 18, 2022 Assessment & Plan (1) Left ureteral calculus: Plan: 22-year-old female transferred for a 2 mm left proximal ureteral calculus who is also COVID-positive. Hemodynamically stable and labs are improving. Cultures negative to date but still pending final results. Discussed options and I think medical expulsive therapy is reasonable given the size of her stone and her current pain control. I have low concerns for infection at this time. Her issues were likely related to her COVID infection. She agreed that she would prefer to pass the stone as opposed to have another stent. Patient can have a diet Urology will sign off. Urology was sent a message to schedule follow-up in clinic in 1 to 2 weeks with a renal ultrasound to ensure she is doing well on medical expulsive plan. Admission and Anticipated Discharge Date Admission Date: April 16, 2022 Subjective Spoke to patient over the phone as she is COVID-positive. Time of call was 5 minutes. Her pain is well controlled. Her vitals are stable. Her labs are improving. Discussed options and she would like to avoid stent if possible. Review of Systems Review of Systems: 14 point review of systems negative outside of what is listed above in [facility] Results & Data ([facility]) Vital Signs (Past 12 Hours) Vital Signs Temp Pulse Resp BP Pulse Ox O2 Del Method 04/18/22 07:43 36.5 C 84 20 107/74 94 Room Air PG Care Time/CCT Total # of Minutes Spent Total Time Spent with Patient: Total time spent is greater than 50% in coordination of care (as documented) at patient's floor/unit and/or counseling patient: Coding [place] [address] Subseq Hosp Care Lvl 2 Patient Type Established Diagnoses Left ureteral calculus N20.1
[2022-04-18] MEDS: ACETAMINOPHEN 1,000 MG/100 ML VIAL IV PRN (09:29)
--- NOTE | 2022-04-18 11:06 | Discharge Summary ---
Date of Service April 18, 2022 Admission HPI Per Admitting Provider The patient is a 22-year-old female with a past medical history including urinary tract infection, right pyelonephritis, nonsustained V. tach, right kidney stone, hydronephrosis with renal and ureteral calculus obstruction, perinephric abscess, depression, and pericarditis. She was most recently admitted to [facility] from 02/13-02/15/2022 for a right UPJ stone with moderate right hydronephrosis and right ureteral stent insertion. The emergency department at [facility], spoke with urology and [facility], who arranged transfer to [facility] emergency department, with patient being admitted to the hospitalist service with urology consult Principal Diagnosis Left ureteral calculus Discharge Exam General: A&Ox3. NAD. Cooperative. HEENT: Atraumatic, normocephalic.Vision/Hearing intact Pulm: CTAB A&P. -wheezes, -rales, -rhonchi. Symmetrical chest rise. No increase in work of breathing. No respiratory distress. Cardiac: RRR, -mrg. Radial pulses intact and symmetrical. Abdominal: Nontender, nondistended, soft. BS present. L flank pain not worsened on percussion. Discharge Data Allergies Allergy/AdvReac Type Severity Reaction Status Date / Time No Known Allergies Allergy Verified 04/16/22 20:23 Consultations 04/16/22 20:11 Consult Urology Stat 04/16/22 20:12 ED Decision to Admit Stat Procedures Performed Operation Date: 04/16/22 22:00 <No data on this case meets the specified criteria> Hospital Course (1) Left ureteral calculus: 22-year-old female transferred for a 2 mm left proximal ureteral calculus who is also COVID-positive. Low suspicion for UTI. Was seen by urology, discussed expulsive therapy versus stenting. Patient preferred to avoid stenting. L 2mm Calculus - Admit with mild hydro and 2mm stone. Stone seen on OSH CT-Ab/Pelvis. Pt with left flank pain during admit. - Uro consulted. Discussed exuplsive vs stent tx. On risk/benefits discusion pt wished to avoid stenting. +Flomax 0.4mg qHS and will follow urine for stones, weekly BMP. F/u to Uro in 1-2 weeks with repeat US as outpatient - With some fever/chills first day of admission, improved at dc. UA ?contamination. UC pending at d/c, recieved rocephin during admit and continued on cefdinir 300mg BID on d/c for 4 additional days. May d/c cefdinir if final culture negative. Hemodynamically stable. Pain controlled with APAP and toradol. - Cr normal with no leukocytosis at d/c Total Time Total Time Spent Total Time Spent (In Minutes): Time spend day of discharge 31 minutes including direct care, review of labs /images, and documentation Discharge Plan Discharge Items Patient Disposition: Home - Self-Care Reason For Visit: L UPJ STONE, MILD L HYDRO Discharge Diagnosis: Left UPJ stone Condition on Discharge: Fair Activity: Per Instructions section Non-emergency contact: Primary Care Provider Call non-emergency contact if: you have any medication questions, your symptoms worsen, your pain is not controlled and your pain is worsening Follow-up/Referrals: Darvin Arteaga [Primary Care Provider] - (Dr. Arteaga office will call with appointment ) Diet: Regular Addtl Attending Provider Instructions: You are seen in the hospital for a left ureteral kidney stone approximately 2 mm in size. You remained hemodynamically stable and your labs were improving, your kidney numbers (creatinine) was normal at time of discharge. Your case was reviewed with urology. On shared decision making expulsive therapy/expectant management was pursued rather than having a stent placed. You have been placed on Flomax 0.4 mg by mouth in the evenings, this helps relax the musculature related to urination to help pass your stone. You may continue to take Tylenol 500 mg every 4 hours for pain (do not take more than 3000 mg of Tylenol in any 24-hour period), and may take ibuprofen 200-400 mg every 6 hours for pain that is not adequately controlled with Tylenol. Ibuprofen and other NSAIDs can affect kidney function, do not increase the doses of these for inadequately controlled pain. If you continue to have pain not adequately controlled, please contact your primary care provider for reassessm ent or return to the ER for reevaluation. You experienced a low grade fever and chills. Your urine culture was pending at time of discharge, you were continued on cefdinir 300mg twice daily for 4 days for UTI treatment/prevention. If your urine culture results negative, you may stop taking this antibiotic. Follow-up appointment is being scheduled for you with urology in 1 to 2 weeks for repeat renal ultrasound and a repeat BMP to check your progress and kidney function. If you develop any new or worsening symptoms including fever, chills, sweats, chest pain, chest pressure, difficulty breathing, uncontrolled nausea/vomiting, rash, wheezing, passing out or nearly passing out, bleeding, black/bloody bowel movements, or other new or concerning symptoms please call your primary care physician, or call 911 for re-evaluation in the emergency department if you are very concerned. Pending Studies at Discharge: No Stand-Alone Forms: My [facility], Smoking Cessation Medications and DC Order Prescriptions: New tamsulosin 0.4 mg Capsule 0.4 mg PO HS Qty: 14 1RF cefdinir 300 mg capsule 300 mg PO BID 4 Days Qty: 8 0RF Continued sertraline 25 mg tablet 25 mg PO QPM Discharge Orders: Discharge Order (Routine); Ordered 04/18/22 Ordered By: Brayden Castellano Admission Data Admit Date/Time: 04/16/22 21:35 Attending Provider: Brayden Castellano Admit Provider: Bradley Taylor Primary Care Provider: Darvin Arteaga Other Providers: Juan Matt ; Bradley Taylor Coding Level of Care Code D/C DAY MANAGEMENT >30 MINS Diagnoses Left ureteral calculus N20.1
[2022-04-18] MEDS: KETOROLAC TROMETHAMINE 15 MG/ML VIAL IV PRN (16:45)
== END 2022-04-18 17:45 | disposition home or self-care (01) | DRG 690 ==
LOC: ED 19:34 → 2S 21:35 → SUATTDRO 21:35 → 2S 22:28